=== PATIENT | male | born 1940 | race Caucasian/White ===

== ENCOUNTER 2017-01-01 10:59 | Inpatient (IN) | payer MEDICARE ==
[2017-01-01 11:38] LABS: #Eosinphils 0.1 thou/uL (0.0-0.7); #Lymphocytes 0.8 thou/uL (1.20-3.40); #Monocytes 0.5 thou/uL (0.11-0.59); #Neutrophils 4.9 thou/uL (1.40-6.50); %Basophils 0.4 % (0.0-1.0); %Eosinophils 2.3 % (0.0-10.0); %Lymphocytes 12.4 % (21.0-51.0); %Monocytes 7.4 % (0.0-10.0); Hematocrit 41.1 % (42.0-52.0); Mean Platelet Volume 6.9 fL (7.4-10.4); Red Blood Cell (RBC) Count 4.02 mill/uL (4.70-6.10); White Blood Cell (WBC) Count 6.3 thou/uL (4.8-10.8)
[2017-01-01 12:00] LABS: ALT (SGPT) 15 U/L (8-55); AST (SGOT) 19 U/L (5-34); Alkaline Phosphatase 57 U/L (40-150); Anion Gap 15 mmol/L (10-20); BUN (Urea Nitrogen) 19 mg/dL (8.4-25.7); Bilirubin, Total 0.7 mg/dL (0.2-1.2); Calc. Creatinine Clearance 0 mL/min (70-130); Calcium 9.5 mg/dL (7.8-10.44); Carbon Dioxide 22 mmol/L (23-31); Chloride 95 mmol/L (98-107); Estimated GFR-MDRD 86; Globulin 2.9 g/dL (2.4-3.5); Protein, Total 6.9 g/dL (5.8-8.1)
[2017-01-01 12:05] LABS: Troponin I Less than 0.010 ng/mL (< 0.028)
--- NOTE | 2017-01-01 12:35 | CT ---
CT BRAIN: Date: 01/01/17 PROVIDED CLINICAL HISTORY: Seizure. FINDINGS: Evaluation is limited by patient motion. There is no evidence for mass-producing intracranial hemorrhage. There is no shift of the midline str uctures. Basilar cisterns appear patent. The extracranial soft tissues and osseous structures demonst rate no significant abnormality. IMPRESSION: No evidence for intracranial hemorrhage or mass effect, with limitations due to patient motion. POS: JOIE
--- NOTE | 2017-01-01 12:37 | CT ---
CT CERVICAL SPINE: Date: 01/01/17 PROVIDED CLINICAL HISTORY: Fall status post seizure. FINDINGS: There is no evidence for fracture. There is advanced multilevel cervical degenerative change. There i s anterolisthesis of C4 on C5 by approximately 4.0 mm, which appears to be due to degenerative change s at this level. There is no prevertebral soft tissue swelling apparent. The visualized lung apices appear clear. Vascular calcifications are seen. IMPRESSION: No evidence for fracture or traumatic subluxation. Advanced cervical degenerative changes are seen. POS: JOIE
--- NOTE | 2017-01-01 12:39 | RAD ---
PORTABLE CHEST: Date: 01/01/17 PROVIDED CLINICAL HISTORY: Seizure. FINDINGS: No comparisons. Cardiac and mediastinal silhouette is within normal limits. No focal consolidation is evident. The vargas pine nature of this study limits evaluation for pleural fluid and pneumothorax. Vascular calcificatio ns are seen. IMPRESSION: No evidence for an acute cardiopulmonary process. POS: [facility]
[2017-01-01] MEDS ORDERED: Lidocaine 1% w/Epinephrine 1:200K 30 ML VIAL ONE (13:50)
[2017-01-01] MEDS ORDERED: Adacel (T-DAP) 0.5 ML VIAL ONE (14:35)
--- NOTE | 2017-01-01 14:48 | HP ---
PRIMARY CARE PHYSICIAN: Lynette Valdez M.D. REASON FOR ADMISSION: Acute encephalopathy, suspected seizure. HISTORY OF PRESENT ILLNESS: A 76-year-old male who has history of coronary artery disease, hypertens ion, dyslipidemia, and peripheral vascular disease who was brought to emergency room for suspected se izure and encephalopathy. The patient is completely altered, snoring in the emergency room and he is not able to provide any hi story, but patient's present at bedside in the emergency room, who provided most of the history. Today, patient woke up, at that time, he was feeling fine. Both and drank coffee and vargas bsequently patient went to kitchen and patient's noticed voice. At that time, she noticed that the patient was having seizure type of activity and patient was unresponsive and that is why she imme diately called paramedics and subsequently paramedics brought him to the emergency room. In the emergency room, patient had CT brain which did not show any acute process, but patient got inj ury to his head from falling, which had some bleeding. The patient had minor laceration on his scalp . CT cervical spine and chest x-ray was unremarkable. When I saw this patient, the patient was completely disoriented, snoring, though hemodynamically stab le in the emergency room. Today, patient was agitated and combative and before coming to the ER, patient was given Ativan by jorge freire. The patient's reports and gives history of episode which was exactly identical and similar that happened in 09/2016. At that time, patient was in [place], [place]. At that time, patient was in a restaurant and all of suddenly patient became altered and he was having tonic clonic activi ty of hands and he became unresponsive and paramedics were called and patient was taken to [facility]. Patient's reports that overnight patient stayed and patient had all kind of testing including CT, MRI, echo and playground monitor. Next day, patient left AMA. Cardiology recom mended cardiac catheterization, but it was not done. All neuro workup was negative. The patient sta yed in a hotel after leaving against medical advice and patient does not have any recall of 3 days si nce then, even after discharge from the hospital. At that time, patient was combative and has requir ed lot of doses of Ativan during that admission at [place], [place]. After returning to [place], they saw primary care physician as well as the neurologist, aurea Tidwell they looked at all records from [facility] and they could not find any etiology for that e vent. The patient was not kept on any seizure medication. Yesterday, patient had a of a close family member and patient was having difficulty putting t ie on his shirt that was pretty much unusual for him. The patient is pretty much unsteady as well an d he requires a walker, but he never had any fall or any head injury. He did not have any fever, chi lls, nausea, vomiting, constipation, diarrhea, melena, and hematochezia. He did not have any unusual medication or any recent travel. After yesterday's , patient was fatigued, but he was up to his baseline. The patient's and son denies any worsening dementia, but they are feeling that ba sed on their health, they are okay. He never had seizure before September and he did not have any seizure or any other altered mental status in between. REVIEW OF SYSTEMS: All review of systems tried to review with the patient, but unable to review at t his point because of encephalopathy. ALLERGIES: No known drug allergies. CURRENT HOME MEDICATIONS: Aspirin 81 mg daily, Toprol-XL 50 mg twice daily, lisinopril 10 mg twice d aily, hydrochlorothiazide 25 mg p.o. daily, Lipitor 80 mg p.o. at bedtime, Coenzyme Q10 100 mg p.o. d aily, nitroglycerin on p.r.n. basis, cilostazol 100 mg twice daily, omeprazole 20 mg daily, gabapenti n 200 mg twice daily, naproxen 500 mg twice daily, tramadol 50 mg as needed, multivitamin 1 tablet p. o. daily, vitamin D3 1 tablet p.o. daily, Biotin 1 tablet p.o. daily, omega-3 one tablet daily. PAST MEDICAL HISTORY: Coronary artery disease, history of prostate cancer, peripheral vascular disea se, hypertension, dyslipidemia, and history of umbilical hernia. PAST SURGICAL HISTORY: Cardiac catheterization x2, prostatectomy, umbilical hernia repair, right com mon femoral endarterectomy by Dr. Lee. PAST PSYCHIATRIC HISTORY: Reviewed and negative. SOCIAL HISTORY: Patient is . He lives at home with his in [facility]. He drinks a c ouple of beers on a daily basis. He is a former smoker. He quit smoking more than 10 years ago. He denies any other illicit drug abuse. FAMILY HISTORY: No strong family history of premature coronary artery disease, stroke or cancer. No family history of seizure disorder. EMERGENCY ROOM COURSE: Patient is given IV fluid. PHYSICAL EXAMINATION: VITAL SIGNS: Currently in the emergency room, blood pressure 117/75, pulse 93, respiratory rate 22, temperature 98.6, saturation 88% on room air, but 95% on 2-3 liters of nasal cannula oxygen, and weig ht 97.5 kilograms. GENERAL: Patient is currently encephalopathic. No obvious acute distress and hemodynamically stable . HEAD: Normocephalic. The patient does have minor laceration on the scalp on the posterior aspect. EYES: Pupils round and reactive to light. Extraocular muscle intact. No nystagmus. ENT: Oropharynx within normal limits. Moist mucous membranes. No oral lesions. No pharyngeal eryt cosme, no exudate. NECK: Supple. Range of motion is normal. No meningeal signs of irritation. LUNGS: Clear to auscultation without any rhonchi or rales. CARDIAC: S1 and S2 regular without any murmur. ABDOMEN: Obesity present. Bowel sounds present, nontender, nondistended. No organomegaly, no mass, no suprapubic tenderness. BACK: Examination unremarkable. No CVA tenderness. EXTREMITIES: Upper extremity passive movements of all joints are normal. Lower extremity; passive m ovement of all joints are normal. NEUROLOGIC: Detailed neurological examination is not possible, but looking at him, patient is moving all 4 limbs. Unable to find any focal deficits. SKIN: No skin rash. PSYCHIATRIC: Unable to assess at this point. IMAGING AND SIGNIFICANT LABORATORY DATA: 1. CT brain based on my review, no acute intracranial process. CT cervical spine showing degenerati ve spine changes, but no acute fracture or dislocation. Chest x-ray based on my review, no acute car diopulmonary process. 2. CBC: WBC 6.3, hemoglobin 14.5, platelets 169, and MCV 102. 3. BMP: Sodium 128, potassium 4.1, chloride 95, carbon dioxide 22, BUN 19, creatinine 0.87, glucose 117, calcium 9.5. 4. LFT: AST 19, ALT 15, alkaline phosphatase 57, albumin 4.0. CK 204, CK-MB 5.5, troponin I less t [place] 0.010. Prolactin 24.20. 5. EKG based on my review, sinus rhythm without any acute ischemic changes. ASSESSMENT AND PLAN/IMPRESSION: 1. Acute encephalopathy, etiology uncertain. The patient does have elevated prolactin and patient m ight have seizure activity, but this was as per explanation from patient's , patient had full wor kup done regarding this type of event and it was completely unremarkable. We will consult Neurology as well as we will admit him to stroke floor. We will do neuro check every 4 hourly. I will empiric ally start Keppra 1 gram IV twice daily considering this seizure activity. During this admission, we will obtain EEG, MRI brain, echocardiography, carotid ultrasound as a part of workup. We will also check B12 and folate level. We will also check urinalysis and urine drug screen. We will also check magnesium and TSH as a part of workup. 2. Seizure activity. Patient has second episode of similar type of episode. At this point, suspect ing seizure activity, but underlying arrhythmia cannot be entirely excluded. We are doing MRI, carot id ultrasound, echocardiography, EEG, consulting Neurology and starting anti-seizure medication. We will provide necessary to prepare fall, seizure precautions, aspiration precaution and we will keep h im n.p.o. given his encephalopathy at this point. If the patient's condition does not improve, then patient may benefit from a lumbar puncture. 3. Macrocytosis. We will give him multivitamin IV daily. We will check B12, folate level tomorrow, may be related with his alcohol use. 4. Hyponatremia likely related with use of hydrochlorothiazide and may be related with dehydration. Patient will be given IV fluid and we will check random cortisol, TSH, urine osmolarity, and serum o smolarity. 5. Hypertension. Currently, patient's blood pressure is normal, so we will hold all oral blood pres sure medication at this point. When patient is more stable and able to take p.o., then we will resum e patient's home medication after verification of dose. 6. Dyslipidemia. We will check lipid profile tomorrow and when patient is able to take p.o. intake then we will start Lipitor 80 mg p.o. at bedtime. 7. Peripheral vascular disease. Similarly, patient will resume cilostazol 100 mg twice daily upon v erification of dose as well as when patient able to take p.o. As patient is completely encephalopath ic and he is not safe to take any p.o. medication, that is why we will hold all oral medication. 8. Deep venous thrombosis prophylaxis, Lovenox 40 mg subcu daily. 9. Gastrointestinal prophylaxis, Pepcid 20 mg IV b.i.d. 10. Code status: The patient is FULL CODE. The patient's is surrogate decision maker. Disposition plan based on clinical course. We are expecting patient's stay in hospital more than 2 m idnights. Plan of care discussed with the patient, patient's son and other family member at bedside.
[2017-01-01 14:57] LABS: Troponin I 0.073 ng/mL (< 0.028)
[2017-01-01] MEDS ORDERED: Aspirin 300 MG Suppository ONE (16:41)
[2017-01-01] MEDS ORDERED: Ondansetron ODT 4 MG TAB PO PRN (18:15)
[2017-01-01] MEDS ORDERED: Milk Of Magnesia 30 ML UDCUP PO PRN (18:15)
[2017-01-01] MEDS ORDERED: Acetaminophen 325 MG TAB PO PRN (18:15)
[2017-01-01] MEDS ORDERED: Eucerin (Mineral Oil/Petrolatum,White) 30 gm Jar TOP PRN (18:15)
[2017-01-01] MEDS ORDERED: Bisacodyl 10 MG SUPP PR PRN (18:15)
[2017-01-01] MEDS ORDERED: Artificial Tears 18 DROP/0.9 ML EA EYE PRN (18:15)
[2017-01-01] MEDS ORDERED: hydrALAZINE 20 MG/ML VIAL SLOW IVP PRN (18:15)
[2017-01-01] MEDS ORDERED: Loratadine 10 MG TAB PO PRN (18:15)
[2017-01-01] MEDS ORDERED: Diabetic Tussin 200 MG/10 ML UDCUP PO PRN (18:15)
[2017-01-01] MEDS ORDERED: Sodium Chloride 0.65% Nasal 44 ML BOT EA NARE PRN (18:15)
[2017-01-01] MEDS ORDERED: Ondansetron HCl/PF 4 MG/2 ML Vial IVP PRN (18:15)
[2017-01-01] MEDS ORDERED: Mag-Al 1200 mg/1200 mg/30 ML UDCUP PO PRN (18:15)
[2017-01-01] MEDS ORDERED: Loperamide HCl 2 MG CAP PO PRN (18:15)
[2017-01-01] MEDS ORDERED: Lorazepam 2 MG/ML VIAL SLOW IVP PRN (18:15)
[2017-01-01] MEDS ORDERED: Chloraseptic Spray 180 ml Bottle PO PRN (18:15)
[2017-01-01 18:19] VITALS: BMI 24.0
[2017-01-01 18:46] LABS: Troponin I 0.125 ng/mL (< 0.028)
--- NOTE | 2017-01-01 19:54 | ULT ---
ULTRASOUND CAROTID DOPPLER: Date: 01/01/17 HISTORY: Syncope/seizure. COMPARISON: None. TECHNIQUE: Real-time Murphy scale, color Doppler, and spectral analysis of the extracranial carotid arteries and v ertebral arteries was performed with a linear transducer. FINDINGS: Extensive calcific plaque of the common carotid arteries and carotid bulbs. Antegrade flow to both ve rtebral arteries. No elevated peak systolic velocity to suggest hemodynamically significant stenosis. IMPRESSION: No hemodynamically significant stenosis. POS: JOIE
[2017-01-01] MEDS: levETIRAcetam In NaCl (Iso-Os) 1,000 MG in Premix Bag 1 BAG IVPB SCH ×2 (20:10)
[2017-01-01] MEDS: Dextrose 5 % And 0.9 % NaCl 1,000 ML IV SCH (20:10)
[2017-01-01] MEDS: Famotidine/PF 20 mg/2ml Vial SLOW IVP SCH (20:16)
[2017-01-01 22:52] LABS: Bilirubin Negative (Negative); Blood, Urine Negative (Negative); Glucose, Urine (Dipstick) Negative (Negative); Ketone, Urine Trace mg/dL (Negative); Nitrite Negative (Negative); Protein, Urine (Dipstick) Negative (Neg-Trace); Urobilinogen 0.2 mg/dL (0.2-1.0)
[2017-01-01 22:54] LABS: Bacteria/HPF None Seen HPF (None Seen); Hyaline Casts/LPF 0-3 HYALINE CAST LPF (0-3 Hyaline); RBC/HPF 0-3 HPF (0-3); Squamous Epithelial None Seen HPF (0-3); WBC/HPF None Seen HPF (0-3)
[2017-01-01 22:58] LABS: Osmolality, Urine 354 mOsm/kg (300-900)
[2017-01-01 23:03] LABS: Amphetamine Not Detected (NotDetected); Methadone Not Detected (NotDetected); Methamphetamine Not Detected (NotDetected)
[2017-01-01 23:25] LABS: Sodium, Urine 102 mmol/L (Not Available)
[2017-01-02 03:55] LABS: #Eosinphils 0.1 thou/uL (0.0-0.7); #Lymphocytes 0.8 thou/uL (1.20-3.40); #Monocytes 0.6 thou/uL (0.11-0.59); #Neutrophils 4.7 thou/uL (1.40-6.50); %Basophils 0.4 % (0.0-1.0); %Eosinophils 1.3 % (0.0-10.0); %Lymphocytes 12.7 % (21.0-51.0); Hematocrit 37.8 % (42.0-52.0); Mean Platelet Volume 6.8 fL (7.4-10.4); Red Blood Cell (RBC) Count 3.67 mill/uL (4.70-6.10); White Blood Cell (WBC) Count 6.1 thou/uL (4.8-10.8)
[2017-01-02 04:18] LABS: ALT (SGPT) 15 U/L (8-55); AST (SGOT) 22 U/L (5-34); Alkaline Phosphatase 53 U/L (40-150); Anion Gap 13 mmol/L (10-20); BUN (Urea Nitrogen) 16 mg/dL (8.4-25.7); Bilirubin, Total 1.1 mg/dL (0.2-1.2); Calc. Creatinine Clearance 117 mL/min (70-130); Calcium 8.9 mg/dL (7.8-10.44); Carbon Dioxide 23 mmol/L (23-31); Chloride 99 mmol/L (98-107); Estimated GFR-MDRD Greater than 90; Globulin 2.6 g/dL (2.4-3.5); Magnesium 1.5 mg/dL (1.6-2.6); Protein, Total 6.3 g/dL (5.8-8.1)
[2017-01-02] MEDS: Dextrose 5 % And 0.9 % NaCl 1,000 ML IV SCH (06:04)
[2017-01-02] MEDS: levETIRAcetam In NaCl (Iso-Os) 1,000 MG in Premix Bag 1 BAG IVPB SCH ×2 (08:57)
[2017-01-02] MEDS: Famotidine/PF 20 mg/2ml Vial SLOW IVP SCH (08:57)
[2017-01-02] MEDS: Enoxaparin Sodium 40 MG/0.4 ML SYRINGE SC SCH (08:57)
[2017-01-02] MEDS ORDERED: Multivit, Adult Inj 10 ML VIAL IV SCH (09:00)
[2017-01-02] MEDS ORDERED: Multivitamins, Adult 10 ML in Sodium Chloride 0.9% 500 ML IV SCH ×2 (09:00)
--- NOTE | 2017-01-02 09:49 | PDOC.PN ---
- Subjective Encounter Start Date: 01/02/17 Encounter Start Time: 07:15 -: old records requested/rev pt is confused this morning but improved from yesterday, alert and answers questions, no further seizure - Objective Resuscitation Status: Resuscitation Status FULL:Full Resuscitation MAR Reviewed: Yes Vital Signs & Weight: Vital Signs (12 hours) Temp Pulse Resp BP Pulse Ox 01/02/17 07:35 97.7 F 97 20 156/88 H 90 L 01/02/17 04:12 96.6 F L 76 16 130/70 92 L 01/02/17 00:33 97.9 F 81 18 117/52 L 93 L Weight Weight 220 lb 4.8 oz I&O: 01/01/17 01/02/17 01/03/17 06:59 06:59 06:59 Intake Total 1157 Output Total 700 Balance 457 Result Diagrams: 01/02/17 03:42 01/02/17 03:42 EKG Reviewed by me: Yes Phys Exam - Physical Examination Constitutional: NAD HEENT: PERRLA, moist MMs, sclera anicteric Neck: no JVD, supple Respiratory: no wheezing, no rales, no rhonchi Cardiovascular: RRR, no significant murmur, no rub Gastrointestinal: soft, non-tender, no distention, positive bowel sounds Musculoskeletal: no edema, pulses present Neurological: non-focal, moves all 4 limbs Lymphatic: no nodes Psychiatric: normal affect Deviation from normal: confused Skin: no rash, normal turgor Dx/Plan (1) Acute encephalopathy Code(s): G93.40 - ENCEPHALOPATHY, UNSPECIFIED Status: Acute (2) Elevated troponin Code(s): R74.8 - ABNORMAL LEVELS OF OTHER SERUM ENZYMES Status: Acute (3) Hyponatremia Code(s): E87.1 - HYPO-OSMOLALITY AND HYPONATREMIA Status: Acute (4) Seizure Code(s): R56.9 - UNSPECIFIED CONVULSIONS Status: Acute (5) Dyslipidemia Code(s): E78.5 - HYPERLIPIDEMIA, UNSPECIFIED Status: Chronic (6) GERD (gastroesophageal reflux disease) Code(s): K21.9 - GASTRO-ESOPHAGEAL REFLUX DISEASE WITHOUT ESOPHAGITIS Status: Chronic (7) Hypertension Code(s): I10 - ESSENTIAL (PRIMARY) HYPERTENSION Status: Chronic (8) Macrocytic anemia Code(s): D53.9 - NUTRITIONAL ANEMIA, UNSPECIFIED Status: Chronic (9) Obesity (BMI 30.0-34.9) Code(s): E66.9 - OBESITY, UNSPECIFIED Status: Chronic (10) Peripheral neuropathy Code(s): G62.9 - POLYNEUROPATHY, UNSPECIFIED Status: Chronic - Plan cont current plan of care, PT/OT * DC IVF today * start selected home medication * add folic acid and vitamin B12 * medication reviewed as below * symptomatic treatment. * MRI and EEG today * Neurology input pending * start PT today * will monitor * will continue gayathri Review of Systems - Review of Systems Other: not reliable today due to confusion - Medications/Allergies Allergies/Adverse Reactions: Allergies Allergy/AdvReac Type Severity Reaction Status Date / Time BUG SPRAY Allergy Mild Uncoded 01/01/17 22:16 Medications: Current Medications Acetaminophen (Tylenol) 650 mg PO Q4H PRN PRN Reason: Headache/Fever or Pain Al Hydroxide/Mg Hydroxide (Maalox) 30 ml PO Q6H PRN PRN Reason: Heartburn or Indigestion Artificial Tears (Tears Naturale) 0 drop EA EYE PRN PRN PRN Reason: Dry Eyes Aspirin (Aspirin Chewable) 81 mg PO DAILY [facility] Bisacodyl (Dulcolax) 10 mg ND Q24H PRN PRN Reason: Constipation Cilostazol (Pletal) 100 mg PO BID-AC [facility] Cyanocobalamin (Vitamin B-12) 1,000 mcg PO DAILY [facility] Enoxaparin Sodium (Lovenox) 40 mg SC 0900 [facility] Last Admin: 01/02/17 08:57 Dose: 40 mg Folic Acid (Folvite) 1 mg PO DAILY [facility] Gabapentin (Neurontin) 200 mg PO BID [facility] Guaifenesin (Robitussin Sf) 200 mg PO Q4H PRN PRN Reason: Cough Hydralazine HCl (Apresoline) 10 mg SLOW IVP Q4H PRN PRN Reason: Systolic BP > 180 Levetiracetam 1,000 mg/ Device 100 mls @ 200 mls/hr IVPB BID [facility] Last Admin: 01/02/17 08:57 Dose: 100 mls Lisinopril (Zestril) 10 mg PO BID [facility] Loperamide HCl (Imodium) 2 mg PO PRN PRN PRN Reason: Diarrhea/Loose Stools Loratadine (Claritin) 10 mg PO DAILYPRN PRN PRN Reason: Sinus Symptoms Lorazepam (Ativan) 1 mg SLOW IVP Q4H PRN PRN Reason: Anxiety/Agitation Magnesium Hydroxide (Milk Of Magnesium) 30 ml PO DAILYPRN PRN PRN Reason: Constipation Metoprolol Tartrate (Lopressor) 50 mg PO BID [facility] Mineral Oil/White Petrolatum (Eucerin Cream) 0 gm TOP BIDPRN PRN PRN Reason: Dry Skin Nitroglycerin (Nitrostat) 0.4 mg SL Q5MIN PRN PRN Reason: Chest Pain Non-Formulary Medication (Atorvastatin Calcium [Lipitor]) 80 mg PO HS [facility] Non-Formulary Medication (Biotin [Biotin]) 1,000 mcg PO QAM [facility] Non-Formulary Medication (Cholecalciferol (Vitamin D3) [Vitamin D3]) 2,000 unit PO QAM [facility] Non-Formulary Medication (Multivitamin With Minerals [Multiple Vitamin]) 1 tablet PO QAM [facility] Non-Formulary Medication (Ubidecarenone [Coq-10]) 100 mg PO DAILY [facility] Ondansetron HCl (Zofran Odt) 4 mg PO Q6H PRN PRN Reason: Nausea/Vomiting Ondansetron HCl (Zofran) 4 mg IVP Q6H PRN PRN Reason: Nausea/Vomiting Pantoprazole Sodium (Protonix) 40 mg PO DAILY [facility] Phenol (Chloraseptic [place] 180 Ml Bot) 0 ml PO PRN PRN PRN Reason: Sore Throat Sodium Chloride ([place] Nasal [place] 0.65%) 0 ml EA NARE QIDPRN PRN PRN Reason: Nasal Congestion Sodium Chloride (Flush - Normal Saline) 10 ml IVF Q12HR [facility] Last Admin: 01/02/17 08:57 Dose: 10 ml Sodium Chloride (Flush - Normal Saline) 10 ml IVF PRN PRN PRN Reason: Saline Flush Tramadol HCl (Ultram) 50 mg PO Q6H PRN PRN Reason: Mild Breakthrough Pain
[2017-01-02] MEDS ORDERED: traMADol HCl 50 MG TAB PO PRN (09:51)
[2017-01-02] MEDS ORDERED: Nitroglycerin 0.4 MG TAB (25 Tab Bottle) SL PRN (09:51)
--- NOTE | 2017-01-02 12:35 | MRI ---
MRI BRAIN WITH AND WITHOUT CONTRAST: HISTORY: Seizure disorder. COMPARISON: CT brain 01/01/2017. TECHNIQUE: Multiplanar, multisequence MRI performed prior to and after the intravenous administration of contras t. FINDINGS: There is a degree of limitation due to motion throughout all sequences. On the diffusion weighted im aging sequence, there are no abnormal areas of diffusion restriction to suggest infarction. This is confirmed on the ADC map. There is moderate atrophy. There is moderate small vessel white matter disease. No abnormal intraaxial or extraaxial enhancement. IMPRESSION: 1. Severely limited examination due to motion. No acute infarction. 2. Small focus of susceptibility along the right posterior parietal lobe cortex, incompletely evalua liliana due to extensive motion. This may represent a small hemorrhage. A repeat head CT is recommended . POS: JOIE
[2017-01-02] MEDS: Cilostazol 100 MG TAB PO SCH (16:28)
[2017-01-02] MEDS ORDERED: Atorvastatin Calcium 40 MG TAB PO SCH (21:00)
[2017-01-02] MEDS: Gabapentin 100 MG CAP PO SCH (21:09)
[2017-01-02] MEDS: levETIRAcetam 500 MG TAB PO SCH (21:10)
[2017-01-02] MEDS: Metoprolol Tartrate 50 MG TAB PO SCH (21:10)
[2017-01-02] MEDS: Lisinopril 10 MG TAB PO SCH (21:10)
--- NOTE | 2017-01-02 22:07 | CON ---
DATE OF CONSULTATION: 01/02/2017 REASON FOR CONSULTATION: Seizure. HISTORY OF PRESENT ILLNESS: Mr. Reed is a pleasant 76-year-old male who has been consulted for evaluation of seizure-type activity. History is obtained from the patient as well as patient's dictated H&P note. The patient reports that he was in his normal state of health on yesterday. He had gotten up and ate breakfast and drank his coffee. He had gone inside and suddenly passed out. His had witnessed the event, who had noted that she heard a loud noise coming from inside when she went over there she noted for him to be having generalized tonic-clonic convulsion. He was then drowsy and sleepy with postictal confusion. There was no tongue biting or loss of bladder control with this episode. He was brought to the [facility] for further evaluation. He reports that he had another episode of passing out in September of this year. At that time, he was visiting [place] and had passed out. He was taken to nearby hospital where he was evaluated by a neurologist and was not started on any antiepileptic medication as it was felt that this may have been cardiogenic. Since then he has seen statistician applied and had an extensive workup done including 3-week cardiac loop monitor being placed , which all have been normal. He currently denies any headache, chest pain, palpitation, nausea, vomiting, abdominal pain, numbness, tingling or weakness. PAST MEDICAL HISTORY: Significant for hypertension, dyslipidemia, peripheral vascular disease and coronary artery disease. PAST SURGICAL HISTORY: Significant for cardiac catheterization, prostatectomy, umbilical hernia repair, right common femoral endarterectomy. SOCIAL HISTORY: He is . He denies smoking or illicit drug use. He does drink alcohol 1-2 beers on a daily basis. CURRENT MEDICATIONS: Please review MAR. ALLERGIES: No known drug allergies. FAMILY HISTORY: Noncontributory. REVIEW OF SYSTEMS: As mentioned above in the HPI, otherwise negative. PHYSICAL EXAMINATION: VITAL SIGNS: Blood pressure of 153/85, pulse of 98, temperature of 98.5, respirations of 20, O2 sats of 92% on room air. GENERAL: Well-developed, well-nourished male, in no apparent distress. RESPIRATORY: Clear to auscultation bilaterally. CARDIOVASCULAR: Regular rate and rhythm. NEUROLOGIC: Mental status: The patient is awake, alert, oriented x3. Speech and language: Fluent speech. Cranial nerves: Pupils are 3 mm and reactive. Visual solis are intact. Extraocular muscles are intact. No nystagmus noted. Face is symmetric. Tongue and uvula are midline. Motor exam showed normal tone and bulk with a 5/5 strength in both upper and lower extremities. Babinski : Plantar responses flexion bilaterally. Coordination intact to finger-nose- finger and finger tapping bilaterally. LABORATORY DATA: Labs are reviewed, which included CBC, CMP, B12, folate, TSH, prolactin, ammonia level, CPK, CK-MB and troponin, urinalysis and urine drug screen, which is significant for hemoglobin 13.2, hematocrit of 37.8. Sodium 131. Troponin of 0.073, prolactin of 24.2, otherwise unremarkable. IMAGING STUDIES: MRI brain without contrast was reviewed, which showed no acute intracranial abnormality. There is a questionable susceptibility in the right posterior parietal region for which the radiologist has recommended to obtain a head CT. IMPRESSION: Generalized tonic-clonic seizure. ASSESSMENT AND PLAN: Mr. Reed is a pleasant 76-year-old male who presented with passing out spell followed by generalized tonic-clonic convulsions noted by . Given that this is his second episode of passing out with a seizure-like activity. I would recommend starting him on Keppra 500 mg b.i.d. I have reviewed his EEG, which showed mild slowing, but no epileptiform discharges or subtransients estimated. If he remains seizure free , he is okay to be discharged to home with outpatient followup in my clinic in 4 -6 weeks. Thank you for your consultation. KATERYNA
[2017-01-03] MEDS ORDERED: Ubidecarenone 50 MG CAP PO SCH (09:00)
[2017-01-03] MEDS ORDERED: Folic Acid 1 MG TAB PO SCH (09:00)
[2017-01-03] MEDS ORDERED: Multivitamin W/ Minerals 1 TAB PO SCH (09:00)
[2017-01-03] MEDS ORDERED: Cyanocobalamin (Vitamin B-12) 1,000 MCG TAB PO SCH (09:00)
[2017-01-03] MEDS ORDERED: BIOTIN 1000 MCG PO SCH (09:00)
[2017-01-03] MEDS: Gabapentin 100 MG CAP PO SCH (09:20)
[2017-01-03] MEDS: Lisinopril 10 MG TAB PO SCH (09:20)
[2017-01-03] MEDS: levETIRAcetam 500 MG TAB PO SCH (09:21)
[2017-01-03] MEDS: Metoprolol Tartrate 50 MG TAB PO SCH (09:21)
[2017-01-03] MEDS: Cilostazol 100 MG TAB PO SCH (09:21)
[2017-01-03] MEDS: Enoxaparin Sodium 40 MG/0.4 ML SYRINGE SC SCH (09:25)
[2017-01-03 11:45] VITALS: TEMP 97.8
[2017-01-03 13:46] VITALS: BP 140/71
--- NOTE | 2017-01-03 13:53 | PDOC.PN ---
- Subjective Encounter Start Date: 01/03/17 Encounter Start Time: 10:05 -: old records requested/rev Patient seen and examined. No new complaints. No overnight events - Objective Resuscitation Status: Resuscitation Status FULL:Full Resuscitation MAR Reviewed: Yes Vital Signs & Weight: Vital Signs (12 hours) Temp Pulse Pulse Pulse Resp BP BP 01/03/17 11:20 97.8 F 73 71 70 18 140/71 01/03/17 10:33 72 144/88 H 01/03/17 09:20 169/90 H 01/03/17 08:00 97.8 F 73 18 01/03/17 04:45 BP BP Pulse Ox Pulse Ox 01/03/17 11:20 128/78 128/78 95 95 01/03/17 10:33 01/03/17 09:20 01/03/17 08:00 169/90 H 93 L 01/03/17 04:45 95 Weight Weight 202 lb 8 oz I&O: 01/02/17 01/03/17 01/04/17 06:59 06:59 06:59 Intake Total 1157 1600 120 Output Total 700 200 Balance 457 1400 120 Result Diagrams: 01/02/17 03:42 01/02/17 03:42 Phys Exam - Physical Examination Constitutional: NAD HEENT: PERRLA, moist MMs, sclera anicteric Neck: no JVD, supple Respiratory: no wheezing, no rales, no rhonchi Cardiovascular: RRR, no significant murmur, no rub Gastrointestinal: soft, non-tender, no distention, positive bowel sounds Musculoskeletal: no edema, pulses present Neurological: non-focal, normal sensation Psychiatric: normal affect, A&O x 3 Skin: no rash, normal turgor Dx/Plan (1) Acute encephalopathy Code(s): G93.40 - ENCEPHALOPATHY, UNSPECIFIED Status: Acute (2) Elevated troponin Code(s): R74.8 - ABNORMAL LEVELS OF OTHER SERUM ENZYMES Status: Acute (3) Hyponatremia Code(s): E87.1 - HYPO-OSMOLALITY AND HYPONATREMIA Status: Acute (4) Seizure Code(s): R56.9 - UNSPECIFIED CONVULSIONS Status: Acute (5) Dyslipidemia Code(s): E78.5 - HYPERLIPIDEMIA, UNSPECIFIED Status: Chronic (6) GERD (gastroesophageal reflux disease) Code(s): K21.9 - GASTRO-ESOPHAGEAL REFLUX DISEASE WITHOUT ESOPHAGITIS Status: Chronic (7) Hypertension Code(s): I10 - ESSENTIAL (PRIMARY) HYPERTENSION Status: Chronic (8) Macrocytic anemia Code(s): D53.9 - NUTRITIONAL ANEMIA, UNSPECIFIED Status: Chronic (9) Obesity (BMI 30.0-34.9) Code(s): E66.9 - OBESITY, UNSPECIFIED Status: Chronic (10) Peripheral neuropathy Code(s): G62.9 - POLYNEUROPATHY, UNSPECIFIED Status: Chronic - Plan cont current plan of care, 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 * keppra po * follow up with neurology. Review of Systems - Review of Systems Constitutional: negative: Fever, Chills, Sweats, Weakness, Malaise, Other Eyes: negative: Pain, Vision Change, Conjunctivae Inflammation, Eyelid Inflammation, Redness, Other ENT: negative: Ear Pain, Ear Discharge, Nose Pain, Nose Discharge, Nose Congestion, Mouth Pain, Mouth Swelling, Throat Pain, Throat Swelling, Other Respiratory: negative: Cough, Dry, Shortness of Breath, Hemoptysis, SOB with Excertion, Pleuritic Pain, Sputum, Wheezing Cardiovascular: negative: Chest Pain, Palpitations, Orthopnea, Paroxysmal Noc. Dyspnea, Edema, Light Headedness, Other Gastrointestinal: negative: Nausea, Vomiting, Abdominal Pain, Diarrhea, Constipation, Melena, Hematochezia, Other Genitourinary: negative: Dysuria, Frequency, Incontinence, Hematuria, Retention , Other Musculoskeletal: negative: Neck Pain, Shoulder Pain, Arm Pain, Back Pain, Hand Pain, Leg Pain, Foot Pain, Other Skin: negative: Rash, Lesions, Aguilar, Bruising, Other - Medications/Allergies Allergies/Adverse Reactions: Allergies Allergy/AdvReac Type Severity Reaction Status Date / Time BUG SPRAY Allergy Mild Uncoded 01/01/17 22:16 Medications: Current Medications Acetaminophen (Tylenol) 650 mg PO Q4H PRN PRN Reason: Headache/Fever or Pain Al Hydroxide/Mg Hydroxide (Maalox) 30 ml PO Q6H PRN PRN Reason: Heartburn or Indigestion Artificial Tears (Tears Naturale) 0 drop EA EYE PRN PRN PRN Reason: Dry Eyes Aspirin (Aspirin Chewable) 81 mg PO DAILY CUONG Last Admin: 01/03/17 09:21 Dose: 81 mg Atorvastatin Calcium (Lipitor) 80 mg PO HS [facility] Last Admin: 01/02/17 21:09 Dose: 80 mg Bisacodyl (Dulcolax) 10 mg FL Q24H PRN PRN Reason: Constipation Cholecalciferol (Vitamin D3) 2,000 units PO DAILY [facility] Last Admin: 01/03/17 09:21 Dose: 2,000 units Cilostazol (Pletal) 100 mg PO BID-AC [facility] Last Admin: 01/03/17 09:21 Dose: 100 mg Coenzyme Q10 (Coenzyme Q10) 100 mg PO DAILY [facility] Last Admin: 01/03/17 09:20 Dose: 100 mg Cyanocobalamin (Vitamin B-12) 1,000 mcg PO DAILY [facility] Last Admin: 01/03/17 09:21 Dose: 1,000 mcg Enoxaparin Sodium (Lovenox) 40 mg SC 0900 [facility] Last Admin: 01/03/17 09:25 Dose: 40 mg Folic Acid (Folvite) 1 mg PO DAILY [facility] Last Admin: 01/03/17 09:21 Dose: 1 mg Gabapentin (Neurontin) 200 mg PO BID [facility] Last Admin: 01/03/17 09:20 Dose: 200 mg Guaifenesin (Robitussin Sf) 200 mg PO Q4H PRN PRN Reason: Cough Hydralazine HCl (Apresoline) 10 mg SLOW IVP Q4H PRN PRN Reason: Systolic BP > 180 Iron/Minerals/Multivitamins (Theragran M) 1 tab PO DAILY [facility] Last Admin: 01/03/17 09:21 Dose: 1 tab Levetiracetam (Keppra) 500 mg PO BID [facility] Last Admin: 01/03/17 09:21 Dose: 500 mg Lisinopril (Zestril) 10 mg PO BID [facility] Last Admin: 01/03/17 09:20 Dose: 10 mg Loperamide HCl (Imodium) 2 mg PO PRN PRN PRN Reason: Diarrhea/Loose Stools Loratadine (Claritin) 10 mg PO DAILYPRN PRN PRN Reason: Sinus Symptoms Lorazepam (Ativan) 1 mg SLOW IVP Q4H PRN PRN Reason: Anxiety/Agitation Last Admin: 01/03/17 00:26 Dose: 1 mg Magnesium Hydroxide (Milk Of Magnesium) 30 ml PO DAILYPRN PRN PRN Reason: Constipation Metoprolol Tartrate (Lopressor) 50 mg PO BID [facility] Last Admin: 01/03/17 09:21 Dose: 50 mg Mineral Oil/White Petrolatum (Eucerin Cream) 0 gm TOP BIDPRN PRN PRN Reason: Dry Skin Nitroglycerin (Nitrostat) 0.4 mg SL Q5MIN PRN PRN Reason: Chest Pain Ondansetron HCl (Zofran Odt) 4 mg PO Q6H PRN PRN Reason: Nausea/Vomiting Ondansetron HCl (Zofran) 4 mg IVP Q6H PRN PRN Reason: Nausea/Vomiting Pantoprazole Sodium (Protonix) 40 mg PO DAILY [facility] Last Admin: 01/03/17 09:21 Dose: 40 mg Phenol (Chloraseptic [place] 180 Ml Bot) 0 ml PO PRN PRN PRN Reason: Sore Throat Sodium Chloride ([place] Nasal [place] 0.65%) 0 ml EA NARE QIDPRN PRN PRN Reason: Nasal Congestion Sodium Chloride (Flush - Normal Saline) 10 ml IVF Q12HR [facility] Last Admin: 01/03/17 09:21 Dose: 10 ml Sodium Chloride (Flush - Normal Saline) 10 ml IVF PRN PRN PRN Reason: Saline Flush Tramadol HCl (Ultram) 50 mg PO Q6H PRN PRN Reason: Mild Breakthrough Pain
--- NOTE | 2017-01-03 15:27 | DIS ---
DATE OF ADMISSION: 01/01/2017 DATE OF DISCHARGE: 01/03/2017 PRIMARY CARE PHYSICIAN: Dr. Valdez. DISCHARGE DISPOSITION: Home with home health. PRIMARY DISCHARGE DIAGNOSES: 1. Acute encephalopathy. 2. Demand ischemia. 3. Hyponatremia, suspected seizure. SECONDARY DISCHARGE DIAGNOSES: Peripheral neuropathy, obesity, macrocytic anemia, hypertension, jed roesophageal reflux disease and dyslipidemia. PRIMARY PROCEDURE/OPERATION: None. RADIOLOGICAL INVESTIGATION: EEG, which showed diffuse cerebral slow down without any epileptiform ac tivity. CT brain was negative for any acute intracranial process. CT cervical spine negative for an y fracture or dislocation. Chest x-ray was normal. MRI brain was negative for any acute intracrania l process. Carotid Doppler was negative for any stenosis. Echocardiography was unremarkable. DISCHARGE MEDICATIONS: Aspirin 81 mg p.o. daily, Lipitor 80 mg p.o. at bedtime, Biotin 1000 mcg p.o. daily, vitamin D3 2000 units p.o. daily, Pletal 100 mg twice daily, vitamin B12 1000 mcg p.o. daily, folic acid 1 mg p.o. daily, Neurontin 200 mg p.o. b.i.d., hydrochlorothiazide 25 mg p.o. daily, Kepp ra 500 mg p.o. b.i.d., lisinopril 10 mg p.o. b.i.d., metoprolol 50 mg p.o. b.i.d., multivitamin 1 tab let p.o. daily, nitroglycerin 0.4 mg sublingual p.r.n., omeprazole 20 mg p.o. daily, tramadol 50 mg q .6 hourly p.r.n. and Coenzyme Q10 100 mg p.o. daily. CONTRAINDICATIONS: None. CODE STATUS: FULL CODE. 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 Lashae Martines was consulted while in hospital. TEST RESULTS PENDING ON DISCHARGE: None. DISCHARGE PLAN: Post hospital, the patient will follow up with Neurology. HOSPITAL COURSE: A 76-year-old male who was brought to the emergency room for altered mental status. There was suspicion for seizure activity. The patient was admitted by me. Please see my progress note for further detail. We did a metabolic workup and only found with macrocytosis and that is why during this admission, we started folic acid and vitamin B12. We did MRI, which was essentially unre markable. Neurology saw this patient and they recommended to continue Keppra. The patient had initi al CT brain in the emergency room, which was negative. All workup at this time came back unremarkabl e. Now, patient's condition is improved to baseline. Patient's does not want to send him to any ki nd of placement. We arranged home health before discharge. Patient is seen and examined at bedside today. Please see my progress note from today for further details.
== END 2017-01-03 15:38 | disposition home health service (06) | DRG 100 ==
LOC: ERS 10:59 → 2SE 17:59
PROVIDERS: ADMIT Internal Medicine; ATTEND Internal Medicine
PROC: 0HQ0XZZ Repair Scalp Skin, External Approach (ICD-10-PCS; principal; 2017-01-01)
DX: G40.409 Other generalized epilepsy and epileptic syndromes, not intractable, without status epilepticus (principal); G93.40 Encephalopathy, unspecified; I24.8 Other forms of acute ischemic heart disease; G62.9 Polyneuropathy, unspecified; E87.1 Hypo-osmolality and hyponatremia; D53.9 Nutritional anemia, unspecified; I10 Essential (primary) hypertension; S01.01XA Laceration without foreign body of scalp, initial encounter; E78.5 Hyperlipidemia, unspecified; D75.89 Other specified diseases of blood and blood-forming organs; I25.10 Atherosclerotic heart disease of native coronary artery without angina pectoris; I73.9 Peripheral vascular disease, unspecified; W18.30XA Fall on same level, unspecified, initial encounter; Y92.010 Kitchen of single-family (private) house as the place of occurrence of the external cause; Z79.82 Long term (current) use of aspirin; Z85.46 Personal history of malignant neoplasm of prostate; Z90.79 Acquired absence of other genital organ(s); Z87.891 Personal history of nicotine dependence; E66.9 Obesity, unspecified; Z68.28 Body mass index [BMI] 28.0-28.9, adult; K21.9 Gastro-esophageal reflux disease without esophagitis; Z23 Encounter for immunization
CPT/HCPCS: 12001; 36415; 70450; 70553; 71010; 72125; 80053; 80306; 81001; 82140; 82550; 82553; 82570; 82607; 82746; 83605; 83735; 83930; 83935; 84146; 84300; 84443; 84484; 85025; 87086; 90471; 90715; 93005; 93306; 93880; 94760; 95816; 95819; 96360; 96361; A4216; G8978-GP-CL; G8979-GP-CI; G8987-GO-CJ; G8988-GO-CI; J1650; J1953; J2060; J7050; S0028

== ENCOUNTER 2018-06-20 20:36 | Inpatient (IN) | payer MEDICARE ==
[2018-06-20] MEDS ORDERED: Acetaminophen 650 MG Suppository PR PRN (22:32)
[2018-06-20] MEDS ORDERED: Ondansetron PF 4 MG/2 ML Vial IVP PRN (22:32)
[2018-06-20] MEDS ORDERED: Ondansetron ODT 4 MG TAB PO PRN (22:32)
[2018-06-20] MEDS ORDERED: Acetaminophen 325 MG TAB PO PRN (22:32)
[2018-06-20] MEDS ORDERED: Bisacodyl 5 MG TAB PO PRN (22:32)
[2018-06-20] MEDS ORDERED: Senokot S 8.6-50 MG TAB PO PRN (22:32)
[2018-06-20 23:24] VITALS: BMI 28.2
--- NOTE | 2018-06-21 00:05 | HP ---
CODE STATUS: Full. Code status discussed with the patient and his at length. PRIMARY CARE PHYSICIAN: Harsh Valdez MD RESIDENT: Louie Puri MD ATTENDING: Fabio Khan MD CONSULTATIONS: None. CHIEF COMPLAINT: Fatigue. HISTORY OF PRESENT ILLNESS: Mr. Reed is a pleasant 78-year-old male with a past medical history of peripheral vascular disease, seizure disorder, hypertension, hyperlipidemia, and prostate cancer status post radical prostatectomy presents with a 2-day history of generalized weakness, fatigue, malaise, urinary incontinence, and fever up to 103 Fahrenheit. States he had one episode of incontinence yesterday. The patient's spouse stated that they began to check his blood pressure last night and noted that it was trending down from his baseline of 110s to 120s systolic over 60s to 70s diastolic. They contacted the patient's primary care physician who recommended that he go to the ER for evaluation. The patient lives in [place] and was initially seen in the [place] [facility]. [facility] ER COURSE: The patient was seen and evaluated by Dr. Geovani John. Routine labs were drawn including blood and urine cultures. EKG was obtained. Chest x- ray was performed. His lowest blood pressure at [place] was 97/56. He received a fluid bolus of normal saline at 30 mL/kg and then was started on IV normal saline 200 an hour. He received cefepime 2 g IV, Tylenol, and ibuprofen. He was then transferred to the [place] ER for further evaluation. [facility] COURSE: The patient was seen and evaluated by Dr. Catie Sunshine. He received his nightly dose of Dilantin 400 mg and continued to have his normal saline infusion run. PAST MEDICAL HISTORY: 1. Adult onset seizures. 2. Prostate cancer. 3. Hypertension. 4. Hyperlipidemia. 5. Peripheral vascular disease. PAST SURGICAL HISTORY: 1. Tonsillectomy. 2. Right femoral endarterectomy. 3. Radical prostatectomy. ALLERGIES: MALTHION. MEDICATIONS: 1. PreserVision eyedrops two drops two times daily. 2. CoQ10 30 mg daily. 3. Biotin 500 mcg daily. 4. Probiotic 10 billion cell daily. 5. Dilantin extended release 400 mg at bedtime. 6. Naprosyn 500 mg b.i.d. 7. Hydrochlorothiazide 25 mg daily. 8. Lisinopril 10 mg twice daily. 9. Metoprolol tartrate 50 mg twice daily. 10. Lipitor 80 mg at bedtime. 11. Pletal 100 mg twice daily. SOCIAL HISTORY: The patient reports drinking several glasses of scotch every day. States his last drink was yesterday evening. He is a former smoker and smoked for over 30 years, but quit back in 1998. Denies illicit drug use. Currently lives at home with his . 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 FAMILY HISTORY: Unremarkable. REVIEW OF SYSTEMS: A 12-point review of systems was performed and was negative except for the pertinent positives or negatives listed in history of present illness. PHYSICAL EXAMINATION: VITAL SIGNS: At this time, blood pressure 109/63, pulse 87, respiratory rate 20 , temperature 98.8, pulse ox 97% on room air. Current weight 90.72 kg. GENERAL: No acute distress. Alert and oriented x4. Well developed, well nourished, appropriately interactive. HEENT: Normocephalic, atraumatic. External ocular movements intact. No scleral icterus or conjunctivitis noted. External ears and nose are grossly normal. Mouth reveals normal dentition, mildly dry, tacky mucous membranes. NECK: Supple without lymphadenopathy or thyromegaly. CARDIOVASCULAR: Normal rate, regular rhythm. Pulses full and equal bilaterally. PULMONARY: Lungs are clear to auscultation bilaterally. Normal effort. No signs of respiratory distress. ABDOMEN: Soft, mildly distended, nontender to palpation. No guarding, rebound , or rigidity noted. No suprapubic pain noted. EXTREMITIES: No cyanosis or edema noted. NEUROLOGIC: No focal deficits. Moves all four limbs equally. MUSCULOSKELETAL: No gross abnormalities or defects. SKIN: Warm, dry, and intact without lesions. PSYCHIATRIC: Mood and affect are appropriate. The patient appears decisional. LABORATORY FINDINGS: CBC; white blood cell count 12.1, hemoglobin 13, hematocrit 37.3, MCV 99, platelets of 145, neutrophils 85%. CMP; sodium 130, potassium 4.0, chloride 92, bicarb 24, BUN 27, creatinine 1.02, EGFR 71, glucose 107, calcium 9.7, total bilirubin 0.4, AST 46, ALT 24, alkaline phosphatase 98. Serum protein 7.1, albumin 3.1, globulin 3.2. Other laboratory data; phenytoin level 11.1, lactic acid 2.5. Urinalysis, color yellow, clarity clear, pH 6.0, specific gravity 1.015, protein 100, glucose negative, ketones negative, blood moderate, nitrite negative, bilirubin negative, urobilinogen 1.0, leukocyte esterase moderate, rbc's 4-6 per high- power field, white blood cells 21 to 50 per high-power field, squamous epithelial 0 to 3 per high-power field, bacteria +1. IMAGING DATA: Reviewed by me. Chest x-ray, one view, shows no acute processes. Report read as cardiomegaly with no acute abnormalities. EKG reviewed by me shows sinus tachycardia with a rate of 120, OR interval 188, QTc interval 412. No obvious ST depressions or elevations. ASSESSMENT AND PLAN: Mr. Reed is a 78-year-old male with a past history of a radical prostatectomy following prostate cancer. He presents with a 2-day history of fever, chills, urinary symptoms. He was found to initially be tachycardic and hypotensive in the ER, which has responded to fluid resuscitation. He is being admitted for treatment of the following conditions. 1. Sepsis secondary to urinary tract infection. Urine culture and blood cultures are pending at this time. We will continue cefepime and add vancomycin given the severity of his sepsis and his history of surgery. Continue IV lactated Ringer at 125 mL an hour. We will adjust fluid rates pending vitals. He is currently hemodynamically stable. 2. Seizure disorder. Continue home Dilantin. Dilantin level at [place] [facility] was within normal limits. 3. Peripheral vascular disease. Continue Pletal. 4. Hypertension. Hold antihypertensives during the acute phase of his illness. We will order a transthoracic echocardiogram as the patient said he was scheduled to have this performed this week in the outpatient setting. There is a need to assess his cardiac function during his acute illness. No acute signs of heart failure at this time. 5. Hyperlipidemia. Continue Lipitor. 6. Peripheral vascular disease, stable. 7. Alcohol use disorder. AMBROSE protocol ordered, monitor. 8. History of tobacco abuse, he is currently not smoking. 9. Acute kidney injury likely secondary to his underlying sepsis. We will continue IV fluid resuscitation and repeat basic metabolic panel in the morning. 10. Elevated lactate, likely due to sepsis trend. Continue fluid resuscitation. 11. Diet, heart healthy. 12. Prophylaxis, fall, SCDs. 13. Code status. Full code. History and physical examination and management of this patient were discussed with Dr. Khan who was in agreement unless otherwise stated in his attestation. Job ID: [id number] MTDD
[2018-06-21] MEDS: Lactated Ringer's 1,000 ML IV SCH ×2 (01:10→07:57)
[2018-06-21] MEDS: Vancomycin HCl 1 GM in Premix Bag 1 BAG IVPB SCH ×2 (01:13→12:32)
[2018-06-21] MEDS: Cefepime 1 GM in Sodium Chloride 0.9% 100 ML IVPB SCH ×2 (05:08→19:02)
[2018-06-21 05:56] LABS: #Lymphocytes 0.5 thou/uL (1.20-3.40); #Monocytes 0.9 thou/uL (0.11-0.59); #Neutrophils 7.9 thou/uL (1.40-6.50); %Eosinophils 0.2 % (0.0-10.0); %Lymphocytes 4.9 % (21.0-51.0); %Monocytes 9.6 % (0.0-10.0); %Neutrophils 85.3 % (42.0-75.0); Hemoglobin 11.3 g/dL (14.0-18.0); Mean Corpuscular HGB CONC 34.9 g/dL (32.0-36.0); Mean Corpuscular Hemoglobin 36.4 pg (27.0-31.0); Mean Platelet Volume 7.9 fL (7.4-10.4); Platelet Count 136 thou/uL (130-400); RBC Distribution Width 12.2 % (11.5-14.5); Red Blood Cell (RBC) Count 3.12 mill/uL (4.70-6.10); White Blood Cell (WBC) Count 9.2 thou/uL (4.8-10.8)
[2018-06-21] MEDS ORDERED: Vancomycin HCl 1.25 GM in Sodium Chloride 0.9% 250 ML 300 ML IVPB SCH (06:00)
[2018-06-21 06:24] LABS: Anion Gap 12 mmol/L (10-20); BUN (Urea Nitrogen) 22 mg/dL (8.4-25.7); Calc. Creatinine Clearance 107 mL/min (70-130); Calcium 8.5 mg/dL (7.8-10.44); Carbon Dioxide 21 mmol/L (23-31); Chloride 99 mmol/L (98-107); Estimated GFR-MDRD Greater than 90; Glucose 119 mg/dL (83-110); Potassium 3.4 mmol/L (3.5-5.1); Sodium 129 mmol/L (136-145)
[2018-06-21] MEDS: Aspirin Chewable 81 MG TAB PO SCH (07:58)
[2018-06-21] MEDS: Cilostazol 100 MG TAB PO SCH ×2 (07:58→16:47)
[2018-06-21] MEDS: Ubidecarenone 50 MG CAP PO SCH (07:58)
[2018-06-21] MEDS ORDERED: Potassium Chloride 20 MEQ TAB PO SCH (08:30)
[2018-06-21] MEDS ORDERED: Non-Formulary Item 1 EACH (Biotin [Biotin] 1,000 MCG) PO SCH (09:00)
[2018-06-21] MEDS: Sodium Chloride 0.9% 1,000 ML IV SCH ×2 (09:08→17:00)
--- NOTE | 2018-06-21 10:37 | PDOC.FM ---
- Subjective Subjective: VANESSA overnight. Pt reports he is feeling better since admission. Otherwise, no complaints. - Objective MAR Reviewed: Yes Vital Signs & Weight: Vital Signs (12 hours) Temp Pulse Resp BP BP Pulse Ox 06/21/18 07:43 98.6 F 105 H 18 126/73 93 L 06/21/18 05:30 99.7 F H 06/21/18 04:00 100.9 F H 111 H 22 H 153/87 H 153/87 H 94 L 06/20/18 23:30 121/73 95 06/20/18 23:00 97.6 F 97 121/73 95 Weight Weight 91.767 kg I&O: 06/20/18 06/21/18 06/22/18 06:59 06:59 06:59 Intake Total 800 Output Total 300 Balance 500 Result Diagrams: 06/21/18 05:08 06/21/18 05:08 Phys Exam - Physical Examination Constitutional: NAD HEENT: PERRLA, sclera anicteric Neck: no nodes, no JVD Respiratory: no wheezing, no rales, no rhonchi, clear to auscultation bilateral Cardiovascular: RRR, no significant murmur, no rub Gastrointestinal: soft, non-tender, no distention, positive bowel sounds Musculoskeletal: no edema, pulses present Neurological: non-focal, moves all 4 limbs Skin: no rash, cap refill <2 seconds Dx/Plan (1) Sepsis Code(s): A41.9 - SEPSIS, UNSPECIFIED ORGANISM Status: Acute (2) Urinary tract infection Status: Acute (3) Hyponatremia Code(s): E87.1 - HYPO-OSMOLALITY AND HYPONATREMIA Status: Acute (4) Seizure disorder Code(s): G40.909 - EPILEPSY, UNSP, NOT INTRACTABLE, WITHOUT STATUS EPILEPTICUS Status: Acute (5) Dyslipidemia Code(s): E78.5 - HYPERLIPIDEMIA, UNSPECIFIED Status: Chronic (6) GERD (gastroesophageal reflux disease) Code(s): K21.9 - GASTRO-ESOPHAGEAL REFLUX DISEASE WITHOUT ESOPHAGITIS Status: Chronic (7) Hypertension Code(s): I10 - ESSENTIAL (PRIMARY) HYPERTENSION Status: Chronic - Plan Plan: 1) Sepsis - cont broad spectrum abx and await cultures - check urine gram stain, consider DC vanc if gram neg only - 2/2 UTI 2) UTI: see 1 3) Seizure disorder: - cont home meds 4) Hyponatremia: - pt on thiazide diuretic - will check urine and serum osmoles as well as urine Na - stable and asymptomatic 5)HTN: hold home meds as pt was hypotensive 6) HLD: home meds Dispo: stable. Cont abx and workup hypoNa. Addendum - Attending - Attending Attestation Date/Time: 06/21/18 2307 I personally evaluated the patient and discussed the management with Dr. Lee. I agree with the History, Examination, Assessment and Plan documented above with any addition or exceptions noted below.
[2018-06-21] MEDS ORDERED: Magnesium 2 GM/50 ML 2 GM in Premix Bag 1 BAG IVPB SCH (16:30)
[2018-06-21] MEDS ORDERED: Atorvastatin Calcium 40 MG TAB PO SCH (21:00)
[2018-06-22] MEDS: Sodium Chloride 0.9% 1,000 ML IV SCH ×2 (00:09→09:28)
[2018-06-22] MEDS: Vancomycin HCl 1 GM in Premix Bag 1 BAG IVPB SCH (00:09)
[2018-06-22] MEDS: Cefepime 1 GM in Sodium Chloride 0.9% 100 ML IVPB SCH (05:40)
[2018-06-22 07:23] LABS: Hemoglobin 10.6 g/dL (14.0-18.0); Mean Corpuscular HGB CONC 35.2 g/dL (32.0-36.0); Mean Corpuscular Hemoglobin 36.4 pg (27.0-31.0); Mean Platelet Volume 7.4 fL (7.4-10.4); Platelet Count 129 thou/uL (130-400); RBC Distribution Width 12.3 % (11.5-14.5); Red Blood Cell (RBC) Count 2.92 mill/uL (4.70-6.10); White Blood Cell (WBC) Count 4.6 thou/uL (4.8-10.8)
[2018-06-22 07:25] LABS: Anion Gap 11 mmol/L (10-20); BUN (Urea Nitrogen) 13 mg/dL (8.4-25.7); Calc. Creatinine Clearance 136 mL/min (70-130); Calcium 8.4 mg/dL (7.8-10.44); Carbon Dioxide 20 mmol/L (23-31); Chloride 102 mmol/L (98-107); Estimated GFR-MDRD Greater than 90; Glucose 110 mg/dL (83-110); Potassium 3.6 mmol/L (3.5-5.1); Sodium 129 mmol/L (136-145)
[2018-06-22] MEDS ORDERED: Lisinopril 10 MG TAB PO SCH (09:00)
[2018-06-22] MEDS ORDERED: Hydrochlorothiazide 25 MG TAB PO SCH (09:00)
[2018-06-22] MEDS ORDERED: Metoprolol Tartrate 50 MG TAB PO SCH (09:00)
[2018-06-22] MEDS: Cilostazol 100 MG TAB PO SCH (09:28)
[2018-06-22] MEDS: Aspirin Chewable 81 MG TAB PO SCH (09:28)
[2018-06-22] MEDS: Ubidecarenone 50 MG CAP PO SCH (09:28)
[2018-06-22 10:01] LABS: Band 11 % (5-11); Eosinophils 2 % (0-10); Lymphocytes 11 % (21-51); MDiff Complete? YES; Macrocytosis SLIGHT = 6-15 cells (100X) (0-5/hpf); Monocytes 17 % (0-10); Neutrophil 58 % (42-75); Platelet Morphology Comment Appears Adequate; Polychromasia SLIGHT = 2-3 cells (100X) (0-2/hpf); Reactive Lymphocytes 1 % (0-10)
--- NOTE | 2018-06-22 11:07 | PDOC.FM ---
- Subjective Subjective: VANESSA overnight. Pt reports he feels better. No NVDC. No dysuria. No CVA tenderness. No fever. - Objective Vital Signs & Weight: Vital Signs (12 hours) Temp Pulse Resp BP BP BP Pulse Ox 06/22/18 09:35 163/75 H 06/22/18 07:44 98.4 F 90 18 163/75 H 94 L 06/22/18 03:59 135/74 06/22/18 00:14 99.3 F 106 H 18 135/74 93 L Weight Weight 91.767 kg I&O: 06/21/18 06/22/18 06/23/18 06:59 06:59 06:59 Intake Total 4570 Output Total 1050 Balance 3520 Result Diagrams: 06/22/18 06:30 06/22/18 06:30 Phys Exam - Physical Examination Constitutional: NAD HEENT: PERRLA, sclera anicteric Neck: no nodes, no JVD Respiratory: no wheezing, no rales, no rhonchi, clear to auscultation bilateral Cardiovascular: RRR, no significant murmur, no rub Gastrointestinal: soft, non-tender, no distention, positive bowel sounds Musculoskeletal: no edema, pulses present Neurological: non-focal, moves all 4 limbs Skin: no rash, cap refill <2 seconds Dx/Plan (1) Sepsis Code(s): A41.9 - SEPSIS, UNSPECIFIED ORGANISM Status: Acute (2) Urinary tract infection Status: Acute (3) Hyponatremia Code(s): E87.1 - HYPO-OSMOLALITY AND HYPONATREMIA Status: Acute (4) Seizure disorder Code(s): G40.909 - EPILEPSY, UNSP, NOT INTRACTABLE, WITHOUT STATUS EPILEPTICUS Status: Acute (5) Dyslipidemia Code(s): E78.5 - HYPERLIPIDEMIA, UNSPECIFIED Status: Chronic (6) GERD (gastroesophageal reflux disease) Code(s): K21.9 - GASTRO-ESOPHAGEAL REFLUX DISEASE WITHOUT ESOPHAGITIS Status: Chronic (7) Hypertension Code(s): I10 - ESSENTIAL (PRIMARY) HYPERTENSION Status: Chronic - Plan Plan: 1) Sepsis - resolved 2) UTI: E coli preliminary >100k - rx oral omnicef and stable for DC to home 3) Seizure disorder: - cont home meds 4) Hyponatremia: - pt on thiazide diuretic - DC thiazide and instructed to f/u with PCP provider 5)HTN: resume home meds DC to home 6) HLD: home meds Dispo: stable. Switch to oral ABX and DC to home.
[2018-06-22 16:13] VITALS: BP 146/83; TEMP 98.1
[2018-06-22] MEDS ORDERED: Cefdinir 300 MG CAP PO SCH (21:00)
== END 2018-06-22 15:44 | disposition home or self-care (01) | DRG 872 ==
LOC: ERS 20:36 → T4-A 20:53
PROVIDERS: ADMIT Emergency Medicine; ATTEND Emergency Medicine
DX: A41.9 Sepsis, unspecified organism (principal); N39.0 Urinary tract infection, site not specified; N17.9 Acute kidney failure, unspecified; E87.1 Hypo-osmolality and hyponatremia; K21.9 Gastro-esophageal reflux disease without esophagitis; I73.9 Peripheral vascular disease, unspecified; G40.909 Epilepsy, unspecified, not intractable, without status epilepticus; I10 Essential (primary) hypertension; E78.5 Hyperlipidemia, unspecified; Z85.46 Personal history of malignant neoplasm of prostate; Z90.79 Acquired absence of other genital organ(s); Z90.89 Acquired absence of other organs; Z88.8 Allergy status to other drugs, medicaments and biological substances; Z87.891 Personal history of nicotine dependence
CPT/HCPCS: 36415; 80048; 80053; 82248; 82378; 83605; 83615; 83735; 83930; 83935; 84100; 84300; 84550; 85025; 93306; 96360; 96366; 96375; 96413; 96415; 96417; J0640; J0692; J1100; J2405; J3370; J3475; J3490; J7050; J7070; J9035; J9263

== ENCOUNTER 2018-07-25 11:57 | Outpatient (CLI) | payer MEDICARE ==
[~2018-07-25 11:57] MED LIST: Gadobenate Dimeglumine 529 MG/1 ML (20ML VIAL) ONE
[2018-07-25 12:35] LABS: Estimated GFR-MDRD - POC Greater than 90
--- NOTE | 2018-07-25 13:18 | MRI ---
Brain MRI with and without contrast: 07/25/2018 COMPARISON: 01/02/2017 HISTORY: 2 seizures over the past year, other generalized epilepsy TECHNIQUE: Multiplanar multisequence MR imaging of the brain is obtained with and without contrast us ing seizure protocol. FINDINGS: The diffusion weighted imaging demonstrates no evidence for acute infarction. The gradient echo imaging demonstrates no evidence for intracranial hemorrhage. There is periventricular T2 and FLAIR hyperintensity, evidence of mild small vessel disease. There is moderate cerebral volume loss with associated prominence of the CSF containing spaces. per the seizure protocol, coronal gradient echo and T1 weighted imaging obtained through the temporal lobes. The hippocampi appear symmetric in size, structure, and signal intensity. Arterial flow voids at the axial level of the skull base appear grossly unremarkable on the T2-weight ed imaging. The postcontrast imaging demonstrates no abnormal enhancement within the brain parenchyma. IMPRESSION: Chronic findings as detailed above. No acute findings are seen.
== END 2018-07-25 11:58 | disposition home or self-care (01) ==
LOC: SCSMRI 11:57
PROVIDERS: ATTEND Psychiatry & Neurology Neurology
DX: G40.409 Other generalized epilepsy and epileptic syndromes, not intractable, without status epilepticus (principal); G45.9 Transient cerebral ischemic attack, unspecified
CPT/HCPCS: 70553; 82565; A9577

== ENCOUNTER 2018-09-16 07:56 | Inpatient (IN) | payer MEDICARE ==
[2018-09-16 08:22] LABS: #Monocytes 0.7 thou/uL (0.11-0.59); #Neutrophils 7.5 thou/uL (1.40-6.50); %Basophils 0.5 % (0.0-1.0); %Eosinophils 0.4 % (0.0-10.0); %Lymphocytes 10.7 % (21.0-51.0); %Monocytes 7.9 % (0.0-10.0); %Neutrophils 80.6 % (42.0-75.0); Hemoglobin 13.9 g/dL (14.0-18.0); Mean Corpuscular HGB CONC 34.8 g/dL (32.0-36.0); Mean Corpuscular Hemoglobin 35.3 pg (27.0-31.0); Mean Platelet Volume 7.4 fL (7.4-10.4); Platelet Count 158 thou/uL (130-400); RBC Distribution Width 12.3 % (11.5-14.5); Red Blood Cell (RBC) Count 3.93 mill/uL (4.70-6.10); White Blood Cell (WBC) Count 9.3 thou/uL (4.8-10.8)
--- NOTE | 2018-09-16 09:57 | RAD ---
Exam: Chest one view HISTORY:Chest one view Comparison: 06/20/2018 FINDINGS: Cardiac silhouette:Normal heart size. Atherosclerosis of the aorta. Pulmonary vessels: Normal Costophrenic angles: Clear LUNGS: Right basilar opacities which may represent atelectasis or posttraumatic change. Small left-si ded pneumothorax. Left rib fractures are difficult to appreciate. Extensive subcutaneous emphysema in the left chest wall. No significant cardiomediastinal shift. Pneumothorax: None Osseous abnormalities: Known left rib fractures are difficult to appreciate. IMPRESSION: Small left apical pneumothorax. Posttraumatic change left ribs are difficult to appreciat e radiographically. There is subcutaneous emphysema in the left chest wall.
[2018-09-16] MEDS ORDERED: Dextrose 50% Abboject 50 ML SYRINGE SLOW IVP PRN (10:44)
[2018-09-16] MEDS ORDERED: Ondansetron PF 4 MG/2 ML Vial IVP PRN (10:44)
[2018-09-16] MEDS ORDERED: Ondansetron ODT 4 MG TAB PO PRN (10:44)
[2018-09-16] MEDS ORDERED: Dextrose 5% in Water 1,000 ML IV PRN (10:44)
[2018-09-16] MEDS ORDERED: hydrALAZINE 20 MG/ML VIAL SLOW IVP PRN (10:44)
[2018-09-16] MEDS ORDERED: Cyclobenzaprine 10 MG TAB PO PRN (11:30)
[2018-09-16] MEDS: traMADol HCl 50 MG TAB PO SCH ×2 (12:09→17:43)
[2018-09-16] MEDS: Acetaminophen 650 MG Suppository PR SCH ×2 (12:09→17:43)
[2018-09-16] MEDS: Rib Fracture Protocol PO SCH (12:13)
[2018-09-16] MEDS: Acetaminophen 500 MG TAB PO SCH ×2 (12:14→17:41)
[2018-09-16] MEDS: Ketorolac Tromethamine 30 MG/ML VIAL IVP SCH ×2 (12:15→17:37)
[2018-09-16 12:56] VITALS: BMI 27.8
[2018-09-16 13:24] LABS: Bacteria/HPF 3+ HPF (None Seen); Bilirubin Negative (Negative); Blood, Urine Trace (Negative); Clarity Turbid (Clear); Glucose, Urine (Dipstick) Normal (Negative); Leukocyte 500 Leu/uL (Negative); Nitrite Negative (Negative); Protein, Urine (Dipstick) 10 mg/dL (Neg-Trace); Squamous Epithelial 0-3 HPF (0-3); Urobilinogen Normal mg/dL (Less than 2); WBC/HPF Greater than 50 HPF (0-3)
[2018-09-16 13:26] LABS: Urine Culture Reflex Yes Yes
--- NOTE | 2018-09-16 13:52 | HP ---
CHIEF COMPLAINT: Fall. HISTORY: A 78-year-old male, who has becoming more and more unsteady on his feet, and evidently last night, he got up and he fell into a pocket door, lacerated his scalp, hit his chest. At first, he was not really complaining of anything, but then later in the evening, he started complaining of progressive rib pain and so his brought him to the hospital. PAST MEDICAL HISTORY: Significant for peripheral vascular disease, seizure disorder, coronary artery disease, prostate hypertrophy, daily alcohol, recent urinary tract infection, hypertension, and hyperlipidemia. PAST SURGICAL HISTORY: He has had hernia repairs. He has also had tonsilloadenoidectomy. MEDICATIONS: Include; 1. Aspirin. 2. Plavix. 3. Metoprolol. 4. Lisinopril. 5. Atorvastatin. 6. CoQ10. 7. Dilantin. 8. Omeprazole. 9. Vitamin D. 10. Nitroglycerin. 11. Folic acid. 12. B12. ALLERGIES: HE HAS NO KNOWN DRUG ALLERGIES. FAMILY HISTORY: Family history of heart disease. 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 No tobacco. Heavy alcohol. PHYSICAL EXAMINATION: VITAL SIGNS: Blood pressure 135/69, pulse 89, temperature 97.2, respirations 16. GENERAL: Elderly male, a little bit confused. HEENT: He has a dry scab on the top of his scalp, not actively bleeding. His pupils are equal, round, and reactive to light at 3 mm. NECK: Nontender. Trachea, midline. LUNGS: Clear. He is tender on the left chest wall. ABDOMEN: Obese, soft, nontender. BACK: Nontender. EXTREMITIES: He has poor pulses in his groins and lower extremities. LABORATORY DATA: White count 9.3, hemoglobin and hematocrit are 13 and 39, platelet count 158. His troponin was 0.02. Chest x-ray shows a small left apical pneumo with several rib fractures. CT scan of the chest showed 3rd rib fracture, small left pneumo. CT scan of the cervical spine, no fracture, just some degenerative disease. Brain CT, no intracranial abnormality. ASSESSMENT: Multiple rib fractures, fall, with small pneumo. PLAN: Serial chest x-rays and exams, oxygen. Job ID: [id number]
[2018-09-16] MEDS: Gabapentin 100 MG CAP PO SCH ×2 (14:34→21:59)
[2018-09-16] MEDS: Ibuprofen 600 MG TAB PO SCH ×2 (14:34→21:59)
[2018-09-16] MEDS ORDERED: Sodium Chloride 0.9% 500 ML IV SCH (18:00)
[2018-09-16] MEDS ORDERED: Nitroglycerin 0.4 MG TAB (25 Tab Bottle) SL PRN (19:01)
--- NOTE | 2018-09-16 19:58 | HP ---
TRAUMA ACTIVATION: Level 2. TRAUMA SURGEON: Dr. Grace. HISTORY OF PRESENT ILLNESS: This is a 78-year-old male, who presented to [facility] as a transfer from [facility] status post fall. Per the patient and family at bedside, the patient fell approximately 7 p.m. in the evening prior. This morning, the patient was having left-sided chest pain associated with shortness of breath and requested that his take him to the emergency room. He was seen and evaluated by the ER in [place] and was found to have multiple left-sided rib fractures, left ribs 3 through 7; a small left pneumothorax, approximately 15%; and a left pulmonary contusion. He was transferred to [facility] for further evaluation and care. Upon my evaluation, the patient states that his pain has been relatively well controlled. His saturations were within normal limits on room air. He reports that he fell after he was attempting to ambulate from the kitchen to the bathroom when he became lightheaded and dizzy. He denies chest pain or shortness of breath. He denies loss of consciousness. The patient does have a seizure history. However, he and both deny seizure-like activity. He did strike the top of his head when he fell. He is on dual anti-platelet therapy. CT head was negative. ALLERGIES: NONE. HOME MEDICATIONS: Include; 1. Aspirin 81 mg daily. 2. Cilostazol 100 mg b.i.d. 3. Metoprolol 50 mg b.i.d. 4. Lisinopril 10 mg b.i.d. 5. Atorvastatin 80 mg. 6. Dilantin 400 mg at bedtime. 7. Omeprazole 20 mg. 8. Nitro 0.4 mg sublingual p.r.n. 9. Folic acid. 10. Vitamin B12. 11. Multivitamin. 12. Biotin. 13. CoQ10. 14. Vitamin D3 supplements. 15. Naproxen 500 mg p.r.n. MEDICAL HISTORY: Significant for seizures, coronary artery disease, hypertension, prostate cancer, history of umbilical hernia, hyperlipidemia, peripheral vascular disease. SURGICAL HISTORY: Tonsillectomy, PTCA, prostatectomy, umbilical hernia repair, right iliofemoral bypass, possible axillofemoral bypass planned with Cardiovascular Surgery. 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 He is a current daily drinker, 2 to 3 scotch drinks daily. Remote history of smoking. REVIEW OF SYSTEMS: A 10-point review of systems is performed and negative except as indicated in the HPI. PHYSICAL EXAMINATION: VITAL SIGNS: Blood pressure 148/83, pulse 86, respirations 18, O2 saturation 96% on room air, and temperature 98.8. GENERAL: Elderly appearing male, in no acute distress, sitting in bed. HEAD: There is a 2.5 cm scalp abrasion and skin tear on the top of his scalp. EYES: Pupils are PERRL. Extraocular movements are intact. NECK: Supple. Trachea is midline. There is no midline tenderness to palpation. CHEST: Normal work of breathing, symmetric rise. Appears atraumatic. There is crepitus and tenderness to palpation of the left chest. Lungs are clear to auscultation bilaterally. CARDIOVASCULAR: Regular rate and rhythm. No obvious murmurs, rubs, or gallops. No lower extremity edema. ABDOMEN: Rotund, soft, nontender, nondistended. Bowel sounds are positive. Appears atraumatic. MUSCULOSKELETAL: Back exam within normal limits. Pelvis is stable. Moves all extremities x4 and range of motion within normal limits for the patient. NEUROLOGIC: GCS is 15, although he does have trouble with word finding. No focal deficit is noted. LABORATORY FINDINGS: WBC 9.3, hemoglobin 13.9, hematocrit 39.8, platelet count 158. Sodium 133, potassium 4.2, chloride 97, carbon dioxide 24, BUN 18, creatinine 0.80, glucose 112. LFTs within normal limits. RADIOGRAPHIC FINDINGS: CT brain with no evidence of acute intracranial abnormality. CT of the C-spine was negative for acute bony fracture or dislocation, but did show some degenerative disk disease. CT of the chest read as pneumothorax less than 15%, multiple left-sided rib fractures, and subcutaneous emphysema as well as pulmonary contusion. Chest x-ray with small apical pneumothorax, otherwise, no acute cardiopulmonary process. ASSESSMENT: 1. Status post ground level fall. 2. Acute traumatic pain. 3. Left rib fractures 3 through 7. 4. Pulmonary contusion. 5. Small left pneumothorax, less than 15%. 6. Current daily drinker. 7. History of seizure disorder. 8. Hyponatremia, likely secondary to potomania. 9. Chronic weakness and debility, worsening. 10. History of peripheral vascular disease, on dual anti-platelet therapy. 11. History of hypertension. PLAN: Admit to Trauma Services for observation, pain control. PT, OT, incentive spirometry, and pulmonary toileting. Pain control with rib fracture protocol via p.o. pathway. The patient has been having steady decline in strength and mobility, this is the 2nd fall that he sustained this month. I have recommended inpatient rehab screen as Cardiovascular Surgery has recommended further surgery for his lower extremity claudication and weakness. However, they also recommended that he undergo intensive physical therapy prior to surgery. A.m. chest x-ray and labs. states that she is unsure how much Dilantin the patient took yesterday. We will check Dilantin level. He also has had a recent hospitalization for urinary tract infection and reports that he has demonstrated increased confusion. We will check UA. Given the patient's reported presyncopal symptoms, we will also check orthostatic vital signs. Plan for admission was discussed with the patient and family at bedside and all questions were answered prior to this dictation. Trauma attending has been notified of admission. Job ID: [id number]
[2018-09-16] MEDS ORDERED: Lisinopril 10 MG TAB PO SCH (21:00)
[2018-09-16] MEDS: Oxazepam 10 MG CAP PO SCH (21:51)
[2018-09-16] MEDS: Senokot S 8.6-50 MG TAB PO SCH (21:58)
[2018-09-16] MEDS: Lisinopril 10 MG TAB PO SCH (22:00)
[2018-09-16] MEDS: Atorvastatin Calcium 40 MG TAB PO SCH (22:01)
[2018-09-16] MEDS: Famotidine 20 MG TAB PO SCH (22:01)
[2018-09-16] MEDS: Nitrofurantoin Monohyd/M-Cryst 100 MG CAP PO SCH (22:01)
[2018-09-16] MEDS: Ketotifen Fumarate 0.025% Ophth Soln 5 ml Bottle EA EYE SCH (22:01)
[2018-09-17] MEDS: Ketorolac Tromethamine 30 MG/ML VIAL IVP SCH ×2 (00:58→05:44)
[2018-09-17] MEDS: Acetaminophen 500 MG TAB PO SCH ×4 (01:02→17:40)
[2018-09-17] MEDS: traMADol HCl 50 MG TAB PO SCH ×2 (01:15→05:44)
[2018-09-17] MEDS: Acetaminophen 650 MG Suppository PR SCH ×2 (01:15→05:43)
--- NOTE | 2018-09-17 01:19 | PRG ---
DATE OF SERVICE: 09/16/2018 SUBJECTIVE: This is a 78-year-old gentleman, status post ground level fall, who sustained multiple left rib fractures and a small left pneumothorax. It was informed by the patient's nurse that the patient was becoming increasingly agitated and anxious. The patient was also attempting to get out of bed. On exam, the patient is awake, alert, oriented to person only. The patient's is at bedside and states that she has never seen him this way and the language he is using was very surprising to her. The patient follows all commands at this time. The patient reoriented to place and time. The patient denies any pain. The patient is able to use his incentive spirometer, but gets frustrated easily. The patient mentions that we must be playing a joke on him. Again, the patient reoriented to why he is in the hospital. OBJECTIVE: VITAL SIGNS: 98% on 2 L nasal cannula, temperature 98.4, pulse 90, blood pressure 138/82, and respirations 16. GENERAL: The patient is awake, alert, oriented to person only. The patient follows all simple commands. GCS is 14. HEENT: Pupils are equal bilateral. Mucous membranes are moist. Extraocular movements intact. Trachea is midline. CHEST: Normal work of breathing, chest rise is symmetrical. Bilateral breath sounds clear with no wheezing, rales, or rhonchi. Breathing is regular and nonlabored. CARDIOVASCULAR: Regular rate and rhythm, no obvious murmurs. ABDOMEN: Round, soft, nontender, mildly distended. Bowel sounds positive, the patient is passing gas. MUSCULOSKELETAL: The patient moves all extremities x4. Strength is 5/5 and equal in all extremities. 2+ distal pulses in all extremities. NEUROLOGIC: GCS is 14, cranial nerves intact, no focal deficits. ASSESSMENT: 1. Status post ground level fall. 2. Acute traumatic pain. 3. Left rib fractures, 3 through 7. 4. Pulmonary contusion. 5. Small left pneumothorax, less than 15%. 6. Current daily drinker. 7. History of seizure disorder. 8. History of hypertension. 9. Hospital delirium. PLAN: Continue supportive care. We will add Serax scheduled as the patient is a daily drinker. Continue pain control. We will encourage ambulation and physical and occupational therapy. Job ID: [id number]
[2018-09-17] MEDS: Ibuprofen 600 MG TAB PO SCH ×3 (05:30→22:14)
[2018-09-17] MEDS: Oxazepam 10 MG CAP PO SCH (05:30)
[2018-09-17 06:10] LABS: #Eosinphils 0.1 thou/uL (0.0-0.7); #Lymphocytes 1.1 thou/uL (1.20-3.40); #Monocytes 0.7 thou/uL (0.11-0.59); #Neutrophils 5.5 thou/uL (1.40-6.50); %Basophils 0.3 % (0.0-1.0); %Eosinophils 1.9 % (0.0-10.0); %Lymphocytes 14.4 % (21.0-51.0); %Monocytes 9.1 % (0.0-10.0); %Neutrophils 74.2 % (42.0-75.0); Mean Corpuscular HGB CONC 34.8 g/dL (32.0-36.0); Mean Corpuscular Hemoglobin 35.5 pg (27.0-31.0); Mean Platelet Volume 7.7 fL (7.4-10.4); Platelet Count 147 thou/uL (130-400); RBC Distribution Width 12.3 % (11.5-14.5); Red Blood Cell (RBC) Count 3.67 mill/uL (4.70-6.10); White Blood Cell (WBC) Count 7.4 thou/uL (4.8-10.8)
[2018-09-17 06:32] LABS: Anion Gap 12 mmol/L (10-20); BUN (Urea Nitrogen) 16 mg/dL (8.4-25.7); Calc. Creatinine Clearance 110 mL/min (70-130); Calcium 9.1 mg/dL (7.8-10.44); Carbon Dioxide 23 mmol/L (23-31); Chloride 101 mmol/L (98-107); Estimated GFR-MDRD Greater than 90; Glucose 105 mg/dL (83-110); Magnesium 1.7 mg/dL (1.6-2.6); Phosphorus 3.7 mg/dL (2.3-4.7); Potassium 3.8 mmol/L (3.5-5.1); Sodium 132 mmol/L (136-145)
[2018-09-17] MEDS ORDERED: Potassium Chloride 40 MEQ in Premix Bag 1 BAG IVPB SCH (08:00)
[2018-09-17] MEDS ORDERED: Magnesium Sulfate 2 GM in Sodium Chloride 0.9% 100 ML IVPB SCH (08:00)
[2018-09-17] MEDS ORDERED: Magnesium 2 GM/50 ML 2 GM in Premix Bag 1 BAG IVPB SCH (08:15)
[2018-09-17] MEDS ORDERED: Enoxaparin Sodium 40 MG/0.4 ML SYRINGE SC SCH (09:00)
[2018-09-17] MEDS ORDERED: Enoxaparin Sodium 30 MG/0.3 ML SYRINGE SC SCH (09:00)
[2018-09-17] MEDS ORDERED: Polyethylene Glycol 3350 17 GM Packet PO SCH (09:00)
[2018-09-17] MEDS ORDERED: traMADol HCl 50 MG TAB PO PRN (09:48)
--- NOTE | 2018-09-17 10:02 | RAD ---
SINGLE VIEW CHEST: Date: 09/17/18 COMPARISON: 09/16/18. HISTORY: Rib fractures with pneumothorax. FINDINGS: Single view of the chest shows normal sized cardiomediastinal silhouette. Air is seen along the left chest wall. There are left-sided rib fractures. No obvious pneumothorax is seen on this examination. No pleural effusion is seen. IMPRESSION: Left rib fractures without visualization of the previously seen pneumothorax. POS: [facility]
[2018-09-17] MEDS: Potassium Chloride 20 MEQ in Premix Bag 1 BAG IVPB SCH ×2 (10:17→17:32)
[2018-09-17] MEDS: Ubidecarenone 50 MG CAP PO SCH (10:18)
[2018-09-17] MEDS: Multivit, Therapeutic 1 TAB PO SCH (10:18)
[2018-09-17] MEDS: Cyanocobalamin (Vitamin B-12) 1,000 MCG TAB PO SCH (10:18)
[2018-09-17] MEDS: Famotidine 20 MG TAB PO SCH ×2 (10:19→22:15)
[2018-09-17] MEDS: Nitrofurantoin Monohyd/M-Cryst 100 MG CAP PO SCH ×2 (10:19→22:14)
[2018-09-17] MEDS: Folic Acid 1 MG TAB PO SCH (10:19)
[2018-09-17] MEDS: Lisinopril 10 MG TAB PO SCH ×2 (10:19→22:14)
[2018-09-17] MEDS: Gabapentin 100 MG CAP PO SCH ×3 (10:19→22:15)
[2018-09-17] MEDS: Senokot S 8.6-50 MG TAB PO SCH ×2 (10:19→22:19)
[2018-09-17] MEDS: Ketotifen Fumarate 0.025% Ophth Soln 5 ml Bottle EA EYE SCH ×2 (10:21→22:12)
[2018-09-17] MEDS: Rib Fracture Protocol PO SCH (11:30)
--- NOTE | 2018-09-17 11:32 | PRG ---
DATE OF SERVICE: 09/17/2018 SUBJECTIVE: This is a 78-year-old male, hospital day 2, status post ground level fall resulting in multiple rib fractures, left pneumothorax and scalp abrasion/skin tear. Overnight, the patient became extremely combative and agitated. The patient has a known history of daily alcohol use, therefore, Serax was initiated. Upon evaluation this morning, the patient is resting in bed, sleeping. He is rather drowsy. at bedside is very concerned about decline in the patient's mental status. She reports that the last time his behavior was similar to this, he had seizures. There has been no seizure activity witnessed by hospital staff or spouse at this time. OBJECTIVE: VITAL SIGNS: Temperature 97.7, pulse 71, respirations 20, O2 saturation 92% on room air, blood pressure 169/82. GENERAL: Elderly appearing male, in no acute distress, resting in bed. Eyes closed. PULMONARY: Normal work of breathing. Symmetric rise. CARDIOVASCULAR: Regular rate and rhythm. GI: Abdomen is soft, nontender, nondistended. MUSCULOSKELETAL: Moves all extremities x4. NEURO: There is no focal deficit noted. The patient is oriented to self and time, somewhat oriented to situation and place. LABORATORY FINDINGS: WBC 7.4, hemoglobin 13.0, hematocrit 37.5, platelet count 147. Sodium 132, potassium 3.8, chloride 101, carbon dioxide 23, BUN 16, creatinine 0.69, glucose 105, phosphorus 3.7, magnesium 1.7. Urinalysis performed yesterday was significant for 500 leukocyte esterase, rbc's 4 to 6, and wbc greater than 50, 3+ bacteria. Preliminary urine culture is presumptive E. coli. No sensitivities available. Chest x-ray this morning demonstrated left-sided rib fractures without evidence of residual pneumothorax, subcutaneous emphysema. Dilantin less than 20. ASSESSMENT: 1. Status post ground level fall. 2. Acute traumatic pain. 3. Left rib fractures 3 through 7. 4. Pulmonary contusion. 5. Small left pneumothorax, improving. 6. Daily alcohol use. 7. History of seizure disorder on Dilantin. 8. Hyponatremia, chronic and at baseline. 9. Escherichia coli urinary tract infection, present on admission. 10. Chronic weakness and debility, worsening. 11. Agitation and delirium. 12. History of peripheral vascular disease on dual anti-platelet therapy. 13. History of hypertension. PLAN: A.m. chest x-ray. PT and OT evaluation. Inpatient rehab has been consulted given the patient's current difficulties with mobility and deconditioning. Speech Therapy evaluation for cognition. Check prolactin level. Resume Dilantin now that his levels have fallen below 20. Empiric antibiotics for UTI, follow culture data. Dual anti-platelet therapy to be continued, no Lovenox per discussion with Dr. Aguirre. Reconcile home medications. Decrease Serax to b.i.d. given somnolence. Hold narcotic pain medication and Flexeril. Continue NSAIDs and Tylenol. Plan of care was discussed with the patient and at bedside. All questions were answered prior to this dictation. The patient was seen and evaluated Dr. Aguirre. Job ID: [id number]
[2018-09-17] MEDS ORDERED: Potassium Chloride 20 MEQ TAB PO SCH (16:45)
[2018-09-17] MEDS: Cilostazol 100 MG TAB PO SCH (17:40)
[2018-09-17] MEDS ORDERED: Oxazepam 10 MG CAP PO SCH (21:00)
[2018-09-17] MEDS: Atorvastatin Calcium 40 MG TAB PO SCH (22:13)
[2018-09-18] MEDS ORDERED: Polyethylene Glycol 3350 17 GM Packet PO PRN (00:25)
[2018-09-18] MEDS ORDERED: Senokot S 8.6-50 MG TAB PO PRN (00:25)
--- NOTE | 2018-09-18 03:25 | PRG ---
DATE OF SERVICE: 09/17/2018 SUBJECTIVE: The patient remains on the surgical floor, status post ground level fall, resulting in multiple rib fractures and left pneumothorax. The patient also sustained a scalp abrasion and skin tear. The patient has had several episodes of diarrhea today. The patient is currently resting comfortably. OBJECTIVE: VITAL SIGNS: Stable. The patient remains afebrile. GENERAL: Elderly male, resting comfortably in bed, no acute distress. PULMONARY: Normal work of breathing, symmetric rise. IMPRESSION: 1. Status post ground level fall. 2. Acute traumatic pain. 3. Left rib fractures, 3 through 7. 4. Pulmonary contusion. 5. Small left pneumothorax, improving. 6. Daily alcohol use. 7. History of seizure disorder, on Dilantin. 8. Urinary tract infection present on admission. 9. Agitation and delirium. 10. History of hypertension. 11. History of peripheral vascular disease, on dual anti-platelet therapy. PLAN: Continue PT/OT. Continue pulmonary toilet and encourage use of incentive spirometer. Continue supportive care. The patient is pending rehab screen. Job ID: [id number]
[2018-09-18] MEDS: Acetaminophen 500 MG TAB PO SCH ×4 (03:27→18:58)
[2018-09-18 04:42] LABS: #Eosinphils 0.2 thou/uL (0.0-0.7); #Lymphocytes 0.9 thou/uL (1.20-3.40); #Monocytes 0.6 thou/uL (0.11-0.59); #Neutrophils 8.7 thou/uL (1.40-6.50); %Basophils 0.4 % (0.0-1.0); %Eosinophils 1.9 % (0.0-10.0); %Lymphocytes 8.5 % (21.0-51.0); %Monocytes 5.9 % (0.0-10.0); %Neutrophils 83.4 % (42.0-75.0); Hemoglobin 13.6 g/dL (14.0-18.0); Mean Corpuscular HGB CONC 33.2 g/dL (32.0-36.0); Mean Corpuscular Hemoglobin 34.6 pg (27.0-31.0); Mean Platelet Volume 7.6 fL (7.4-10.4); Platelet Count 156 thou/uL (130-400); RBC Distribution Width 12.4 % (11.5-14.5); Red Blood Cell (RBC) Count 3.92 mill/uL (4.70-6.10); White Blood Cell (WBC) Count 10.4 thou/uL (4.8-10.8)
[2018-09-18 04:59] LABS: Anion Gap 11 mmol/L (10-20); BUN (Urea Nitrogen) 18 mg/dL (8.4-25.7); Calc. Creatinine Clearance 94 mL/min (70-130); Calcium 9.3 mg/dL (7.8-10.44); Carbon Dioxide 23 mmol/L (23-31); Chloride 103 mmol/L (98-107); Estimated GFR-MDRD Greater than 90; Glucose 127 mg/dL (83-110); Phosphorus 3.5 mg/dL (2.3-4.7); Potassium 3.9 mmol/L (3.5-5.1); Sodium 133 mmol/L (136-145)
[2018-09-18] MEDS: Ibuprofen 600 MG TAB PO SCH ×4 (05:45→22:50)
[2018-09-18] MEDS: Famotidine 20 MG TAB PO SCH ×2 (10:10→20:53)
[2018-09-18] MEDS: Oxazepam 10 MG CAP PO SCH ×3 (10:10→20:54)
[2018-09-18] MEDS: Gabapentin 100 MG CAP PO SCH ×3 (10:10→20:53)
[2018-09-18] MEDS: Nitrofurantoin Monohyd/M-Cryst 100 MG CAP PO SCH ×2 (10:11→20:54)
[2018-09-18] MEDS: Multivit, Therapeutic 1 TAB PO SCH (10:11)
[2018-09-18] MEDS: Ubidecarenone 50 MG CAP PO SCH (10:12)
[2018-09-18] MEDS: Cilostazol 100 MG TAB PO SCH ×2 (10:12→15:46)
[2018-09-18] MEDS: Folic Acid 1 MG TAB PO SCH (10:12)
[2018-09-18] MEDS: Lisinopril 10 MG TAB PO SCH ×2 (10:13→23:13)
[2018-09-18] MEDS: Cyanocobalamin (Vitamin B-12) 1,000 MCG TAB PO SCH (10:13)
[2018-09-18] MEDS: Ketotifen Fumarate 0.025% Ophth Soln 5 ml Bottle EA EYE SCH ×2 (10:13→20:53)
[2018-09-18] MEDS: Aspirin Chewable 81 MG TAB PO SCH (10:13)
[2018-09-18] MEDS: Rib Fracture Protocol PO SCH (10:14)
--- NOTE | 2018-09-18 11:33 | RAD ---
XR Chest 1 View Portable HISTORY: Rib fractures, pneumothorax COMPARISON: Previous day FINDINGS: The heart size stable. Subcutaneous emphysema in the left lateral chest wall is again seen. Left-sided rib fractures are redemonstrated. No definite pneumothorax is seen.
[2018-09-18] MEDS: Atorvastatin Calcium 40 MG TAB PO SCH (20:54)
[2018-09-18] MEDS ORDERED: Cyclobenzaprine 10 MG TAB PO PRN (23:37)
[2018-09-19] MEDS: Acetaminophen 500 MG TAB PO SCH ×4 (00:20→12:55)
[2018-09-19] MEDS: Ibuprofen 600 MG TAB PO SCH ×3 (00:31→12:58)
[2018-09-19] MEDS ORDERED: Melatonin 3 MG TAB PO PRN (01:57)
--- NOTE | 2018-09-19 02:41 | PRG ---
DATE OF SERVICE: 09/19/2018 SUBJECTIVE: The patient is currently on surgical floor. He is hospital day 3 status post ground level fall, which he sustained fractures to his left ribs numbers 3 through 7 and had a small pneumothorax. The patient has not required a chest tube. His chest x-ray by report continues to improve. Pain control has improved with adjustment of pain medication. He is tolerating a diet. He has been working with Physical and Occupational Therapy and he is currently awaiting placement decision. OBJECTIVE: VITAL SIGNS: Stable. The patient is afebrile. GENERAL: He is resting comfortably, seated in a chair beside his bed. He is awake, conversant, responsive, and appropriate. He is able to get to 1000 on his incentive spirometry. LUNGS: Clear to auscultation with moderate to good inspiratory and expiratory effort. HEART: Regular rate and rhythm. ABDOMEN: Soft, slightly distended with normal bowel sounds. The patient does have bowel function reported. ASSESSMENT AND PLAN: 1. Status post ground level fall. 2. Fractures of left ribs 3 through 7. 3. Pulmonary contusion. 4. Small left pneumothorax, resolved. Plan will be to continue supportive care. Encourage physical and occupational therapy and await placement decision. Job ID: [id number]
[2018-09-19] MEDS: Ketotifen Fumarate 0.025% Ophth Soln 5 ml Bottle EA EYE SCH (08:47)
[2018-09-19] MEDS: Nitrofurantoin Monohyd/M-Cryst 100 MG CAP PO SCH (08:48)
[2018-09-19] MEDS: Cilostazol 100 MG TAB PO SCH ×2 (08:48→15:41)
[2018-09-19] MEDS: Ubidecarenone 50 MG CAP PO SCH (08:48)
[2018-09-19] MEDS: Famotidine 20 MG TAB PO SCH (08:49)
[2018-09-19] MEDS: Folic Acid 1 MG TAB PO SCH (08:49)
[2018-09-19] MEDS: Cyanocobalamin (Vitamin B-12) 1,000 MCG TAB PO SCH (08:49)
[2018-09-19] MEDS: Multivit, Therapeutic 1 TAB PO SCH (08:49)
[2018-09-19] MEDS: Gabapentin 100 MG CAP PO SCH ×2 (08:49→15:41)
[2018-09-19] MEDS: Aspirin Chewable 81 MG TAB PO SCH (08:49)
--- NOTE | 2018-09-19 08:49 | RAD ---
Exam: Chest one view HISTORY:Pneumothorax. Rib fracture. Comparison: 09/18/2018 FINDINGS: Cardiac silhouette: Normal Aorta: Unremarkable Pulmonary vessels: Normal Costophrenic angles: Minimal blunting of the left costophrenic angle LUNGS: Left lower lobe opacity obscuring the lateral hemidiaphragm Pneumothorax: None Soft tissues: Stable left neck and chest subcutaneous emphysema Osseous abnormalities: No left rib fractures are difficult to demonstrate radiograph. IMPRESSION: 1. Stable subcutaneous emphysema. 2. No obvious pneumothorax. 3. Pleural and parenchymal changes in the left lung base
[2018-09-19] MEDS: Oxazepam 10 MG CAP PO SCH ×2 (08:50→15:41)
[2018-09-19] MEDS: Lisinopril 10 MG TAB PO SCH (08:50)
[2018-09-19] MEDS: Rib Fracture Protocol PO SCH (08:51)
[2018-09-19 11:43] VITALS: BP 110/68; TEMP 98
--- NOTE | 2018-09-19 21:07 | DIS ---
DATE OF ADMISSION: 09/16/2018 DATE OF DISCHARGE: 09/19/2018 ADMISSION DIAGNOSES: 1. Status post ground level fall. 2. Left rib fracture, 3 through 7. 3. Pulmonary contusion. 4. Small left pneumothorax. 5. Daily alcohol use. 6. History of seizure disorder, on Dilantin. 7. Urinary tract infection. 8. History of peripheral vascular disease, on dual antiplatelet therapy. 9. History of hypertension. DISCHARGE DIAGNOSES: 1. Status post ground level fall. 2. Left rib fracture, 3 through 7. 3. Pulmonary contusion, stable. 4. Small left pneumothorax, improving. 5. Daily alcohol use. 6. History of seizure disorder, on Dilantin. 7. History of peripheral vascular disease, on dual antiplatelet therapy. 8. History of hypertension. 9. Urinary tract infection. 10. Chronic weakness and debility, stable. PROCEDURES: None. HOSPITAL COURSE: The patient is a 78-year-old male, who comes in after a ground level fall, resulting multiple rib fractures, left pneumothorax, scalp abrasion with a history of vascular disease and hypertension. The patient was found out to have UTI upon arrival. UTI resolved. Blood sugar controlled. The patient is able to tolerate regular diet. Normal regimen of urination and bowel movement. The patient is able to walk with physical therapy and occupational therapy. PHYSICAL EXAMINATION: GENERAL: Elderly appearing male, in no distress, resting in bed. VITAL SIGNS: Temperature 98, pulse 93, respiratory rate 20, O2 saturation 98 on nasal cannula 3 L, blood pressure 110/68. LUNGS: Clear bilaterally. HEART: Regular rate and rhythm. ABDOMEN: Soft and nondistended. Normal bowel sounds. EXTREMITIES: Neurovascularly intact. Range of motion on the patient's baseline. NEUROLOGIC: No focal neurologic deficits. DISCHARGE DISPOSITION: Acute rehab facility. DISCHARGE STATUS: Satisfactory. DISCHARGE INSTRUCTIONS: The patient is to take medication as directed. The patient is to participate with physical therapy and occupational therapy. The patient is to use spirometry for pulmonary toilet. The patient is to follow up with Dr. Aguirre at the rehab facility. Job ID: [id number]
== END 2018-09-19 16:55 | DRG 200 ==
LOC: ERS 07:56 → SURG B 10:00
PROVIDERS: ADMIT Surgery; ATTEND Surgery
DX: S27.0XXA Traumatic pneumothorax, initial encounter (principal); S22.42XA Multiple fractures of ribs, left side, initial encounter for closed fracture; E87.1 Hypo-osmolality and hyponatremia; N39.0 Urinary tract infection, site not specified; S27.321A Contusion of lung, unilateral, initial encounter; I25.10 Atherosclerotic heart disease of native coronary artery without angina pectoris; E78.5 Hyperlipidemia, unspecified; I10 Essential (primary) hypertension; W18.30XA Fall on same level, unspecified, initial encounter; S01.01XA Laceration without foreign body of scalp, initial encounter; G40.909 Epilepsy, unspecified, not intractable, without status epilepticus; I73.9 Peripheral vascular disease, unspecified; N40.0 Benign prostatic hyperplasia without lower urinary tract symptoms; B96.20 Unspecified Escherichia coli [E. coli] as the cause of diseases classified elsewhere; R41.0 Disorientation, unspecified; R45.1 Restlessness and agitation; Z85.46 Personal history of malignant neoplasm of prostate; Z79.899 Other long term (current) drug therapy; Z79.01 Long term (current) use of anticoagulants; Z79.82 Long term (current) use of aspirin
CPT/HCPCS: 36415; 71045; 80048; 80185; 81001; 83735; 84100; 84146; 84484; 85025; 87077; 87086; 87186; 94640; G0390; J1650; J1885; J3475; J3480; J7620

== ENCOUNTER 2018-10-04 15:56 | Inpatient (IN) | payer MEDICARE ==
[2018-10-04 16:57] LABS: #Eosinphils 0.2 thou/uL (0.0-0.7); #Lymphocytes 0.9 thou/uL (1.20-3.40); #Monocytes 0.7 thou/uL (0.11-0.59); #Neutrophils 9.5 thou/uL (1.40-6.50); %Basophils 0.1 % (0.0-1.0); %Eosinophils 1.6 % (0.0-10.0); %Lymphocytes 7.6 % (21.0-51.0); %Monocytes 6.4 % (0.0-10.0); %Neutrophils 84.3 % (42.0-75.0); Hemoglobin 12.8 g/dL (14.0-18.0); Mean Corpuscular HGB CONC 35.3 g/dL (32.0-36.0); Mean Corpuscular Hemoglobin 34.8 pg (27.0-31.0); Mean Corpuscular Volume 98.6 fL (78.0-98.0); Mean Platelet Volume 7.3 fL (7.4-10.4); Platelet Count 192 thou/uL (130-400); RBC Distribution Width 12.2 % (11.5-14.5); Red Blood Cell (RBC) Count 3.67 mill/uL (4.70-6.10); White Blood Cell (WBC) Count 11.3 thou/uL (4.8-10.8)
[2018-10-04 17:23] LABS: ALT (SGPT) 12 U/L (8-55); AST (SGOT) 17 U/L (5-34); Albumin 3.6 g/dL (3.4-4.8); Alkaline Phosphatase 140 U/L (40-150); Anion Gap 13 mmol/L (10-20); BUN (Urea Nitrogen) 14 mg/dL (8.4-25.7); Bilirubin, Total 0.2 mg/dL (0.2-1.2); Calc. Creatinine Clearance 0 mL/min (70-130); Carbon Dioxide 21 mmol/L (23-31); Chloride 106 mmol/L (98-107); Estimated GFR-MDRD 88; Globulin 2.5 g/dL (2.4-3.5); Glucose 125 mg/dL (83-110); Potassium 3.7 mmol/L (3.5-5.1); Protein, Total 6.1 g/dL (5.8-8.1); Sodium 136 mmol/L (136-145)
--- NOTE | 2018-10-04 17:25 | CT ---
HEAD CT WITHOUT IV CONTRAST: Date: 10/04/18 HISTORY: Altered mental status, seizure. COMPARISON: 09/16/18. FINDINGS: Stable bilateral atrophy and chronic white matter ischemic change. No focal mass or midline shift. No intra or extra-axial hemorrhage. Sinuses and mastoids are clear of acute process. IMPRESSION: Stable findings. No mass or bleed. POS: [facility]
[2018-10-04 17:58] LABS: Bacteria/HPF 4+ HPF (None Seen); Bilirubin Negative (Negative); Blood, Urine Negative (Negative); Clarity Turbid (Clear); Glucose, Urine (Dipstick) Normal (Negative); Leukocyte 500 Leu/uL (Negative); Nitrite Negative (Negative); Protein, Urine (Dipstick) 50 mg/dL (Neg-Trace); RBC/HPF 0-3 HPF (0-3); Squamous Epithelial 0-3 HPF (0-3); WBC/HPF Greater than 50 HPF (0-3)
[2018-10-04] MEDS ORDERED: Fosphenytoin Sodium 1,500 MG in Sodium Chloride 0.9% 50 ML IVPB SCH (18:00)
[2018-10-04] MEDS ORDERED: cefTRIAXone\\ROCEPHIN 2 GM VIAL ONE (19:27)
--- NOTE | 2018-10-04 21:14 | PDOC.FPRHP ---
- History of Present Illness Chief Complaint: Seizure History of Present Illness: History obtained from and 2 sons at bedside, due to AMS of pt. Pt is a 78 yo M with history of seizures x2 in 2017, CAD, HTN, HLD, and PVD who presents for a seizure. The patient had a fall on 09/16, due to instability. He fell and hit his head. He was admitted and found to have 5 cracked ribs and a punctured lung. While he was here, he was also treated for a UTI. He was discharged on 09/19 to [facility] and was there till 10/01. He was discharged with home health speech and physical therapy. The states the pt has been altered since he came home from rehab. Today, he was working with the physical therapist around 2 pm. He went to use the bathroom and while he was going to sit down had a grand mal seizure. The home health physical therapist was able to lower him on to the toilet. He did not bit his tongue or urinate himself, but he did have a bowel movement. His family called EMS and he was transported to the ER. ED Course: On the way to the hospital, he received 4 mg of Ativan. He had 3 IVs placed, because he pulled out two of them. In the ER, He was found to have a Dilantin level of 6.5 (Normal: 10-20). He was given 1500 mg of Dilantin (17:45 10/04). CT Brain was negative. His WBC was 11.3. He had a UA with turbit urine that was found to have 500 leukocytes, >50 WBC, 4+ kathrine. He was given 2 g of Rocephin (18:33 10/04). CPK was 84, Prolactin was 33.44. - Allergies/Adverse Reactions Allergies Allergy/AdvReac Type Severity Reaction Status Date / Time malathion Allergy Severe Verified 10/04/18 23:57 - Home Medications Medication Instructions Recorded Confirmed Type Atorvastatin Calcium [Lipitor] 80 mg PO HS 06/20/16 10/04/18 History Omeprazole 20 mg PO DAILY 06/20/16 10/04/18 History Ubidecarenone [CoQ-10] 100 mg PO DAILY 06/20/16 10/04/18 History Biotin 500 mg PO DAILY 09/16/18 10/04/18 History Metoprolol Succinate [Toprol XL] 50 mg PO BID 09/16/18 10/04/18 History Phenytoin Sodium Extended 400 mg PO HS 09/16/18 10/04/18 History Cilostazol [Pletal] 100 mg PO BID-AC tab 09/19/18 10/04/18 Rx Hydrochlorothiazide 25 mg PO DAILY 10/04/18 10/04/18 History - History PMHx: Seizure x2 (09/29 & 12/31), CAD, Hx of Prostate Cancer, Hx of Umbilical Hernia, HTN, HLD, PVD PSHx: Prostatectomy, Umbilical Hernia Repair, Tonsillectomy, Heart Cath x2 FHx: Non-contributory Social: He drinks 2-3 glasses of scotch daily, but he has not had any since his hospital admission on 09/16. He used to smoke, but quit in 1998. Previous to that he had a 20 year history of 1PPD. He does not use any recreational drugs. - Review of Systems ROS unobtainable: due to mental status - Vital signs BP: 143/77 HR: 84 RR: 21 Tmax: 97.5 Pox: 100% on 2L Wt: 72.6 kg - Physical Exam Constitutional: other (AMS, pt would not awaken to sternal rub.) HEENT: normocephalic and atraumatic, MMM, oropharynx clear Neck: supple, no LAD Chest: no-tender to palpation Heart: no murmurs/rubs/gallops -Heart: Irregular rhythm, regular rate. Lungs: CTAB Abdomen: soft, non-tender, bowel sounds present -Abdomen: Abdomen is distended Musculoskeletal: normal structure, normal tone -Neurological: Unable to assess. Pt would not follow commands. Skin: no rash/lesions, no jaundice Heme/Lymphatic: no unusual bruising or bleeding, no purpura, no petechia, no LAD FMR H&P: Results - Labs Result Diagrams: 10/05/18 05:02 10/05/18 05:02 Lab results: WBC 11.3 thou/uL (4.8-10.8) H 10/04/18 16:48 Hgb 12.8 g/dL (14.0-18.0) L 10/04/18 16:48 Hct 36.2 % (42.0-52.0) L 10/04/18 16:48 MCV 98.6 fL (78.0-98.0) H 10/04/18 16:48 Plt Count 192 thou/uL (130-400) 10/04/18 16:48 Neutrophils % 84.3 % (42.0-75.0) H 10/04/18 16:48 Sodium 136 mmol/L (136-145) 10/04/18 16:48 Potassium 3.7 mmol/L (3.5-5.1) 10/04/18 16:48 Chloride 106 mmol/L (98-107) 10/04/18 16:48 Carbon Dioxide 21 mmol/L (23-31) L 10/04/18 16:48 BUN 14 mg/dL (8.4-25.7) 10/04/18 16:48 Creatinine 0.85 mg/dL (0.7-1.3) 10/04/18 16:48 Glucose 125 mg/dL (83-110) H 10/04/18 16:48 Calcium 9.0 mg/dL (7.8-10.44) 10/04/18 16:48 Total Bilirubin 0.2 mg/dL (0.2-1.2) 10/04/18 16:48 AST 17 U/L (5-34) 10/04/18 16:48 ALT 12 U/L (8-55) 10/04/18 16:48 Alkaline Phosphatase 140 U/L (40-150) 10/04/18 16:48 Creatine Kinase 84 U/L (30-200) 10/04/18 18:35 Serum Total Protein 6.1 g/dL (5.8-8.1) 10/04/18 16:48 Albumin 3.6 g/dL (3.4-4.8) 10/04/18 16:48 Urine Ketones Negative mg/dL (Negative) 10/04/18 17:25 Urine Blood Negative (Negative) 10/04/18 17:25 Urine Nitrite Negative (Negative) 10/04/18 17:25 Ur Leukocyte Esterase 500 Dennis/uL (Negative) A 10/04/18 17:25 Urine RBC 0-3 HPF (0-3) 10/04/18 17:25 Urine WBC Greater than 50 HPF (0-3) A 10/04/18 17:25 Ur Squamous Epith Cells 0-3 HPF (0-3) 10/04/18 17:25 Urine Bacteria 4+ HPF (None Seen) A 10/04/18 17:25 FMR H&P: A/P - Problem List (1) Acute encephalopathy Current Visit: No Status: Acute Code(s): G93.40 - ENCEPHALOPATHY, UNSPECIFIED (2) Seizure disorder Current Visit: No Status: Acute Code(s): G40.909 - EPILEPSY, UNSP, NOT INTRACTABLE, WITHOUT STATUS EPILEPTICUS (3) Urinary tract infection Current Visit: No Status: Acute Qualifiers: Urinary tract infection type: acute cystitis Hematuria presence: without hematuria Qualified Code(s): N30.00 - Acute cystitis without hematuria (4) Dyslipidemia Current Visit: No Status: Chronic Code(s): E78.5 - HYPERLIPIDEMIA, UNSPECIFIED (5) Hypertension Current Visit: No Status: Chronic Code(s): I10 - ESSENTIAL (PRIMARY) HYPERTENSION Qualifiers: Hypertension type: unspecified Qualified Code(s): I10 - Essential (primary ) hypertension - Plan Pt is a 78 yo M with history of seizures x2 in 2017, CAD, HTN, HLD, and PVD who presents for a seizure. 1. Acute Encephalopathy 2/2 Seizure Dilantin Level: 6 (10-20), Given 1500 mg Dilantin in the ER (17:45 10/04) * Seizure precautions * Bedside swallow eval * Q4H neuro checks * Dilantin level in am * Consulted Dr. Matt, appreciate recs. Will increase home dilantin by 100 mg and make sure pt f/u with him. 2. UTI UA: Turbid, 500 leukocytes, >50 WBC, 4+ Kathrine * Given 2 g of Rocephin in ER (18:33 10/04) * UCx pending * Last UTI was E coli pansensitive * Continue on Rocephin for now 3. HTN BP: 143/77 * Continue home meds: Metoprolol, HCTZ * Will monitor 4. HLD * Continue home med: Lipitor 80 mg 5. PVD * Continue home med: Cilostazol Condition: Stable Diet: NPO till swallow eval DVT Prophylaxis: Lovenox GI Prophylaxis: Continue home Prilosec Precautions: Seizure Code Status: Full Dispo: Obs, we need to titrate home Dilantin and treat UTI. FMR H&P: Upper Level - Pertinent history 78 yo M w/ PMH of seizure disorder presents for seizue that occurred this afternoon prior to admission. Pt was working with hh nurse when he became confused and began convulsing per . Additionally, pts reports he has been increasingly confused over the last 4 days, which she believes is possiby due to a UTI because he has acted similarly in the past. denies trauma, focal wekaness, slurred speech prior to event. In ED pt was given 4 ativan and had a 1500mg dilantin loading dose. CT brain showed NAD. - Pertinent findings ROS: Provided by , pt unable to provide ROS 2/2 ams. PE: Gen: Pt lying in bed with sonorous breath sounds, sporadic/spastic movements of all extremities HEENT: PERRL, MMM, NCAT, no evidence of trauma CV: RRR NO MRG Resp: CTAbl no wrr Abd: Protuberant, soft NTND Neuro: Pt sonorous and appears post ictal. He will occasionally follow commands ; however appears confused. No intelligible speech. He is moving all extremities and has no focal deficit. - Plan Date/Time: 10/04/182111 I, Michael Lee DO, have evaluated this patient and agree with findings/ plan as outlined by software engineer intern resident. Pertinent changes/additions are listed here. 1) Seizure: admit stroke obs - pt given loading dose of dilatin in ed, will recheck dilantin level in am and make sure it is not toxic - spoke with pts neurologist who recommends increase dilantin dose by 100mg ( total 150mg/daily) 2) UTI: - pt had pos UA findings and confusion over last 4 days - given 2g rocephin in ED, will cont rocephin has had only reyes sensitive bacteria in past - await culture 3) HTN: Cont home medications 4) HLD: - cont home medications 5) GERD: - cont home medications 6) Claudication - cont home medications Dispo: stable, admit to stroke obs and recheck am dilantin level. If pt remains post ictal in am consider further imaging. PPX: Lovenox Code status: Full PCP: Courtney Addendum - Attending - Attending Attestation Date/Time: 10/05/18 0806 I personally evaluated the patient and discussed the management with Dr. Ohara and Rosa. I agree with the History, Examination, Assessment and Plan documented above with any addition or exceptions noted below. Still postictal during my eval on 10/04. Continue neuro checks. Low suspicion for meningitis and CT reviewed.
[2018-10-04] MEDS ORDERED: Ondansetron PF 4 MG/2 ML Vial IVP PRN (22:10)
[2018-10-04 23:09] VITALS: BMI 29.0
[2018-10-05 05:29] LABS: #Eosinphils 0.2 thou/uL (0.0-0.7); #Lymphocytes 1.3 thou/uL (1.20-3.40); #Monocytes 0.9 thou/uL (0.11-0.59); #Neutrophils 6.4 thou/uL (1.40-6.50); %Basophils 0.3 % (0.0-1.0); %Lymphocytes 14.9 % (21.0-51.0); %Monocytes 9.6 % (0.0-10.0); %Neutrophils 73.3 % (42.0-75.0); Hemoglobin 12.9 g/dL (14.0-18.0); Mean Corpuscular Hemoglobin 33.9 pg (27.0-31.0); Mean Corpuscular Volume 99.5 fL (78.0-98.0); Mean Platelet Volume 7.4 fL (7.4-10.4); Platelet Count 206 thou/uL (130-400); RBC Distribution Width 12.3 % (11.5-14.5); Red Blood Cell (RBC) Count 3.82 mill/uL (4.70-6.10); White Blood Cell (WBC) Count 8.8 thou/uL (4.8-10.8)
[2018-10-05 05:50] LABS: ALT (SGPT) 13 U/L (8-55); AST (SGOT) 20 U/L (5-34); Albumin 3.7 g/dL (3.4-4.8); Alkaline Phosphatase 145 U/L (40-150); Anion Gap 9 mmol/L (10-20); BUN (Urea Nitrogen) 8 mg/dL (8.4-25.7); Bilirubin, Total 0.3 mg/dL (0.2-1.2); Calc. Creatinine Clearance 117 mL/min (70-130); Calcium 9.2 mg/dL (7.8-10.44); Carbon Dioxide 27 mmol/L (23-31); Chloride 105 mmol/L (98-107); Estimated GFR-MDRD Greater than 90; Globulin 2.6 g/dL (2.4-3.5); Glucose 96 mg/dL (83-110); Potassium 3.1 mmol/L (3.5-5.1); Protein, Total 6.3 g/dL (5.8-8.1); Sodium 138 mmol/L (136-145)
--- NOTE | 2018-10-05 06:09 | PDOC.FM ---
- Subjective Subjective: Patient is seen lying in bed with no clothing on this morning, diaper is displaced. He becomes alert upon stimulation of rubbing arm. He remains alert but oriented to person only. He denies any complaints and continues to ask where Pippa (his ?) is. Telemetry overnight showed sinus rhythm in the 90s. - Objective Vital Signs & Weight: Vital Signs (12 hours) Temp Pulse Resp BP Pulse Ox 10/05/18 04:00 98.1 F 84 20 165/87 H 95 10/05/18 00:00 97.7 F 89 20 96 10/04/18 21:34 97.5 F L 73 20 174/89 H 97 Weight Weight 91.762 kg Result Diagrams: 10/06/18 05:13 10/06/18 05:13 Phys Exam - Physical Examination Constitutional: NAD Alert upon stimulation, oriented to person only. Difficult exam secondary to patient's altered mental state HEENT: moist MMs, sclera anicteric Neck: no JVD, supple, full ROM Respiratory: no wheezing, no rhonchi, clear to auscultation bilateral Cardiovascular: RRR, no significant murmur Gastrointestinal: soft, non-tender, positive bowel sounds Musculoskeletal: no edema, pulses present Neurological: moves all 4 limbs Deviation from normal: AMS Skin: no rash, normal turgor Dx/Plan (1) Acute encephalopathy Code(s): G93.40 - ENCEPHALOPATHY, UNSPECIFIED Status: Acute (2) Seizure Code(s): R56.9 - UNSPECIFIED CONVULSIONS Status: Acute (3) Urinary tract infection Status: Acute Qualifiers: Urinary tract infection type: acute cystitis Hematuria presence: without hematuria Qualified Code(s): N30.00 - Acute cystitis without hematuria (4) Dyslipidemia Code(s): E78.5 - HYPERLIPIDEMIA, UNSPECIFIED Status: Chronic (5) Hypertension Code(s): I10 - ESSENTIAL (PRIMARY) HYPERTENSION Status: Chronic Qualifiers: Hypertension type: unspecified Qualified Code(s): I10 - Essential (primary ) hypertension (6) Peripheral neuropathy Code(s): G62.9 - POLYNEUROPATHY, UNSPECIFIED Status: Chronic Qualifiers: Peripheral neuropathy type: polyneuropathy, unspecified Qualified Code(s): G62.9 - Polyneuropathy, unspecified - Plan Plan: Pt is a 78 yo M with history of seizures x2 in 2017, CAD, HTN, HLD, and PVD who presents for a seizure. 1. Acute Encephalopathy 2/2 Seizure -admission Dilantin Level: 6 (10-20), Given 1500 mg Dilantin in the ER (17:45 ) -home Dilantin currently being held until Dilantin level returns this AM -place on Seizure precautions -Bedside swallow eval -Q4H neuro checks -Consulted Dr. Matt, appreciate recs. Will increase home dilantin by 100 mg when restarted (up to 500mg daily) and make sure f/u outpatient with him. 2. UTI -UA: Turbid, 500 leukocytes, >50 WBC, 4+ Kathrine -Given 2 g of Rocephin in ER (18:33 10/04), will continue Rocephin -UCx pending -Last UTI was E coli pansensitive 3. HTN -BP: 143/77 -Continue home meds: Metoprolol, HCTZ -Will monitor vitals 4. HLD -Continue home med: Lipitor 80 mg 5. PVD -Continue home med: Cilostazol Diet: NPO till swallow eval DVT Prophylaxis: Lovenox GI Prophylaxis: Continue home Prilosec Precautions: Seizure Code Status: FULL Dispo: Stable, admitted to Obs, need to titrate home Dilantin today and treat UTI. Addendum - Attending - Attending Attestation Date/Time: 10/06/18 9494 I personally evaluated the patient and discussed the management with Dr. Rivera. I agree with the History, Examination, Assessment and Plan documented above with any addition or exceptions noted below.
[2018-10-05] MEDS: Hydrochlorothiazide 25 MG TAB PO SCH (08:55)
[2018-10-05] MEDS: Enoxaparin Sodium 40 MG/0.4 ML SYRINGE SC SCH (08:55)
[2018-10-05] MEDS: Cilostazol 100 MG TAB PO SCH ×2 (08:55→15:48)
[2018-10-05] MEDS: Ubidecarenone 50 MG CAP PO SCH (08:56)
[2018-10-05] MEDS ORDERED: Non-Formulary Item 1 EACH (Omeprazole [Omeprazole] 20 MG) PO SCH (09:00)
[2018-10-05] MEDS ORDERED: Prevnar 13-Val Conj/PF 0.5 ML SYRINGE IM ONE (09:00)
[2018-10-05] MEDS ORDERED: BIOTIN 500 MG PO SCH (09:00)
[2018-10-05] MEDS: Potassium Chloride 10 MEQ in Premix Bag 1 BAG IVPB SCH ×3 (11:07→15:49)
[2018-10-05] MEDS ORDERED: Lorazepam 2 MG/ML VIAL SLOW IVP SCH (12:00)
--- NOTE | 2018-10-05 13:00 | CON ---
DATE OF CONSULTATION: 10/05/2018 CONSULT PHYSICIAN: [facility]. IMPRESSION: Recurrent seizure with subtherapeutic Dilantin level of 6.4. PLAN: 1. Continue Dilantin 500 mg per day. 2. The patient can be discharged home today when he is back to his baseline. HISTORY OF PRESENT ILLNESS: Mr. Reed is a 78-year-old male with a history of seizures, coronary artery disease, hypertension, hyperlipidemia, and peripheral vascular disease, who presented yesterday with a recurrent seizure. He apparently fell and hit his head. He was found to have 3 broken ribs and a punctured lung. He was recently treated for urinary tract infection and discharged on the 7th of this month. He has not quite been back to his baseline since his injury. He apparently went to the bathroom prior to admission and had a generalized tonic-clonic seizure. This was witnessed by the therapist. He bit his tongue and urinated on himself. He was transferred back to the hospital for evaluation. His Dilantin level was 6.5. He was given 1500 mg of Dilantin last night. CT scan of the brain was unremarkable. His lab work showed a white blood cell count of 11.3. His urine was suggestive of a urinary tract infection. He was given 2 g of Rocephin last night. Prolactin level was 33.4. He reports this morning that he feels reasonably well. He does not really recall the events that occurred yesterday. He has not had any further seizure activity. PAST MEDICAL HISTORY: As listed above. PAST SURGICAL HISTORY: Tonsillectomy, cardiac catheterization, and prostatectomy. FAMILY HISTORY: Unremarkable. SOCIAL HISTORY: He has 2 to 3 alcoholic beverages per day. He previously smoked, but he does not do so anymore. No illicit drug use. REVIEW OF SYSTEMS: Ten-system review of systems is otherwise unremarkable at this point. PHYSICAL EXAMINATION: GENERAL: He is a well-nourished elderly gentleman, sitting up in bed in an [place] style posture. VITAL SIGNS: Blood pressure 143/77, pulse 84, respirations 20, temperature 97.5. HEENT: Pupils are equal and reactive. Conjunctivae are clear. Oropharynx is clear. NECK: Supple. No lymphadenopathy noted. EXTREMITIES: No cyanosis, clubbing, or edema. NEUROLOGIC: He is awake and cooperative. He appeared a bit lethargic, but answered questions appropriately. He was generally shaky if he sat upright. There was no dysarthria present. Cranial nerves were intact. Motor exam showed equal strength. Sensation was intact to touch. He was a bit tremulous, but otherwise, no abnormal movements were seen. Gait was not tested. SUMMARY: This is a gentleman with a history of seizures, had a breakthrough seizure with a subtherapeutic Dilantin level, still a bit shaky and postictal on appearance. His Dilantin level is 20.5 today. I will continue the Dilantin at 500 mg per day. Job ID: [id number]
[2018-10-05] MEDS ORDERED: hydrOXYzine 25 MG/ML VIAL IM SCH (15:56)
[2018-10-05 17:21] LABS: Anion Gap 15 mmol/L (10-20); BUN (Urea Nitrogen) 8 mg/dL (8.4-25.7); Calc. Creatinine Clearance 115 mL/min (70-130); Calcium 9.8 mg/dL (7.8-10.44); Carbon Dioxide 22 mmol/L (23-31); Chloride 103 mmol/L (98-107); Estimated GFR-MDRD Greater than 90; Glucose 97 mg/dL (83-110); Magnesium 1.6 mg/dL (1.6-2.6); Potassium 3.8 mmol/L (3.5-5.1); Sodium 136 mmol/L (136-145)
[2018-10-05] MEDS ORDERED: cefTRIAXone\\ROCEPHIN 1 GM in Sodium Chloride 0.9% 100 ML IVPB SCH (18:00)
[2018-10-05] MEDS: Atorvastatin Calcium 40 MG TAB PO SCH (21:11)
[2018-10-05] MEDS: Metoprolol Tartrate 50 MG TAB PO SCH (21:11)
[2018-10-06] MEDS ORDERED: hydrOXYzine 25 MG/ML VIAL IM SCH ×2 (01:30→19:15)
[2018-10-06 05:26] LABS: #Eosinphils 0.4 thou/uL (0.0-0.7); #Lymphocytes 1.7 thou/uL (1.20-3.40); #Monocytes 0.8 thou/uL (0.11-0.59); #Neutrophils 3.6 thou/uL (1.40-6.50); %Basophils 0.3 % (0.0-1.0); %Eosinophils 6.1 % (0.0-10.0); %Lymphocytes 26.4 % (21.0-51.0); %Monocytes 12.2 % (0.0-10.0); Hemoglobin 14.8 g/dL (14.0-18.0); Mean Corpuscular HGB CONC 34.7 g/dL (32.0-36.0); Mean Platelet Volume 7.6 fL (7.4-10.4); Platelet Count 205 thou/uL (130-400); RBC Distribution Width 12.4 % (11.5-14.5); Red Blood Cell (RBC) Count 4.36 mill/uL (4.70-6.10); White Blood Cell (WBC) Count 6.6 thou/uL (4.8-10.8)
--- NOTE | 2018-10-06 05:39 | PDOC.FM ---
- Subjective Subjective: Patient is more alert this morning, still oriented to person only. Patient's sitter says that the patient was agitated earlier on in the night, was trying to pull his clothes off and trying to get out of bed. Patient was very physical and trying to resist suggestion to remain in bed. After being given Hydroxyzine the patient seemed to calm down somewhat, still trying to get out of bed but could be easily redirected. Patient slept well for a period of a few hours. Patient denies any complaints this morning. Telemetry overnight showed sinus rhythm in the 70s. - Objective Vital Signs & Weight: Vital Signs (12 hours) Temp Pulse Resp BP Pulse Ox 10/06/18 04:51 93 168/81 H 10/06/18 04:00 97.7 F 75 20 182/96 H 96 10/06/18 00:00 97.9 F 68 18 154/82 H 96 10/05/18 20:00 98.1 F 72 152/91 H 94 L Weight Weight 91.762 kg I&O: 10/04/18 10/05/18 10/06/18 06:59 06:59 06:59 Intake Total 820 Balance 820 Result Diagrams: 10/06/18 05:13 10/06/18 05:13 Phys Exam - Physical Examination Constitutional: NAD HEENT: moist MMs, sclera anicteric Neck: no JVD, supple Respiratory: no wheezing, no rhonchi, clear to auscultation bilateral Cardiovascular: RRR, no significant murmur Gastrointestinal: soft, non-tender, positive bowel sounds Musculoskeletal: no edema, pulses present Neurological: normal sensation, moves all 4 limbs Prefers decorticate posture with both elbows flexed, legs extended Psychiatric: normal affect Deviation from normal: Alert, oriented to person only. Can respond to questions but requires frequent redirection Skin: no rash, normal turgor Dx/Plan (1) Acute encephalopathy Code(s): G93.40 - ENCEPHALOPATHY, UNSPECIFIED Status: Acute (2) Seizure Code(s): R56.9 - UNSPECIFIED CONVULSIONS Status: Acute (3) Urinary tract infection Status: Acute Qualifiers: Urinary tract infection type: acute cystitis Hematuria presence: without hematuria Qualified Code(s): N30.00 - Acute cystitis without hematuria (4) Dyslipidemia Code(s): E78.5 - HYPERLIPIDEMIA, UNSPECIFIED Status: Chronic (5) Hypertension Code(s): I10 - ESSENTIAL (PRIMARY) HYPERTENSION Status: Chronic Qualifiers: Hypertension type: unspecified Qualified Code(s): I10 - Essential (primary ) hypertension (6) Peripheral neuropathy Code(s): G62.9 - POLYNEUROPATHY, UNSPECIFIED Status: Chronic Qualifiers: Peripheral neuropathy type: polyneuropathy, unspecified Qualified Code(s): G62.9 - Polyneuropathy, unspecified - Plan Plan: Pt is a 78 yo M with history of seizures x2 in 2017, CAD, HTN, HLD, and PVD who presents for a seizure. 1. Acute Encephalopathy 2/2 Seizure -admission Dilantin Level: 6 (10-20), Given 1500 mg Dilantin in the ER (17:45 ) -Dilantin 500mg daily restarted @2100 on 10/05 -Dilantin level 10/06: 16.8 (therapeutic) -place on Seizure precautions -Bedside swallow eval -Q4H neuro checks -Consulted Dr. Matt, appreciate recs. Will increase home dilantin by 100 mg when restarted (up to 500mg daily) and make sure f/u outpatient with him. -Patient continues to have periods of severe agitation: Ativan 1 mg and Hydroxyzine 25 mg are prn options, with patient's preferring Hydroxyzine use; will start scheduled Hydroxyzine 50mg BID on 10/06, will plan to talk with patient's this morning about considering starting the patient on Seroquel 2. UTI -UA: Turbid, 500 leukocytes, >50 WBC, 4+ Kathrine -Given 2 g of Rocephin in ER (18:33 10/04), Rocephin total x 2 doses and discontinued on 10/06 with transition to PO Ciprofloxacin 500 mg x 6 days -UCx positive for E. Coli, pansensitive -Last UTI in June 2018 was E coli pansensitive 3. HTN -BP: 143/77 -Continue home meds: Metoprolol, HCTZ -Will monitor vitals 4. HLD -Continue home med: Lipitor 80 mg 5. PVD -Continue home med: Cilostazol Diet: Heart Healthy DVT Prophylaxis: Lovenox GI Prophylaxis: Continue home Prilosec Precautions: Seizure Code Status: FULL Dispo: Stable, admitted to Obs, home Dilantin increased to 500mg on 10/05 and continue to treat UTI with transition to PO Cipro today. Will consult Case Management today for discharge planning to rehab vs swingbed facility. Anticipated LOS <48hrs. Addendum - Attending - Attending Attestation Date/Time: 10/06/18 6046 I personally evaluated the patient and discussed the management with Dr. Rivera. I agree with the History, Examination, Assessment and Plan documented above with any addition or exceptions noted below.
[2018-10-06 05:47] LABS: ALT (SGPT) 16 U/L (8-55); AST (SGOT) 25 U/L (5-34); Alkaline Phosphatase 170 U/L (40-150); Anion Gap 16 mmol/L (10-20); BUN (Urea Nitrogen) 9 mg/dL (8.4-25.7); Bilirubin, Total 0.5 mg/dL (0.2-1.2); Calc. Creatinine Clearance 117 mL/min (70-130); Calcium 9.8 mg/dL (7.8-10.44); Carbon Dioxide 21 mmol/L (23-31); Chloride 100 mmol/L (98-107); Estimated GFR-MDRD Greater than 90; Globulin 2.9 g/dL (2.4-3.5); Glucose 81 mg/dL (83-110); Potassium 3.5 mmol/L (3.5-5.1); Protein, Total 6.9 g/dL (5.8-8.1); Sodium 133 mmol/L (136-145)
[2018-10-06] MEDS: Cilostazol 100 MG TAB PO SCH ×2 (08:47→16:15)
[2018-10-06] MEDS: Hydrochlorothiazide 25 MG TAB PO SCH (08:48)
[2018-10-06] MEDS: Metoprolol Tartrate 50 MG TAB PO SCH ×2 (08:49→20:32)
[2018-10-06] MEDS: Ubidecarenone 50 MG CAP PO SCH (08:50)
[2018-10-06] MEDS: Enoxaparin Sodium 40 MG/0.4 ML SYRINGE SC SCH (08:53)
[2018-10-06] MEDS ORDERED: hydrOXYzine 10 MG/5 ML UDCUP PO SCH (09:00)
[2018-10-06] MEDS: Ciprofloxacin 500 MG TAB PO SCH (10:15)
--- NOTE | 2018-10-06 12:07 | EKG ---
Test Reason : Blood Pressure : / mmHG Vent. Rate : 096 BPM Atrial Rate : 096 BPM P-R Int : 210 ms QRS Dur : 096 ms QT Int : 368 ms P-R-T Axes : 026 010 116 degrees QTc Int : 464 ms Sinus rhythm with 1st degree A-V block with Fusion complexes Nonspecific ST and T wave abnormality Prolonged QT Abnormal ECG Confirmed by BRIE DEXTER MD ([id number]), digital editor PEDRO NIELSEN ([id number]) on 10/06/2018 12:06:56 PM Referred By: Confirmed By:BRIE DEXTER MD
[2018-10-06] MEDS: Atorvastatin Calcium 40 MG TAB PO SCH (20:32)
[2018-10-07] MEDS: hydrOXYzine 25 MG TAB PO PRN ×2 (02:42→19:59)
--- NOTE | 2018-10-07 05:18 | PDOC.FM ---
- Subjective Subjective: Patient has no complaints this mornings. He is easily stimulated to awaken but does not remain alert for very long. Still cannot answer where he is at. He also has difficulty remembering his sons' names this morning but can remember with some prompting. Telemetry showed sinus in 70s-90s overnight. Night sitter states that patient had restless sleep on/off with fidgeting during the night. She says he attempted to get out of bed 2-3 times but was easily redirected to return to sleep. He required 1 dose IM Hydroxyzine for agitation overnight by the night team. - Objective Vital Signs & Weight: Vital Signs (12 hours) Temp Pulse Resp BP Pulse Ox 10/07/18 04:00 98.4 F 68 20 137/85 98 10/07/18 03:45 96 10/07/18 00:00 98.7 F 74 16 121/71 96 10/06/18 20:00 98.5 F 86 18 163/90 H 94 L Weight Weight 91.762 kg I&O: 10/05/18 10/06/18 10/07/18 06:59 06:59 06:59 Intake Total 1180 Balance 1180 Result Diagrams: 10/07/18 05:55 10/07/18 05:55 Phys Exam - Physical Examination Constitutional: NAD HEENT: moist MMs, sclera anicteric Neck: no JVD, supple, full ROM Respiratory: no wheezing, no rales, no rhonchi, clear to auscultation bilateral Cardiovascular: RRR, no significant murmur Gastrointestinal: soft, non-tender, positive bowel sounds Musculoskeletal: no edema, pulses present Neurological: normal sensation, moves all 4 limbs decorticate posture not observed this morning, arms & legs extended Psychiatric: normal affect Deviation from normal: alert with stimulation, oriented to person only Skin: no rash, normal turgor Dx/Plan (1) Acute encephalopathy Code(s): G93.40 - ENCEPHALOPATHY, UNSPECIFIED Status: Acute (2) Seizure Code(s): R56.9 - UNSPECIFIED CONVULSIONS Status: Acute (3) Urinary tract infection Status: Acute Qualifiers: Urinary tract infection type: acute cystitis Hematuria presence: without hematuria Qualified Code(s): N30.00 - Acute cystitis without hematuria (4) Dyslipidemia Code(s): E78.5 - HYPERLIPIDEMIA, UNSPECIFIED Status: Chronic (5) Hypertension Code(s): I10 - ESSENTIAL (PRIMARY) HYPERTENSION Status: Chronic Qualifiers: Hypertension type: unspecified Qualified Code(s): I10 - Essential (primary ) hypertension (6) Peripheral neuropathy Code(s): G62.9 - POLYNEUROPATHY, UNSPECIFIED Status: Chronic Qualifiers: Peripheral neuropathy type: polyneuropathy, unspecified Qualified Code(s): G62.9 - Polyneuropathy, unspecified - Plan Plan: Pt is a 78 yo M with history of seizures x2 in 2017, CAD, HTN, HLD, and PVD who presents for a seizure. 1. Acute Encephalopathy 2/2 Seizure -admission Dilantin Level: 6 (10-20), Given 1500 mg Dilantin in the ER (17:45 ) -Dilantin 500mg daily restarted @2100 on 10/05 -Dilantin level 10/06: 16.8 (therapeutic) -place on Seizure precautions -Bedside swallow eval -Q4H neuro checks -Consulted Dr. Matt, appreciate recs. Will increase home dilantin by 100 mg when restarted (up to 500mg daily) and make sure f/u outpatient with him. -Patient continues to have periods of severe agitation: Ativan 1 mg and Hydroxyzine 25 mg are prn options, with patient's preferring Hydroxyzine use; will start scheduled Hydroxyzine 50mg BID on 10/06 in AM -started Seroquel 50 mg last night -PT/OT consult -Case Management consult 2. UTI -UA: Turbid, 500 leukocytes, >50 WBC, 4+ Kathrine -Given 2 g of Rocephin in ER (18:33 10/04), Rocephin total x 2 doses and discontinued on 10/06 with transition to PO Ciprofloxacin 500 mg x 6 days -UCx positive for E. Coli, pansensitive -Last UTI in June 2018 was E coli pansensitive 3. HTN -BP: 143/77 -Continue home meds: Metoprolol, HCTZ -Will monitor vitals 4. HLD -Continue home med: Lipitor 80 mg 5. PVD -Continue home med: Cilostazol Diet: Heart Healthy DVT Prophylaxis: Lovenox GI Prophylaxis: Continue home Prilosec Precautions: Seizure Code Status: FULL Dispo: Stable, admitted to Obs, home Dilantin increased to 500mg on 10/05 and continue to treat UTI with transition to PO Cipro on 10/06. Case Management consulted for discharge planning to rehab vs swingbed facility. Awaiting PT/OT recs and rehab screen. Anticipated LOS <48hrs. Addendum - Attending - Attending Attestation Date/Time: 10/07/18 1006 I personally evaluated the patient and discussed the management with Dr. Rivera. I agree with the History, Examination, Assessment and Plan documented above with any addition or exceptions noted below.
[2018-10-07 06:11] LABS: #Eosinphils 0.4 thou/uL (0.0-0.7); #Lymphocytes 1.9 thou/uL (1.20-3.40); #Monocytes 0.9 thou/uL (0.11-0.59); #Neutrophils 4.3 thou/uL (1.40-6.50); %Basophils 0.4 % (0.0-1.0); %Eosinophils 5.1 % (0.0-10.0); %Lymphocytes 25.5 % (21.0-51.0); Hemoglobin 14.3 g/dL (14.0-18.0); Mean Corpuscular HGB CONC 34.7 g/dL (32.0-36.0); Mean Corpuscular Hemoglobin 33.9 pg (27.0-31.0); Mean Corpuscular Volume 97.7 fL (78.0-98.0); Mean Platelet Volume 7.3 fL (7.4-10.4); Platelet Count 209 thou/uL (130-400); RBC Distribution Width 12.3 % (11.5-14.5); Red Blood Cell (RBC) Count 4.23 mill/uL (4.70-6.10); White Blood Cell (WBC) Count 7.6 thou/uL (4.8-10.8)
[2018-10-07 06:36] LABS: ALT (SGPT) 14 U/L (8-55); AST (SGOT) 24 U/L (5-34); Albumin 3.8 g/dL (3.4-4.8); Alkaline Phosphatase 158 U/L (40-150); Anion Gap 14 mmol/L (10-20); BUN (Urea Nitrogen) 17 mg/dL (8.4-25.7); Bilirubin, Total 0.4 mg/dL (0.2-1.2); Calc. Creatinine Clearance 106 mL/min (70-130); Calcium 9.5 mg/dL (7.8-10.44); Carbon Dioxide 22 mmol/L (23-31); Chloride 98 mmol/L (98-107); Estimated GFR-MDRD Greater than 90; Globulin 2.8 g/dL (2.4-3.5); Glucose 88 mg/dL (83-110); Potassium 3.7 mmol/L (3.5-5.1); Protein, Total 6.6 g/dL (5.8-8.1); Sodium 130 mmol/L (136-145)
[2018-10-07] MEDS: Ubidecarenone 50 MG CAP PO SCH (08:37)
[2018-10-07] MEDS: hydrOXYzine 25 MG TAB PO SCH (08:38)
[2018-10-07] MEDS: Hydrochlorothiazide 25 MG TAB PO SCH (08:38)
[2018-10-07] MEDS: Ciprofloxacin 500 MG TAB PO SCH (08:38)
[2018-10-07] MEDS: Metoprolol Tartrate 50 MG TAB PO SCH ×2 (08:38→19:59)
[2018-10-07] MEDS: Enoxaparin Sodium 40 MG/0.4 ML SYRINGE SC SCH (08:39)
[2018-10-07] MEDS: Cilostazol 100 MG TAB PO SCH ×2 (08:39→14:56)
[2018-10-07] MEDS: Atorvastatin Calcium 40 MG TAB PO SCH (19:58)
[2018-10-08 04:52] LABS: #Eosinphils 0.3 thou/uL (0.0-0.7); #Lymphocytes 1.7 thou/uL (1.20-3.40); #Neutrophils 6.7 thou/uL (1.40-6.50); %Basophils 0.1 % (0.0-1.0); %Eosinophils 3.1 % (0.0-10.0); %Lymphocytes 17.6 % (21.0-51.0); %Monocytes 10.5 % (0.0-10.0); %Neutrophils 68.6 % (42.0-75.0); Hemoglobin 14.5 g/dL (14.0-18.0); Mean Corpuscular HGB CONC 35.5 g/dL (32.0-36.0); Mean Corpuscular Hemoglobin 34.8 pg (27.0-31.0); Mean Corpuscular Volume 98.1 fL (78.0-98.0); Mean Platelet Volume 7.9 fL (7.4-10.4); Platelet Count 209 thou/uL (130-400); RBC Distribution Width 12.2 % (11.5-14.5); Red Blood Cell (RBC) Count 4.16 mill/uL (4.70-6.10); White Blood Cell (WBC) Count 9.7 thou/uL (4.8-10.8)
[2018-10-08 05:16] LABS: ALT (SGPT) 13 U/L (8-55); AST (SGOT) 21 U/L (5-34); Albumin 3.9 g/dL (3.4-4.8); Alkaline Phosphatase 158 U/L (40-150); Anion Gap 14 mmol/L (10-20); BUN (Urea Nitrogen) 22 mg/dL (8.4-25.7); Bilirubin, Total 0.5 mg/dL (0.2-1.2); Calc. Creatinine Clearance 82 mL/min (70-130); Calcium 9.5 mg/dL (7.8-10.44); Carbon Dioxide 24 mmol/L (23-31); Chloride 96 mmol/L (98-107); Estimated GFR-MDRD 73; Globulin 2.8 g/dL (2.4-3.5); Glucose 94 mg/dL (83-110); Potassium 3.5 mmol/L (3.5-5.1); Protein, Total 6.7 g/dL (5.8-8.1); Sodium 130 mmol/L (136-145)
--- NOTE | 2018-10-08 05:20 | PDOC.FM ---
- Subjective Subjective: Patient altered this morning, A&O x 0 but could answer questions. not in the room this morning, sitter states that the report she got was that he was very agitated overnight. Patient denied any cp, sob, dysuria, abdominal pain. - Objective Vital Signs & Weight: Vital Signs (12 hours) Temp Pulse Resp BP Pulse Ox 10/08/18 04:00 98.4 F 88 20 121/86 95 10/08/18 00:00 98.4 F 88 18 142/90 H 94 L 10/07/18 19:51 98.4 F 100 16 131/71 96 Weight Weight 91.762 kg I&O: 10/06/18 10/07/18 10/08/18 06:59 06:59 06:59 Intake Total 9908 463 1402 Output Total 450 600 Balance 1180 -40 820 Result Diagrams: 10/08/18 04:27 10/08/18 04:27 EKG Reviewed by me: Yes (Normal sinus, 80s-100s) Phys Exam - Physical Examination Constitutional: NAD HEENT: moist MMs, sclera anicteric Neck: supple, full ROM Respiratory: clear to auscultation bilateral Cardiovascular: RRR, no significant murmur Gastrointestinal: soft, non-tender some distention Musculoskeletal: no edema, pulses present Neurological: moves all 4 limbs Deviation from normal: A&Ox 0 Skin: no rash, normal turgor Dx/Plan (1) HLD (hyperlipidemia) Code(s): E78.5 - HYPERLIPIDEMIA, UNSPECIFIED Status: Acute (2) PVD (peripheral vascular disease) Code(s): I73.9 - PERIPHERAL VASCULAR DISEASE, UNSPECIFIED Status: Acute (3) Acute encephalopathy Code(s): G93.40 - ENCEPHALOPATHY, UNSPECIFIED Status: Acute (4) Urinary tract infection Status: Acute Qualifiers: Urinary tract infection type: acute cystitis Hematuria presence: without hematuria Qualified Code(s): N30.00 - Acute cystitis without hematuria (5) Hypertension Code(s): I10 - ESSENTIAL (PRIMARY) HYPERTENSION Status: Chronic Qualifiers: Hypertension type: unspecified Qualified Code(s): I10 - Essential (primary ) hypertension - Plan Plan: Pt is a 78 yo M with PMHX of seizures x2 in 2017, CAD, HTN, HLD, and PVD with recent admission 09/16 for fall, rib fx, and UTI who presents for a seizure. #Acute Encephalopathy 2/2 Seizure -admission Dilantin Level: 6 (10-20), Given 1500 mg Dilantin in the ER (17:45 ) -home Dilantin dose was 400mg QD -Dilantin 500mg daily restarted @2100 on 10/05, per recs from Dr. Matt; fill need to f/u outpatient -Dilantin level 10/06: 16.8 (therapeutic) -Seizure precautions -Bedside swallow eval pending -Q4H neuro checks -Patient continues to have periods of severe agitation: scheduled Hydroxyzine 50mg PO QD started on 10/06 in AM, with 25mg Hydroxyzine Q6H PRN -started Seroquel 50 mg QHS 10/06, will continue outpatient -PT/OT consult on board, difficult assessments so far 2/2 patient agitation -original assessment, PT rec rehab vs [facility] -Case Management consult # UTI -UA: Turbid, 500 leukocytes, >50 WBC, 4+ Kathrine -Given 2 g of Rocephin in ER (18:33 10/04), Rocephin total x 2 doses and discontinued on 10/06 with transition to PO Ciprofloxacin 500 mg x 6 days -UCx positive for E. Coli, pansensitive -Last UTI in June 2018 was E coli pansensitive -continue Cipro 500mg PO for 6 day course, today is day 3 # HTN -BP: 121/86 -Continue home meds: Metoprolol, HCTZ -Will monitor vitals # HLD -Continue home med: Lipitor 80 mg # PVD -Continue home med: Cilostazol Diet: Heart Healthy DVT Prophylaxis: Lovenox GI Prophylaxis: Continue home Prilosec Precautions: Seizure Code Status: FULL Dispo: Tele obs, on 500mg Dilantin for seizure prevention and PO Cipro for UTI. Case Management consulted for discharge planning to rehab vs swingbed facility. Awaiting PT/OT recs and rehab screen.
[2018-10-08] MEDS ORDERED: hydrOXYzine 25 MG/ML VIAL IM PRN (09:04)
[2018-10-08] MEDS: Cilostazol 100 MG TAB PO SCH ×2 (09:56→15:56)
[2018-10-08] MEDS: Metoprolol Tartrate 50 MG TAB PO SCH ×2 (09:56→20:33)
[2018-10-08] MEDS: Hydrochlorothiazide 25 MG TAB PO SCH (09:56)
[2018-10-08] MEDS: Enoxaparin Sodium 40 MG/0.4 ML SYRINGE SC SCH (09:56)
[2018-10-08] MEDS: Ciprofloxacin 500 MG TAB PO SCH (09:56)
[2018-10-08] MEDS: Ubidecarenone 50 MG CAP PO SCH (09:56)
[2018-10-08] MEDS: hydrOXYzine 25 MG TAB PO SCH (10:01)
--- NOTE | 2018-10-08 11:53 | PRG ---
DATE OF SERVICE: 10/08/2018 Mr. Reed is a pleasant 78-year-old man, who was admitted four days ago with seizure. Prior to that, he had been in rehab following a fall, where he had some rib fractures. He has been very altered and somewhat agitated during his hospital stay. Head CT did not show any evidence of stroke. I am concerned that he likely has delirium from his hospital and rehab stays. I would recommend we stop the Seroquel and hydroxyzine and put him on a low dose of Haldol as well as keeping him reoriented to time, date, person, etc. We need to keep the television on and window shades open and having family members present will be very helpful as well. We will do some further studies to further rule out organic disease, but I feel this is likely delirium secondary to his hospital stays and multiple changes of locations. Job ID: [id number]
[2018-10-08 12:46] LABS: Syphilis Antibody Nonreactive (Nonreactive); Syphilis Antibody Index 0.09 S/CO (<1.00 Non-Reactive)
[2018-10-08 12:47] LABS: HIV (1/2) Antibody/Antigen Non-Reactive (NonReactive); HIV 1/2 INDEX 0.09 S/CO (<1.00); Hep C IgG Ab Non-Reactive (NonReactive); Thyroid Stimulating Hormone 1.4889 uIU/mL (0.35-4.94)
[2018-10-08 12:59] LABS: Folate (Folic Acid) 11.9 ng/mL (7.0-31.4)
--- NOTE | 2018-10-08 18:14 | PRG ---
DATE OF SERVICE: 10/08/2018 Mr. Reed reportedly has had some waxing and waning degrees of confusion. His reports he was talking reasonably lucid this morning. This afternoon, he is much more confused and unable to answer questions in an appropriate fashion. He seems to look around after being asked a question as if he is going to discover the answer somewhere else. He was reasonably cooperative. There was no dysarthria present. No seizure activity has been witnessed. His vital signs have been stable and he has been afebrile. His reports he does not sleep very soundly through the night. He had to be given some sedation due to agitation. I would suggest, we continue the Haldol at night to try to facilitate a normal sleep pattern. Get an EEG done tomorrow to see if there is any evidence of subclinical seizure activity. Continue his Dilantin at the current dose. Job ID: [id number]
[2018-10-08] MEDS: Atorvastatin Calcium 40 MG TAB PO SCH (20:33)
[2018-10-09] MEDS: Haloperidol Lactate 5 MG/ML VIAL IM PRN (03:06)
--- NOTE | 2018-10-09 05:53 | PDOC.FM ---
- Subjective Subjective: Patient sleeping during evaluation. Per nursing was awakened last night for night medication administration and was somewhat cognizant, knowing who he was and that he saw his earlier that day. Did not know his location. He reportedly slept soundly for a good portion of the night until 1am when he started to become aggitated, grabbing at his lines and trying to get out of bed. Nursing gave him one dose of haldol and he had been sleeping soundly since then. Dr. Matt saw patient yesterday and is agreeable to current dilantin dose and using haldol for sedation. Plans for EEG today. Case management saw patient and yesterday and put in a referral for [facility]. - Objective Vital Signs & Weight: Vital Signs (12 hours) Temp Pulse Resp BP BP Pulse Ox 10/09/18 04:00 98.9 F 74 20 135/70 95 10/08/18 23:02 97.7 F 76 20 130/80 95 10/08/18 20:00 98.2 F 86 20 151/94 H 95 Weight Weight 91.762 kg I&O: 10/07/18 10/08/18 10/09/18 06:59 06:59 06:59 Intake Total 410 1420 1140 Output Total 450 600 Balance -40 820 1140 Result Diagrams: 10/08/18 04:27 10/08/18 04:27 Phys Exam - Physical Examination Constitutional: NAD HEENT: moist MMs Neck: supple, full ROM Respiratory: no wheezing, clear to auscultation bilateral Cardiovascular: RRR, no significant murmur Gastrointestinal: soft, positive bowel sounds Musculoskeletal: no edema, pulses present Neurological: moves all 4 limbs Deviation from normal: patient sleeping during evaluation, reported aggitation overnight Skin: no rash, normal turgor Dx/Plan (1) HLD (hyperlipidemia) Code(s): E78.5 - HYPERLIPIDEMIA, UNSPECIFIED Status: Acute (2) PVD (peripheral vascular disease) Code(s): I73.9 - PERIPHERAL VASCULAR DISEASE, UNSPECIFIED Status: Acute (3) Acute encephalopathy Code(s): G93.40 - ENCEPHALOPATHY, UNSPECIFIED Status: Acute (4) Urinary tract infection Status: Acute Qualifiers: Urinary tract infection type: acute cystitis Hematuria presence: without hematuria Qualified Code(s): N30.00 - Acute cystitis without hematuria (5) Hypertension Code(s): I10 - ESSENTIAL (PRIMARY) HYPERTENSION Status: Chronic Qualifiers: Hypertension type: unspecified Qualified Code(s): I10 - Essential (primary ) hypertension - Plan Plan: Pt is a 78 yo M with PMHX of seizures x2 in 2017, CAD, HTN, HLD, and PVD with recent admission 09/16 for fall, rib fx, and UTI who presents for acute encephalopathy and seizure. #Acute Encephalopathy 2/2 Seizure -admission Dilantin Level: 6 (10-20), Given 1500 mg Dilantin in the ER (17:45 ) -home Dilantin dose was 400mg QD -Dilantin 500mg daily restarted @2100 on 10/05, per recs from Dr. Matt; will need to f/u outpatient -10/08 Dr. Matt recs: continue haldol at night for agitation, continue dilantin at current dosage, EEG today -Dilantin level 10/06: 16.8 (therapeutic) -Seizure precautions -Bedside swallow eval: mechanical soft, no bread, extra sauce/gravy -Q4H neuro checks -Patient continues to have periods of severe agitation: was on scheduled Hydroxyzine 50mg PO QD started on 10/06 in AM, with 25mg Hydroxyzine Q6H PRN and Seroquel 50 mg QHS 10/06, discontinued 10/08 and switched to haldol -PT/OT consult on board, difficult assessments so far 2/2 patient agitation -original assessment, PT rec rehab vs [facility] -Case Management consult, [facility] yesterday 10/08 # UTI-treated -UA: Turbid, 500 leukocytes, >50 WBC, 4+ Kathrine -Given 2 g of Rocephin in ER (18:33 10/04), Rocephin total x 2 doses and discontinued on 10/06 with transition to PO Ciprofloxacin 500 mg -UCx positive for E. Coli, pansensitive -Last UTI in June 2018 was E coli pansensitive -Had 4 total days of abx, cipro discontinued 10/08 to try to decrease medications to assist with delirium # HTN -BP: 130s-150s/80s-90s -Continue home meds: Metoprolol, HCTZ -Will monitor vitals # HLD -Continue home med: Lipitor 80 mg # PVD -Continue home med: Cilostazol Diet: Heart Healthy DVT Prophylaxis: Lovenox GI Prophylaxis: Continue home Prilosec Precautions: Seizure Code Status: FULL Dispo: Tele obs, on 500mg Dilantin for seizure prevention and haldol for agitation. EEG today. Case Management consulted for discharge planning to rehab vs swingbed facility.
[2018-10-09] MEDS: Ubidecarenone 50 MG CAP PO SCH (08:40)
[2018-10-09] MEDS: Hydrochlorothiazide 25 MG TAB PO SCH (08:40)
[2018-10-09] MEDS: Metoprolol Tartrate 50 MG TAB PO SCH ×2 (08:41→20:39)
[2018-10-09] MEDS: Cilostazol 100 MG TAB PO SCH ×2 (08:41→16:12)
[2018-10-09] MEDS: Enoxaparin Sodium 40 MG/0.4 ML SYRINGE SC SCH (08:43)
--- NOTE | 2018-10-09 11:58 | PRG ---
DATE OF SERVICE: 10/09/2018 Mr. Reed is sitting quietly in bed and is not agitated. We had a long discussion with his about his condition, which seems to be improving. It is evident that his confusional state preexisted before his fall. However, once he fell and sustained injuries and went into rehab, he became much more confused. Likely, this is waxing and waning delirium. However, since he does have a seizure disorder, there remains the possibility that seizures could be playing a role in this as well. Dr. Matt has seen the patient and has ordered another EEG to see if any activity is demonstrated. In the event, clinically, he is improving and the Haldol seems to control his agitated state without overly sedating him. Job ID: [id number]
--- NOTE | 2018-10-09 13:56 | EEG ---
Referring Physician: Danyelle MONZON EEG # [id number] TEST TYPE: ROUTINE PORTABLE INPATIENT REPORT: AN EEG USING THE INTERNATIONAL TEN-TWENTY SYSTEM OF ELECTRODE PLACEMENT WAS PERFORMED. The best waking background is a 8 hertz alpha frequency. This is poorly maintained and theta frequencies are the dominant background. Muscle and movement artifact were present during this study. No epileptiform features were present. Photic stimulation was unremarkable. IMPRESSION: THIS IS AN ABNORMAL STUDY FOR THE FINDINGS OF DIFFUSE SLOWING CONSISTENT WITH A DIFFUSE ENCEPHALOPATHIC PROCESS. NO EPILEPTIFORM ACTIVITY WAS WITNESSED. Tree Scout: [email or web address] Web Developer: [email or web address] AVENDAÑO
[2018-10-09] MEDS: Atorvastatin Calcium 40 MG TAB PO SCH (20:39)
[2018-10-10] MEDS: Haloperidol Lactate 5 MG/ML VIAL IM PRN (02:28)
--- NOTE | 2018-10-10 05:11 | PDOC.FM ---
- Subjective Subjective: PT saw patient yesterday and stated that patient has good rehab potential, with daily PT recommended. EEG yesterday showed diffuse slowing c/w diffuse encephalopathic process, no epileptiform activity was witnessed. Sitter reports that overnight patient was agitated and restless, with minimal sleeping. He received 1 dose of haldol early this morning and he reportedly continued to be agitated. - Objective Vital Signs & Weight: Vital Signs (12 hours) Temp Pulse Resp BP Pulse Ox 10/10/18 04:00 98 F 80 20 123/82 95 10/10/18 00:00 98.3 F 89 20 133/78 92 L 10/09/18 20:00 98.8 F 82 20 136/87 95 Weight Weight 91.762 kg I&O: 10/08/18 10/09/18 10/10/18 06:59 06:59 06:59 Intake Total 1420 1140 960 Output Total 600 Balance 820 1140 960 Result Diagrams: 10/08/18 04:27 10/08/18 04:27 EKG Reviewed by me: Yes (Sinus 70s-80s) Radiology: EEG: diffuse slowing, no epileptiform activity noticed Phys Exam - Physical Examination Restless, exam difficult 2/2 patient agitation HEENT: moist MMs, sclera anicteric Neck: supple, full ROM Respiratory: clear to auscultation bilateral Cardiovascular: RRR Musculoskeletal: pulses present Neurological: moves all 4 limbs not oriented, agitated Skin: normal turgor, cap refill <2 seconds Dx/Plan (1) HLD (hyperlipidemia) Code(s): E78.5 - HYPERLIPIDEMIA, UNSPECIFIED Status: Acute (2) PVD (peripheral vascular disease) Code(s): I73.9 - PERIPHERAL VASCULAR DISEASE, UNSPECIFIED Status: Acute (3) Acute encephalopathy Code(s): G93.40 - ENCEPHALOPATHY, UNSPECIFIED Status: Acute (4) Urinary tract infection Status: Acute Qualifiers: Urinary tract infection type: acute cystitis Hematuria presence: without hematuria Qualified Code(s): N30.00 - Acute cystitis without hematuria (5) Hypertension Code(s): I10 - ESSENTIAL (PRIMARY) HYPERTENSION Status: Chronic Qualifiers: Hypertension type: unspecified Qualified Code(s): I10 - Essential (primary ) hypertension (6) Delirium Code(s): R41.0 - DISORIENTATION, UNSPECIFIED Status: Acute - Plan Plan: Pt is a 78 yo M with PMHX of seizures x2 in 2017, CAD, HTN, HLD, and PVD with recent admission 09/16 for fall, rib fx, and UTI who presents for acute encephalopathy and seizure. #Acute Encephalopathy/Delirium 2/2 Seizure -admission Dilantin Level: 6 (10-20), Given 1500 mg Dilantin in the ER (17:45 ) -home Dilantin dose was 400mg QD -Dilantin 500mg daily restarted @2100 on 10/05, per recs from Dr. Matt; will need to f/u outpatient -10/08 Dr. Matt recs: continue haldol at night for agitation, continue dilantin at current dosage, EEG 10/09 -EEG: diffuse slowing c/w diffuse encephalopathic process, no epileptiform activity was witnessed, appreciate recs -Dilantin level 10/06: 16.8 (therapeutic) -Seizure precautions -Bedside swallow eval: mechanical soft, no bread, extra sauce/gravy -Q4H neuro checks -Patient continues to have periods of severe agitation: was on scheduled Hydroxyzine 50mg PO QD started on 10/06 in AM, with 25mg Hydroxyzine Q6H PRN and Seroquel 50 mg QHS 10/06, discontinued 10/08 and switched to haldol -consider increasing haldol if needed for agitation -PT/OT consult on board, difficult assessments so far 2/2 patient agitation -original assessment, PT rec rehab vs [facility] -Case Management consult, [facility] to [facility] yesterday 10/08 -PT saw patient yesterday, noted that he has good rehab potential, would require daily PT # UTI-treated -UA: Turbid, 500 leukocytes, >50 WBC, 4+ Kathrine -Given 2 g of Rocephin in ER (18:33 10/04), Rocephin total x 2 doses and discontinued on 10/06 with transition to PO Ciprofloxacin 500 mg -UCx positive for E. Coli, pansensitive -Last UTI in June 2018 was E coli pansensitive -Had 4 total days of abx, cipro discontinued 10/08 to try to decrease medications to assist with delirium # HTN -BP: 120s-130s/70s-80s -Continue home meds: Metoprolol, HCTZ -Will monitor vitals # HLD -Continue home med: Lipitor 80 mg # PVD -Continue home med: Cilostazol Diet: Heart Healthy DVT Prophylaxis: Lovenox GI Prophylaxis: Continue home Prilosec Precautions: Seizure Code Status: FULL Dispo: Tele obs, on 500mg Dilantin for seizure prevention and haldol for agitation. Neuro recs. Case Management consulted for discharge planning to rehab vs swingbed facility.
[2018-10-10] MEDS: Enoxaparin Sodium 40 MG/0.4 ML SYRINGE SC SCH (08:43)
[2018-10-10] MEDS: Ubidecarenone 50 MG CAP PO SCH (08:43)
[2018-10-10] MEDS: Metoprolol Tartrate 50 MG TAB PO SCH ×2 (08:43→20:31)
[2018-10-10] MEDS: Cilostazol 100 MG TAB PO SCH ×2 (08:43→16:25)
[2018-10-10] MEDS: Hydrochlorothiazide 25 MG TAB PO SCH (08:43)
[2018-10-10] MEDS ORDERED: Haloperidol Lactate 5 MG/ML VIAL IM PRN (08:52)
--- NOTE | 2018-10-10 11:53 | PRG ---
DATE OF SERVICE: 10/10/2018 Mr. Reed is sitting quietly in bed, in no distress. He did have a "bad night," in that he became again confused and agitated. He has had rather a large workup and I believe he likely has an underlying dementia causing exacerbated by delirium secondary to his multiple environmental changes over the last several weeks. I think it is best to again continually reorient him and use Haldol judiciously to control his agitation. Clinically, there have been no subjective changes in the last several days. Job ID: [id number]
--- NOTE | 2018-10-10 12:42 | PQF ---
YONATAN OJEDA JR, NIKKI, MD *r [id number] CLINICAL DOCUMENTATION IMPROVEMENT CLARIFICATION FORM: ICD-10 Updated PLEASE DO AN ADDENDUM TO THE PROGRESS NOTE WITH ANY DOCUMENTATION UPDATES OR ADDITIONS AND CARRY THROUGH TO DC SUMMARY. THANK YOU. DATE: 10/10/2018 ATTN:DR. Shamika OLSEN Please exercise your independent, professional judgment in responding to the clarification form. Clinical indicators are provided on the bottom of this form for your review. Please check appropriate box(s): [x] Hyponatremia stable, not worrisome at this time. Rec added sodium in current note [ ] Hyponatremia due to SIADH (Syndrome of Inappropriate Secretion of Antidiuretic Hormone) [ ] Other diagnosis [ ] Unable to determine In addition, please specify: Present on Admission (POA): [ ] Yes [x] No [ ] Unable to determine CLINICAL INDICATORS - SIGNS / SYMPTOMS / LABS 10/06 SODIUM 133 10/07 SODIUM 130 10/08 SODIUM 130 RISK: DX UTI, SEIZURE , ACUTE ENCEPHALOPATHY ( H & P/ SANDERS) 10/04 TREATMENTS: SERIAL BASEMET LABS (10/06-10/08) THANK YOU! CHRISTOFER (This form is maintained as a part of the permanent medical record) 2014 [employer] All Rights Reserved [email or web address] [phone] MTDD
--- NOTE | 2018-10-10 13:02 | PQF ---
YONATAN OJEDA JR, NIKKI, MD *r [id number] [facility] – [id number] CLINICAL DOCUMENTATION IMPROVEMENT CLARIFICATION FORM: ICD-10 Updated PLEASE DO AN ADDENDUM TO THE PROGRESS NOTE WITH ANY DOCUMENTATION UPDATES OR ADDITIONS AND CARRY THROUGH TO DC SUMMARY. THANK YOU. DATE: 10/10/18 ATTN:DR. Josué OLSEN Please exercise your independent, professional judgment in responding to the clarification form. Clinical indicators are provided on the bottom of this form for your review. Please check appropriate box(s): Acute Encephalopathy: Etiology: [ ] Hypertensive [ ] Metabolic [ ] Toxic [ ] Hepatic with Coma [ ] Hepatic w/o Coma [ ] Hypoxic [ ] Septic [ ] Drug induced: [ ] Unspecified [ ] in the setting of underlying dementia [ ] Other (please specify) [x] Transient Alteration of Awareness [x] Other diagnosis _seizure-induced [ ] Unable to determine In addition, please specify: Present on Admission (POA): [x] Yes [ ] No [ ] Unable to determine For continuity of documentation, please document condition throughout progress notes and discharge summary. Thank You. CLINICAL INDICATORS - SIGNS / SYMPTOMS / LABS 10/04 H & P ( TOMMY) A/P : 1) ACUTE ENCEPHALOPATHY 2/2 SEIZURE 10/05-10/07 PN (DUSTIN) A/P: 1) ACUTE ENCEPHALOPATHY 2/2 SEIZURE 10/08 -10/09 PN (RAÚL) PATIENT ALTERED THIS MORNING, A&O X 0. A/P: 3) ACUTE ENCEPHALOPATHY 10/10 PN (RAÚL) SITTER REPORTS THAT OVERNIGHT PT WAS AGITATED AND RESTLESS, WITH MINIMAL SLEEPING. HE RECEIVED 1 DOSE OF HALDOL EARLY THIS MORNING AND HE REPORTEDLY CONTINUED TO BE AGITATED. A/P: 3) ACUTE ENCEPHALOPATHY RISK: ADVANCED AGE (75) (H&P/ SANDERS) 10/04 SEIZURE DISORDER, ALTERED MENTAL STATUS, UTI (H&P/ TOMMY) 10/04 TREATMENTS: NEUROLOGY CONSULT 10/05 NEURO CHECKS EVERY 4 HOURS (PN /DUSTIN) 10/05 THANK YOU! CHRISTOFER (This form is maintained as a part of the permanent medical record) 2014 [employer]. All Rights Reserved [email or web address] [phone] [facility]
[2018-10-10] MEDS: Atorvastatin Calcium 40 MG TAB PO SCH (20:31)
[2018-10-11] MEDS ORDERED: Haloperidol Lactate 5 MG/ML VIAL IM SCH (00:30)
[2018-10-11] MEDS ORDERED: Ziprasidone 20 MG VIAL IM PRN (01:32)
[2018-10-11] MEDS ORDERED: Sterile Water 10 ML VIAL FS PRN (01:34)
--- NOTE | 2018-10-11 05:12 | PDOC.FM ---
- Subjective Subjective: Patient became agitated overnight and began to remove his clothing. He was given 2 doses haldol and 1 dose geodon. He was sleeping soundly during evaluation this morning. Per reports he becomes more agitated at night with a waxing and waning process, consistent with sundowning/delirium. - Objective Vital Signs & Weight: Vital Signs (12 hours) Temp Pulse Resp BP Pulse Ox 10/11/18 00:00 97.8 F 76 16 106/72 93 L 10/10/18 20:00 99.4 F 90 20 153/83 H 95 Weight Weight 91.762 kg I&O: 10/09/18 10/10/18 10/11/18 06:59 06:59 06:59 Intake Total 1140 1450 720 Balance 1140 1450 720 Result Diagrams: 10/11/18 06:44 10/11/18 06:44 EKG Reviewed by me: Yes (Sinus 70s-80s, occasional PVCs) Phys Exam - Physical Examination Constitutional: NAD Neck: supple, full ROM Respiratory: no wheezing, clear to auscultation bilateral Cardiovascular: RRR, no significant murmur Gastrointestinal: soft, positive bowel sounds Musculoskeletal: no edema, pulses present Neurological: moves all 4 limbs Lymphatic: no nodes Deviation from normal: Sleeping during evaluation, but reportedly agitated overnight Skin: normal turgor, cap refill <2 seconds Dx/Plan (1) HLD (hyperlipidemia) Code(s): E78.5 - HYPERLIPIDEMIA, UNSPECIFIED Status: Acute (2) PVD (peripheral vascular disease) Code(s): I73.9 - PERIPHERAL VASCULAR DISEASE, UNSPECIFIED Status: Acute (3) Acute encephalopathy Code(s): G93.40 - ENCEPHALOPATHY, UNSPECIFIED Status: Acute (4) Urinary tract infection Status: Acute Qualifiers: Urinary tract infection type: acute cystitis Hematuria presence: without hematuria Qualified Code(s): N30.00 - Acute cystitis without hematuria (5) Hypertension Code(s): I10 - ESSENTIAL (PRIMARY) HYPERTENSION Status: Chronic Qualifiers: Hypertension type: unspecified Qualified Code(s): I10 - Essential (primary ) hypertension (6) Delirium Code(s): R41.0 - DISORIENTATION, UNSPECIFIED Status: Acute (7) Hyponatremia Code(s): E87.1 - HYPO-OSMOLALITY AND HYPONATREMIA Status: Acute - Plan Plan: Pt is a 78 yo M with PMHX of seizures x2 in 2017, CAD, HTN, HLD, and PVD with recent admission 09/16 for fall, rib fx, and UTI who presents for acute encephalopathy and seizure. #Acute Encephalopathy/Delirium 2/2 Seizure -admission Dilantin Level: 6 (10-20), Given 1500 mg Dilantin in the ER (17:45 ) -home Dilantin dose was 400mg QD -Dilantin 500mg daily restarted @2100 on 10/05, per recs from Dr. Matt; will need to f/u outpatient -10/08 Dr. Matt recs: continue haldol at night for agitation, continue dilantin at current dosage, EEG 10/09 -EEG: diffuse slowing c/w diffuse encephalopathic process, no epileptiform activity was witnessed, appreciate recs -Dilantin level 10/06: 16.8 (therapeutic) -Seizure precautions -Bedside swallow eval: mechanical soft, no bread, extra sauce/gravy -Q4H neuro checks -Patient continues to have periods of severe agitation: was on scheduled Hydroxyzine 50mg PO QD started on 10/06 in AM, with 25mg Hydroxyzine Q6H PRN and Seroquel 50 mg QHS 10/06, discontinued 10/08 and switched to haldol -haldol increased yesterday to 5mg if needed for agitation -required 2 doses last night; added 10mg geodon prn for agitation -PT/OT consult on board, difficult assessments so far 2/2 patient agitation -original assessment, PT rec rehab vs [facility] -Case Management consult, referral sent to [facility] 10/08 -PT noted that he has good rehab potential, would require daily PT -pending rehab placement # UTI-treated -UA: Turbid, 500 leukocytes, >50 WBC, 4+ Kathrine -Given 2 g of Rocephin in ER (18:33 10/04), Rocephin total x 2 doses and discontinued on 10/06 with transition to PO Ciprofloxacin 500 mg -UCx positive for E. Coli, pansensitive -Last UTI in June 2018 was E coli pansensitive -Had 4 total days of abx, cipro discontinued 10/08 to try to decrease medications to assist with delirium # HTN -BP: 100s-150s/70s-80s -Continue home meds: Metoprolol, HCTZ -Will monitor vitals # HLD -Continue home med: Lipitor 80 mg # PVD -Continue home med: Cilostazol #Hyponatremia -Sodium 131 today, encourage added salt on foods Diet: Heart Healthy DVT Prophylaxis: Lovenox GI Prophylaxis: Continue home Prilosec Precautions: Seizure Code Status: FULL Dispo: Tele obs, on 500mg Dilantin for seizure prevention and haldol for agitation. Neuro recs. Case Management consulted for discharge planning to rehab vs swingbed facility.
[2018-10-11 06:51] LABS: #Basophils 0.1 thou/uL (0.0-0.2); #Eosinphils 0.3 thou/uL (0.0-0.7); #Neutrophils 3.4 thou/uL (1.40-6.50); %Basophils 0.9 % (0.0-1.0); %Eosinophils 4.5 % (0.0-10.0); %Lymphocytes 29.9 % (21.0-51.0); %Monocytes 14.4 % (0.0-10.0); %Neutrophils 50.3 % (42.0-75.0); Hemoglobin 14.5 g/dL (14.0-18.0); Mean Corpuscular HGB CONC 35.4 g/dL (32.0-36.0); Mean Corpuscular Volume 95.9 fL (78.0-98.0); Mean Platelet Volume 7.6 fL (7.4-10.4); Platelet Count 210 thou/uL (130-400); RBC Distribution Width 11.9 % (11.5-14.5); Red Blood Cell (RBC) Count 4.28 mill/uL (4.70-6.10); White Blood Cell (WBC) Count 6.7 thou/uL (4.8-10.8)
[2018-10-11 07:30] LABS: ALT (SGPT) 16 U/L (8-55); AST (SGOT) 28 U/L (5-34); Albumin 4.1 g/dL (3.4-4.8); Alkaline Phosphatase 161 U/L (40-150); Anion Gap 13 mmol/L (10-20); BUN (Urea Nitrogen) 25 mg/dL (8.4-25.7); Bilirubin, Total 0.6 mg/dL (0.2-1.2); Calc. Creatinine Clearance 106 mL/min (70-130); Calcium 9.9 mg/dL (7.8-10.44); Carbon Dioxide 22 mmol/L (23-31); Chloride 99 mmol/L (98-107); Estimated GFR-MDRD Greater than 90; Glucose 87 mg/dL (83-110); Potassium 3.4 mmol/L (3.5-5.1); Protein, Total 7.1 g/dL (5.8-8.1); Sodium 131 mmol/L (136-145)
[2018-10-11] MEDS: Enoxaparin Sodium 40 MG/0.4 ML SYRINGE SC SCH (09:23)
[2018-10-11] MEDS: Hydrochlorothiazide 25 MG TAB PO SCH (09:23)
[2018-10-11] MEDS: Ubidecarenone 50 MG CAP PO SCH (09:23)
[2018-10-11] MEDS: Cilostazol 100 MG TAB PO SCH ×2 (09:23→16:25)
[2018-10-11] MEDS: Metoprolol Tartrate 50 MG TAB PO SCH (09:23)
--- NOTE | 2018-10-11 11:33 | PRG ---
DATE OF SERVICE: 10/11/2018 Mr. Reed is awake and alert this morning. He is confused, but otherwise cheerful. He is still having intermittent bouts of delirium, which I feel will continue for the rest of his life. We have added some Geodon for agitation as he had another episode last night. Job ID: [id number]
[2018-10-11 17:04] VITALS: BP 142/69; TEMP 98
--- NOTE | 2018-10-12 18:06 | DIS ---
DATE OF ADMISSION: 10/07/2018 DATE OF DISCHARGE: 10/11/2018 ADMITTING RESIDENT: Peter Ohara MD ADMITTING ATTENDING: Fabio Khan MD DISCHARGE RESIDENT: Magui Willett MD DISCHARGE ATTENDING: Mumtaz Carballo MD CONSULT: Neurology - Dr. Matt. PROCEDURES: EEG: Diffuse slowing consistent with a diffuse encephalopathic process. No epileptiform activity was witnessed. IMAGING STUDIES: Brain CT: Stable findings (bilateral atrophy and chronic white matter ischemic change), no mass or bleed. PRIMARY DIAGNOSES: Acute encephalopathy due to seizure, delirium with likely underlying dementia, urinary tract infection. SECONDARY DIAGNOSES: Hypertension, hyperlipidemia, peripheral vascular disease , and hyponatremia. DISCHARGE MEDICATIONS: 1. 80 mg atorvastatin p.o. at bedtime. 2. 1000 mcg biotin p.o. daily. 3. 100 mg cilostazol p.o. b.i.d. - a.c. 4. 25 mg hydrochlorothiazide p.o. daily. 5. 50 mg metoprolol succinate p.o. b.i.d. 6. 20 mg omeprazole p.o. daily. 7. 500 mg phenytoin p.o. at bedtime. 8. 100 mg CoQ10 p.o. daily. 9. 10 mg Geodon IM q.2 hours p.r.n. DISCONTINUED MEDICATIONS: 1. Haldol. 2. Ceftriaxone. 3. Ciprofloxacin. 4. Hydroxyzine. 5. Seroquel. HISTORY OF PRESENT ILLNESS AND HOSPITAL COURSE: The patient was previously admitted on September 16, 2018, and found to have 5 cracked ribs, punctured lung, and was treated for UTI. He was discharged on September 19 to [facility] and was there until 10/01/2018. He was discharged with home health, speech and physical therapy. According to the patient's , he has been altered since he came over to rehab. When he presented for his most recent admission, he had been working with the physical therapist, when he went to use the bathroom and while going to sit down , he had a grand mal seizure. The patient has a known history of seizures and was previously treated with 400 mg of Dilantin daily. In the ED, he was found to have a subtherapeutic Dilantin level of 6.5 (normal: 10 to 20) and a prolactin level of 33. He was also found to have a white blood cell count of 11.3 with the UA positive for white blood cells, bacteria, and leukocyte. He was started on Rocephin and admitted for acute encephalopathy due to a seizure and subsequent treatment for the UTI. He received 2 days of Rocephin and 3 days of Cipro in total for the UTI. Dr. Matt was consulted during his hospitalization and recommended increasing the Dilantin to 500 mg daily. He was also suspicious of many seizures and conducted an EEG, see above. Throughout the hospitalization, the patient appeared to have delirium with a waxing and waning presentation of awareness and agitation. He was started on a regimen of hydroxyzine and Seroquel, but he continued to have agitation on this. He was switched to p.r.n. Haldol, with later addition of p.r.n. Geodon in order to help reduce his agitation, which mainly occurred at night. He was found to have mild hyponatremia during his hospitalization that remained stable with sodium of 130 and was not treated at this time. During his stay, he was evaluated by Speech, PT, and OT. Speech recommended rehab versus swing bed, speech therapy advised. It was also recommended by OT and PT to have both at a rehab center versus swing bed. He was not accepted to a rehab facility, but was accepted to transfer to swing bed for further therapy. He will likely continue to have delirium until he can get to the location which is more familiar and constant. However, the rehab potential continued to be evaluated as "good" throughout repeat assessments during his hospitalization. DISPOSITION: Guarded, delirium with likely underlying dementia. DISCHARGE INSTRUCTIONS: 1. Location: [facility]. 2. Diet: Heart healthy. 3. Activity: As tolerated. 4. Followup: With PCP when discharged from [facility]. Job ID: [id number] [facility]
== END 2018-10-11 17:50 | DRG 101 ==
LOC: ERS 15:56 → 2SE 21:32 → OBSVTOIN 10-07 10:30
PROVIDERS: ADMIT Emergency Medicine; ATTEND Emergency Medicine
DX: G40.409 Other generalized epilepsy and epileptic syndromes, not intractable, without status epilepticus (principal); E87.1 Hypo-osmolality and hyponatremia; N30.00 Acute cystitis without hematuria; I25.10 Atherosclerotic heart disease of native coronary artery without angina pectoris; I10 Essential (primary) hypertension; E78.5 Hyperlipidemia, unspecified; I73.9 Peripheral vascular disease, unspecified; K21.9 Gastro-esophageal reflux disease without esophagitis; G62.9 Polyneuropathy, unspecified; B96.20 Unspecified Escherichia coli [E. coli] as the cause of diseases classified elsewhere; Z88.8 Allergy status to other drugs, medicaments and biological substances; Z90.89 Acquired absence of other organs; Z95.5 Presence of coronary angioplasty implant and graft; Z85.46 Personal history of malignant neoplasm of prostate; Z87.891 Personal history of nicotine dependence
CPT/HCPCS: 36415; 51701; 70450; 80053; 80185; 81003; 81015; 82306; 82550; 82607; 82746; 83735; 84146; 84443; 85025; 86780; 86803; 87040; 87077; 87086; 87186; 87389; 93005; 93010; 94760; 95816; 95819; 96365; 96368; J0696; J1630; J1650; J2060; J3410; J3480; J3486; J3490; Q2009

== ENCOUNTER 2020-07-24 21:09 | Inpatient (IN) | payer MEDICARE, OTHER ==
[2020-07-24] MEDS ORDERED: Acetaminophen 325 MG TAB PO PRN (23:24)
[2020-07-24 23:44] VITALS: BMI 30.2
[2020-07-24] MEDS ORDERED: Potassium Chloride 20 MEQ TAB PO SCH (23:45)
[2020-07-25] MEDS ORDERED: Lactated Ringer's 1,000 ML IV SCH (00:45)
[2020-07-25] MEDS ORDERED: Melatonin 3 MG TAB PO PRN (01:04)
[2020-07-25] MEDS: Cilostazol 100 MG TAB PO SCH ×2 (06:32→18:07)
[2020-07-25 06:49] LABS: #Lymphocytes 0.7 thou/uL (1.20-3.40); #Monocytes 0.8 thou/uL (0.11-0.59); #Neutrophils 7.7 thou/uL (1.40-6.50); %Basophils 0.2 % (0.0-1.0); %Eosinophils 0.3 % (0.0-10.0); %Lymphocytes 7.4 % (21.0-51.0); %Neutrophils 83.1 % (42.0-75.0); Hemoglobin 14.2 g/dL (14.0-18.0); Mean Corpuscular HGB CONC 34.1 g/dL (32.0-36.0); Mean Corpuscular Hemoglobin 34.5 pg (27.0-31.0); Mean Platelet Volume 8.7 fL (7.4-10.4); Platelet Count 135 thou/uL (130-400); RBC Distribution Width 12.6 % (11.5-14.5); Red Blood Cell (RBC) Count 4.11 mill/uL (4.70-6.10); White Blood Cell (WBC) Count 9.3 thou/uL (4.8-10.8)
[2020-07-25 06:57] LABS: Anion Gap 16 mmol/L (10-20); BUN (Urea Nitrogen) 11 mg/dL (8.4-25.7); Calc. Creatinine Clearance 98 mL/min (70-130); Calcium 8.2 mg/dL (7.8-10.44); Carbon Dioxide 19 mmol/L (23-31); Chloride 103 mmol/L (98-107); Glucose 106 mg/dL (83-110); Potassium 3.7 mmol/L (3.5-5.1); Sodium 134 mmol/L (136-145)
[2020-07-25 08:58] LABS: SARS-CoV-2 NAA Rapid Test Not Detected (NotDetected)
[2020-07-25] MEDS ORDERED: Vancomycin 1 GM in Premix Bag 1 BAG IVPB SCH (09:00)
[2020-07-25] MEDS ORDERED: Vancomycin 1.5 GM in Premix Bag 1 BAG IVPB SCH (09:00)
[2020-07-25] MEDS ORDERED: Enoxaparin Sodium 40 MG/0.4 ML SYRINGE SC SCH (09:00)
[2020-07-25] MEDS: Aspirin Chewable 81 MG TAB PO SCH (09:01)
[2020-07-25] MEDS: Rivaroxaban 10 MG TAB PO SCH (09:01)
[2020-07-25] MEDS: Lactinex Tablet PO SCH (09:01)
[2020-07-25] MEDS: Hydrochlorothiazide 25 MG TAB PO SCH (09:01)
[2020-07-25] MEDS: levETIRAcetam 500 MG TAB PO SCH ×2 (09:02→19:56)
[2020-07-25] MEDS ORDERED: Rivaroxaban 10 MG TAB ONE (09:06)
[2020-07-25] MEDS ORDERED: cefTRIAXone\\ROCEPHIN 1 GM in Sodium Chloride 0.9% 100 ML IVPB SCH (21:00)
[2020-07-25] MEDS ORDERED: Atorvastatin Calcium 40 MG TAB PO SCH (21:00)
[2020-07-26 05:23] LABS: #Eosinphils 0.1 thou/uL (0.0-0.7); #Lymphocytes 1.7 thou/uL (1.20-3.40); #Monocytes 1.2 thou/uL (0.11-0.59); %Basophils 0.5 % (0.0-1.0); %Eosinophils 1.2 % (0.0-10.0); %Monocytes 14.6 % (0.0-10.0); %Neutrophils 62.6 % (42.0-75.0); Hemoglobin 14.2 g/dL (14.0-18.0); Mean Corpuscular HGB CONC 33.8 g/dL (32.0-36.0); Mean Corpuscular Hemoglobin 33.9 pg (27.0-31.0); Mean Platelet Volume 8.5 fL (7.4-10.4); Platelet Count 135 thou/uL (130-400); RBC Distribution Width 12.6 % (11.5-14.5); Red Blood Cell (RBC) Count 4.19 mill/uL (4.70-6.10)
[2020-07-26 05:40] LABS: Anion Gap 14 mmol/L (10-20); BUN (Urea Nitrogen) 11 mg/dL (8.4-25.7); Calc. Creatinine Clearance 98 mL/min (70-130); Calcium 8.6 mg/dL (7.8-10.44); Carbon Dioxide 22 mmol/L (23-31); Chloride 99 mmol/L (98-107); Glucose 106 mg/dL (83-110); Potassium 3.5 mmol/L (3.5-5.1); Sodium 131 mmol/L (136-145)
[2020-07-26] MEDS: Cilostazol 100 MG TAB PO SCH (07:11)
[2020-07-26] MEDS: Hydrochlorothiazide 25 MG TAB PO SCH (08:56)
[2020-07-26] MEDS: Lactinex Tablet PO SCH (08:56)
[2020-07-26] MEDS: levETIRAcetam 500 MG TAB PO SCH (08:56)
[2020-07-26] MEDS: Aspirin Chewable 81 MG TAB PO SCH (08:56)
[2020-07-26] MEDS: Rivaroxaban 10 MG TAB PO SCH (08:57)
[2020-07-26 11:43] VITALS: BP 108/68; TEMP 97.6
== END 2020-07-26 14:10 | disposition home or self-care (01) | DRG 872 ==
LOC: SURG A 21:09
PROVIDERS: ADMIT Family Medicine; ATTEND Family Medicine
DX: A41.9 Sepsis, unspecified organism (principal); N39.0 Urinary tract infection, site not specified; Z20.822 Contact with and (suspected) exposure to COVID-19; E87.6 Hypokalemia; I10 Essential (primary) hypertension; E78.5 Hyperlipidemia, unspecified; K21.9 Gastro-esophageal reflux disease without esophagitis; I73.9 Peripheral vascular disease, unspecified; G40.909 Epilepsy, unspecified, not intractable, without status epilepticus; F17.210 Nicotine dependence, cigarettes, uncomplicated; I49.9 Cardiac arrhythmia, unspecified; Z85.46 Personal history of malignant neoplasm of prostate; Z86.73 Personal history of transient ischemic attack (TIA), and cerebral infarction without residual deficits; Z90.79 Acquired absence of other genital organ(s); Z87.440 Personal history of urinary (tract) infections; Z91.09 Other allergy status, other than to drugs and biological substances; Z79.899 Other long term (current) drug therapy; Z79.82 Long term (current) use of aspirin; Z79.02 Long term (current) use of antithrombotics/antiplatelets; Z79.52 Long term (current) use of systemic steroids; Z82.49 Family history of ischemic heart disease and other diseases of the circulatory system; Z95.818 Presence of other cardiac implants and grafts
CPT/HCPCS: 36415; 76770; 80048; 84145; 85025; J0696; J3490; U0002; U0003; U0005

== ENCOUNTER 2023-01-11 06:16 | Day surgery (SDC) | payer MEDICARE ==
[2023-01-10 11:30] VITALS: BMI 29.5
[2023-01-11 07:05] LABS: INR-International Normal Ratio 1.6; PTT 35.8 sec (22.9-36.1); Prothrombin Time 20.1 sec (12.0-14.7)
[2023-01-11] MEDS ORDERED: PROPOFOL 40 ML ONE (07:32)
== END 2023-01-11 09:37 | disposition home or self-care (01) ==
LOC: SDC 06:16
PROVIDERS: ATTEND Internal Medicine Cardiovascular Disease
PROC: B246ZZ4 Ultrasonography of Right and Left Heart, Transesophageal (ICD-10-PCS; principal; 2023-01-11)
DX: I48.11 Longstanding persistent atrial fibrillation (principal); I48.0 Paroxysmal atrial fibrillation; R04.0 Epistaxis; Z79.01 Long term (current) use of anticoagulants; Z79.899 Other long term (current) drug therapy
CPT/HCPCS: 36415; 85610; 85730; 93312; J2704

== ENCOUNTER 2023-02-17 20:47 | Inpatient (IN) | payer MEDICARE, OTHER ==
[2023-02-17 21:21] LABS: #Neutrophils 7.9 thou/uL (1.40-6.50); %Basophils 0.3 % (0.0-1.0); %Monocytes 9.6 % (0.0-10.0); %Neutrophils 78.5 % (42.0-75.0); Hematocrit 39.5 % (42.0-52.0); Hemoglobin 14.3 g/dL (14.0-18.0); Mean Corpuscular HGB CONC 36.2 g/dL (32.0-36.0); Mean Corpuscular Volume 96.6 fl (78.0-98.0); Mean Platelet Volume 9.9 fL (7.4-10.4); Platelet Count 136 10x3/uL (130-400); Red Blood Cell (RBC) Count 4.09 mill/uL (4.70-6.10)
[2023-02-17] MEDS ORDERED: Ondansetron PF 4 MG/2 ML Vial IVP PRN (21:31)
[2023-02-17] MEDS ORDERED: Ipratropium/Albuterol 3 ML NEB NEB PRN (21:31)
[2023-02-17 21:36] LABS: PTT 28.4 sec (22.9-36.1); Prothrombin Time 13.4 sec (12.0-14.7)
[2023-02-17 21:44] LABS: ALT (SGPT) 17 U/L (8-55); AST (SGOT) 20 U/L (5-34); Albumin 3.9 g/dL (3.4-4.8); Alkaline Phosphatase 92 U/L (40-110); Anion Gap 15 mmol/L (10-20); BUN (Urea Nitrogen) 16 mg/dL (8.4-25.7); Bilirubin, Total 1.3 mg/dL (0.2-1.2); Calc. Creatinine Clearance 0 mL/min (70-130); Calcium 8.7 mg/dL (7.8-10.44); Carbon Dioxide 23 mmol/L (23-31); Chloride 96 mmol/L (98-107); Estimated GFR 81; Globulin 2.8 g/dL (2.4-3.5); Glucose 100 mg/dL (83-110); Potassium 3.7 mmol/L (3.5-5.1); Protein, Total 6.7 g/dL (5.8-8.1); Sodium 130 mmol/L (136-145)
[2023-02-17 21:48] LABS: Troponin I 0.015 ng/mL (< 0.028)
[2023-02-17] MEDS ORDERED: Electrolyte Replacement Protocol 1 EACH IVPB PRN (23:34)
[2023-02-17] MEDS ORDERED: Acetaminophen 325 MG TAB PO PRN (23:34)
[2023-02-17] MEDS ORDERED: niCARdipine 25 MG in Sodium Chloride 0.9% 250 ML 250 ML IVPB PRN (23:34)
[2023-02-18 00:25] VITALS: BMI 28.8
[2023-02-18] MEDS ORDERED: levETIRAcetam 500 MG (5 mL) VIAL SLOW IVP SCH ×2 (00:45→21:00)
[2023-02-18] MEDS: Sodium Chloride 0.9% 1,000 ML IV SCH ×2 (01:00→21:23)
[2023-02-18] MEDS: Acetaminophen 500 MG TAB PO SCH ×4 (01:09→18:09)
[2023-02-18 07:43] LABS: #Monocytes 0.9 thou/uL (0.11-0.59); #Neutrophils 4.8 thou/uL (1.40-6.50); %Basophils 0.4 % (0.0-1.0); %Eosinophils 0.1 % (0.0-10.0); %Lymphocytes 15.2 % (21.0-51.0); %Monocytes 13.6 % (0.0-10.0); Hematocrit 39.7 % (42.0-52.0); Hemoglobin 13.9 g/dL (14.0-18.0); Mean Corpuscular Hemoglobin 34.2 pg (27.0-31.0); Mean Corpuscular Volume 97.5 fl (78.0-98.0); Mean Platelet Volume 10.1 fL (7.4-10.4); Platelet Count 149 10x3/uL (130-400); RBC Distribution Width 14.3 % (11.5-14.5); Red Blood Cell (RBC) Count 4.07 mill/uL (4.70-6.10); White Blood Cell (WBC) Count 6.9 10x3/uL (4.8-10.8)
[2023-02-18 07:58] LABS: PTT 30.1 sec (22.9-36.1); Prothrombin Time 13.6 sec (12.0-14.7)
[2023-02-18 08:18] LABS: Anion Gap 14 mmol/L (10-20); BUN (Urea Nitrogen) 13 mg/dL (8.4-25.7); Calc. Creatinine Clearance 98 mL/min (70-130); Calcium 8.7 mg/dL (7.8-10.44); Carbon Dioxide 21 mmol/L (23-31); Chloride 96 mmol/L (98-107); Estimated GFR 90; Glucose 105 mg/dL (83-110); Potassium 3.4 mmol/L (3.5-5.1); Sodium 128 mmol/L (136-145)
[2023-02-18] MEDS ORDERED: Potassium Chloride 20 MEQ in Premix 1 BAG IVPB SCH (08:30)
[2023-02-18] MEDS: Polyethylene Glycol 3350 17 GM Packet PO SCH (09:24)
[2023-02-18] MEDS: Amiodarone 200 MG TAB PO SCH ×2 (09:24→20:55)
[2023-02-18] MEDS: dilTIAZem CD 120 MG CAP PO SCH (09:24)
[2023-02-18] MEDS: Senokot S 8.6-50 MG TAB PO SCH ×2 (09:24→20:54)
[2023-02-18] MEDS: Famotidine/PF 20 mg/2ml Vial SLOW IVP SCH ×2 (09:24→20:55)
[2023-02-18] MEDS: Potassium Chloride 20 MEQ (100 mL) BAG ONE ×2 (09:25→09:32)
[2023-02-18] MEDS: Potassium Chloride 20 MEQ in Premix 1 BAG IVPB SCH ×2 (09:26→11:26)
[2023-02-18 18:00] LABS: Potassium 3.8 mmol/L (3.5-5.1)
[2023-02-18] MEDS: Atorvastatin Calcium 40 MG TAB PO SCH (20:55)
[2023-02-19] MEDS: Acetaminophen 500 MG TAB PO SCH ×4 (00:23→18:00)
[2023-02-19 03:05] LABS: Bacteria/HPF None Seen HPF (None Seen); Bilirubin Negative (Negative); Blood, Urine Negative (Negative); CAUTI Indications for Culture Alt mental st,lethar; Clarity Clear (Clear); Glucose, Urine (Dipstick) Normal (Negative); Ketone, Urine Negative (Negative); Leukocyte Negative Leu/uL (Negative); Nitrite Negative (Negative); Protein, Urine (Dipstick) Negative (Neg-Trace); RBC/HPF 0-3 HPF (0-3); Specific Gravity, Urine 1.018 (1.002-1.036); Squamous Epithelial 0-3 HPF (0-3); Urobilinogen Normal mg/dL (Less than 2); WBC/HPF 0-3 HPF (0-3); pH, Urine 6.5 (5.0-9.0)
[2023-02-19 03:10] LABS: Urine Culture Reflex No No
[2023-02-19 05:55] LABS: Magnesium 1.4 mg/dL (1.6-2.6); Phosphorus 3.1 mg/dL (2.3-4.7)
[2023-02-19] MEDS ORDERED: Magnesium Sulfate In Water 4 GM in Premix 1 BAG IVPB SCH ×2 (07:15)
[2023-02-19] MEDS: Polyethylene Glycol 3350 17 GM Packet PO SCH (09:21)
[2023-02-19] MEDS: Senokot S 8.6-50 MG TAB PO SCH ×2 (09:21→21:25)
[2023-02-19] MEDS: dilTIAZem CD 120 MG CAP PO SCH (09:21)
[2023-02-19] MEDS: Famotidine/PF 20 mg/2ml Vial SLOW IVP SCH (09:21)
[2023-02-19] MEDS: Amiodarone 200 MG TAB PO SCH ×2 (09:22→21:24)
[2023-02-19] MEDS: Sodium Chloride 1 GM TAB PO SCH ×2 (12:40→21:24)
[2023-02-19] MEDS: Sodium Chloride 0.9% 1,000 ML IV SCH ×2 (12:41→21:26)
[2023-02-19 13:08] LABS: Anion Gap 14 mmol/L (10-20); BUN (Urea Nitrogen) 13 mg/dL (8.4-25.7); Calc. Creatinine Clearance 104 mL/min (70-130); Calcium 9.1 mg/dL (7.8-10.44); Carbon Dioxide 19 mmol/L (23-31); Chloride 99 mmol/L (98-107); Estimated GFR 92; Glucose 94 mg/dL (83-110); Potassium 3.9 mmol/L (3.5-5.1); Sodium 128 mmol/L (136-145)
[2023-02-19] MEDS: Labetalol HCl 100 MG/20 ML VIAL SLOW IVP PRN (21:17)
[2023-02-19] MEDS: Atorvastatin Calcium 40 MG TAB PO SCH (21:24)
[2023-02-19] MEDS: levETIRAcetam 500 MG TAB PO SCH (21:24)
[2023-02-20] MEDS: Acetaminophen 500 MG TAB PO SCH ×5 (00:55→23:32)
[2023-02-20] MEDS: Sodium Chloride 1 GM TAB PO SCH ×3 (04:56→21:28)
[2023-02-20] MEDS: Sodium Chloride 0.9% 1,000 ML IV SCH (05:15)
[2023-02-20] MEDS: Labetalol HCl 100 MG/20 ML VIAL SLOW IVP PRN ×4 (05:18→23:33)
[2023-02-20 08:03] LABS: Anion Gap 9 mmol/L (10-20); BUN (Urea Nitrogen) 13 mg/dL (8.4-25.7); Calc. Creatinine Clearance 44 mL/min (70-130); Calcium 8.5 mg/dL (7.8-10.44); Carbon Dioxide 20 mmol/L (23-31); Chloride 102 mmol/L (98-107); Estimated GFR 93; Glucose 106 mg/dL (83-110); Magnesium 1.4 mg/dL (1.6-2.6); Phosphorus 3.4 mg/dL (2.3-4.7); Potassium 3.5 mmol/L (3.5-5.1); Sodium 127 mmol/L (136-145)
[2023-02-20] MEDS ORDERED: Magnesium 2 GM/50 ML(in water) 2 GM in Premix 1 BAG IVPB SCH (09:45)
[2023-02-20] MEDS: Polyethylene Glycol 3350 17 GM Packet PO SCH (09:56)
[2023-02-20] MEDS: Amiodarone 200 MG TAB PO SCH ×2 (09:57→21:28)
[2023-02-20] MEDS: Senokot S 8.6-50 MG TAB PO SCH ×2 (09:57→21:29)
[2023-02-20] MEDS: dilTIAZem CD 120 MG CAP PO SCH (09:57)
[2023-02-20] MEDS ORDERED: Magnesium Sulfate In Water 4 GM in Premix 1 BAG IVPB SCH (10:00)
[2023-02-20] MEDS ORDERED: Potassium Chloride 20 MEQ TAB PO SCH (14:00)
[2023-02-20] MEDS ORDERED: Electrolyte Replacement Protocol FS PRN (14:00)
[2023-02-20] MEDS: Atorvastatin Calcium 40 MG TAB PO SCH (21:28)
[2023-02-20] MEDS: levETIRAcetam 500 MG TAB PO SCH (21:28)
[2023-02-20 23:33] LABS: Potassium 3.8 mmol/L (3.5-5.1)
[2023-02-21] MEDS: Sodium Chloride 1 GM TAB PO SCH ×3 (04:23→19:43)
[2023-02-21 04:55] LABS: Magnesium 1.8 mg/dL (1.6-2.6)
[2023-02-21] MEDS: Acetaminophen 500 MG TAB PO SCH ×2 (05:20→12:33)
[2023-02-21 07:50] LABS: Anion Gap 15 mmol/L (10-20); BUN (Urea Nitrogen) 16 mg/dL (8.4-25.7); Calc. Creatinine Clearance 99 mL/min (70-130); Calcium 8.9 mg/dL (7.8-10.44); Carbon Dioxide 15 mmol/L (23-31); Chloride 106 mmol/L (98-107); Estimated GFR 93; Glucose 103 mg/dL (83-110); Potassium 3.7 mmol/L (3.5-5.1); Sodium 132 mmol/L (136-145)
[2023-02-21] MEDS: dilTIAZem CD 120 MG CAP PO SCH (08:50)
[2023-02-21] MEDS: Polyethylene Glycol 3350 17 GM Packet PO SCH (08:50)
[2023-02-21] MEDS: Amiodarone 200 MG TAB PO SCH ×2 (08:50→21:36)
[2023-02-21] MEDS: Senokot S 8.6-50 MG TAB PO SCH ×2 (08:50→21:35)
[2023-02-21] MEDS ORDERED: Sodium Bicarbonate 150 MEQ in Dextrose 5% in Water 1,000 ML IV SCH (09:00)
[2023-02-21] MEDS ORDERED: Magnesium 2 GM/50 ML(in water) 2 GM in Premix 1 BAG IVPB SCH (09:00)
[2023-02-21] MEDS ORDERED: FLU VACC QS2023(65UP)/MF59C/PF 60 MCG/0.5 ML SYRINGE IM ONE (09:00)
[2023-02-21] MEDS: Labetalol HCl 100 MG/20 ML VIAL SLOW IVP PRN ×2 (17:25→23:45)
[2023-02-21] MEDS: Atorvastatin Calcium 40 MG TAB PO SCH (21:35)
[2023-02-21] MEDS: levETIRAcetam 500 MG TAB PO SCH (21:36)
[2023-02-22] MEDS: Sodium Chloride 1 GM TAB PO SCH ×4 (03:47→21:01)
[2023-02-22] MEDS: Labetalol HCl 100 MG/20 ML VIAL SLOW IVP PRN ×4 (03:50→23:26)
[2023-02-22] MEDS: dilTIAZem CD 120 MG CAP PO SCH (10:34)
[2023-02-22] MEDS: Amiodarone 200 MG TAB PO SCH ×2 (10:35→21:00)
[2023-02-22] MEDS: Senokot S 8.6-50 MG TAB PO SCH ×2 (10:35→21:00)
[2023-02-22] MEDS: Polyethylene Glycol 3350 17 GM Packet PO SCH (10:37)
[2023-02-22 11:07] LABS: #Monocytes 0.7 thou/uL (0.11-0.59); #Neutrophils 6.1 thou/uL (1.40-6.50); %Basophils 0.3 % (0.0-1.0); %Eosinophils 0.5 % (0.0-10.0); %Lymphocytes 12.3 % (21.0-51.0); %Monocytes 9.2 % (0.0-10.0); %Neutrophils 77.2 % (42.0-75.0); Hemoglobin 13.6 g/dL (14.0-18.0); Mean Corpuscular HGB CONC 34.9 g/dL (32.0-36.0); Mean Corpuscular Volume 100.3 fl (78.0-98.0); Mean Platelet Volume 9.9 fL (7.4-10.4); Platelet Count 185 10x3/uL (130-400); RBC Distribution Width 14.5 % (11.5-14.5); Red Blood Cell (RBC) Count 3.89 mill/uL (4.70-6.10); White Blood Cell (WBC) Count 7.9 10x3/uL (4.8-10.8)
[2023-02-22 11:30] LABS: ALT (SGPT) 10 U/L (8-55); AST (SGOT) 12 U/L (5-34); Albumin 3.6 g/dL (3.4-4.8); Alkaline Phosphatase 80 U/L (40-110); Anion Gap 11 mmol/L (10-20); BUN (Urea Nitrogen) 13 mg/dL (8.4-25.7); Bilirubin, Total 0.9 mg/dL (0.2-1.2); Calc. Creatinine Clearance 106 mL/min (70-130); Carbon Dioxide 24 mmol/L (23-31); Chloride 102 mmol/L (98-107); Estimated GFR 92; Glucose 122 mg/dL (83-110); Potassium 3.1 mmol/L (3.5-5.1); Protein, Total 6.6 g/dL (5.8-8.1); Sodium 134 mmol/L (136-145)
[2023-02-22] MEDS ORDERED: Potassium Chloride 20 MEQ TAB PO SCH (13:00)
[2023-02-22 18:40] LABS: Potassium 3.7 mmol/L (3.5-5.1)
[2023-02-22] MEDS: Atorvastatin Calcium 40 MG TAB PO SCH (21:00)
[2023-02-22] MEDS: levETIRAcetam 500 MG (5 mL) VIAL SLOW IVP SCH (21:16)
[2023-02-23] MEDS: Labetalol HCl 100 MG/20 ML VIAL SLOW IVP PRN ×2 (04:51→09:36)
[2023-02-23] MEDS ORDERED: Sodium Chloride 0.9% 1,000 ML IV SCH (05:15)
[2023-02-23 05:55] LABS: #Eosinphils 0.1 thou/uL (0.0-0.7); #Monocytes 0.9 thou/uL (0.11-0.59); #Neutrophils 5.1 thou/uL (1.40-6.50); %Basophils 0.3 % (0.0-1.0); %Eosinophils 0.8 % (0.0-10.0); %Lymphocytes 19.8 % (21.0-51.0); %Monocytes 11.7 % (0.0-10.0); %Neutrophils 66.7 % (42.0-75.0); Hemoglobin 13.4 g/dL (14.0-18.0); Mean Corpuscular HGB CONC 34.4 g/dL (32.0-36.0); Mean Corpuscular Hemoglobin 34.3 pg (27.0-31.0); Mean Corpuscular Volume 99.7 fl (78.0-98.0); Mean Platelet Volume 9.9 fL (7.4-10.4); Platelet Count 189 10x3/uL (130-400); RBC Distribution Width 14.5 % (11.5-14.5); Red Blood Cell (RBC) Count 3.91 mill/uL (4.70-6.10); White Blood Cell (WBC) Count 7.6 10x3/uL (4.8-10.8)
[2023-02-23] MEDS: Sodium Chloride 1 GM TAB PO SCH ×3 (06:16→21:48)
[2023-02-23 06:21] LABS: Anion Gap 14 mmol/L (10-20); BUN (Urea Nitrogen) 17 mg/dL (8.4-25.7); Calc. Creatinine Clearance 105 mL/min (70-130); Calcium 9.1 mg/dL (7.8-10.44); Carbon Dioxide 21 mmol/L (23-31); Chloride 107 mmol/L (98-107); Estimated GFR 91; Glucose 99 mg/dL (83-110); Magnesium 1.6 mg/dL (1.6-2.6); Potassium 3.4 mmol/L (3.5-5.1); Sodium 139 mmol/L (136-145)
[2023-02-23] MEDS ORDERED: Magnesium 2 GM/50 ML(in water) 2 GM in Premix 1 BAG IVPB SCH (08:00)
[2023-02-23] MEDS ORDERED: Potassium Chloride 20 MEQ TAB PO SCH (08:00)
[2023-02-23] MEDS ORDERED: Lisinopril 5 MG TAB PO SCH (09:00)
[2023-02-23] MEDS: Amiodarone 200 MG TAB PO SCH ×2 (09:03→21:46)
[2023-02-23] MEDS: dilTIAZem CD 120 MG CAP PO SCH (09:04)
[2023-02-23] MEDS: levETIRAcetam 500 MG (5 mL) VIAL SLOW IVP SCH ×2 (09:05→21:58)
[2023-02-23] MEDS: Senokot S 8.6-50 MG TAB PO SCH ×2 (09:07→21:49)
[2023-02-23] MEDS: Lactulose 20 GM (30 mL) UDCUP PO SCH ×3 (09:26→21:48)
[2023-02-23] MEDS: Polyethylene Glycol 3350 17 GM Packet PO SCH (09:26)
[2023-02-23] MEDS: Atorvastatin Calcium 40 MG TAB PO SCH (21:48)
[2023-02-23] MEDS: hydrALAZINE 20 MG/ML VIAL SLOW IVP PRN (23:30)
[2023-02-24] MEDS: hydrALAZINE 20 MG/ML VIAL SLOW IVP PRN ×3 (04:28→23:32)
[2023-02-24] MEDS: Sodium Chloride 1 GM TAB PO SCH ×3 (04:28→21:56)
[2023-02-24] MEDS: levETIRAcetam 500 MG (5 mL) VIAL SLOW IVP SCH ×2 (08:29→21:57)
[2023-02-24] MEDS: Amiodarone 200 MG TAB PO SCH ×2 (08:31→21:56)
[2023-02-24] MEDS: Lisinopril 5 MG TAB PO SCH (08:31)
[2023-02-24] MEDS: dilTIAZem CD 120 MG CAP PO SCH (08:31)
[2023-02-24] MEDS: Polyethylene Glycol 3350 17 GM Packet PO SCH (08:32)
[2023-02-24] MEDS: Lactulose 20 GM (30 mL) UDCUP PO SCH ×2 (08:32→17:45)
[2023-02-24] MEDS: Senokot S 8.6-50 MG TAB PO SCH ×2 (08:32→21:56)
[2023-02-24] MEDS ORDERED: Polyethylene Glycol 3350 17 GM Packet PO PRN (15:12)
[2023-02-24] MEDS ORDERED: Betamethasone 0.1% Cream 45 GM TUBE TOP SCH (15:15)
[2023-02-24] MEDS ORDERED: Lisinopril 5 MG TAB PO SCH (21:00)
[2023-02-24] MEDS: Atorvastatin Calcium 40 MG TAB PO SCH (21:57)
[2023-02-24] MEDS: Betamethasone 0.1% Cream 45 GM TUBE TOP SCH (21:57)
[2023-02-25] MEDS: Sodium Chloride 1 GM TAB PO SCH (05:24)
[2023-02-25 05:32] LABS: #Basophils 0.1 thou/uL (0.0-0.2); #Eosinphils 0.1 thou/uL (0.0-0.7); #Monocytes 0.8 thou/uL (0.11-0.59); %Basophils 1.1 % (0.0-1.0); %Eosinophils 1.3 % (0.0-10.0); %Lymphocytes 19.8 % (21.0-51.0); %Monocytes 10.1 % (0.0-10.0); Hematocrit 47.4 % (42.0-52.0); Hemoglobin 14.9 g/dL (14.0-18.0); Mean Corpuscular HGB CONC 31.4 g/dL (32.0-36.0); Mean Corpuscular Hemoglobin 34.3 pg (27.0-31.0); Mean Platelet Volume 9.8 fL (7.4-10.4); Platelet Count 184 10x3/uL (130-400); RBC Distribution Width 14.2 % (11.5-14.5); Red Blood Cell (RBC) Count 4.35 mill/uL (4.70-6.10); White Blood Cell (WBC) Count 7.4 10x3/uL (4.8-10.8)
[2023-02-25 07:06] LABS: Albumin 3.3 g/dL (3.4-4.8)
[2023-02-25 07:08] LABS: Calcium 9.1 mg/dL (7.8-10.44); Chloride 117 mmol/L (98-107); Potassium 3.2 mmol/L (3.5-5.1); Sodium 145 mmol/L (136-145)
[2023-02-25 07:09] LABS: Globulin 3.4 g/dL (2.4-3.5); Glucose 78 mg/dL (83-110); Protein, Total 6.7 g/dL (5.8-8.1)
[2023-02-25 07:11] LABS: Anion Gap 18 mmol/L (10-20); Bilirubin, Total 1.1 mg/dL (0.2-1.2); Carbon Dioxide 13 mmol/L (23-31)
[2023-02-25 07:12] LABS: Alkaline Phosphatase 86 U/L (40-110); Calc. Creatinine Clearance 97 mL/min (70-130); Estimated GFR 90
[2023-02-25 07:13] LABS: BUN (Urea Nitrogen) 21 mg/dL (8.4-25.7)
[2023-02-25 07:14] LABS: AST (SGOT) 20 U/L (5-34)
[2023-02-25 07:15] LABS: ALT (SGPT) 9 U/L (8-55)
[2023-02-25] MEDS ORDERED: Potassium Chloride 20 MEQ TAB PO SCH (08:00)
[2023-02-25] MEDS: dilTIAZem CD 120 MG CAP PO SCH (08:41)
[2023-02-25] MEDS: Amiodarone 200 MG TAB PO SCH (08:42)
[2023-02-25] MEDS: Lisinopril 5 MG TAB PO SCH (08:42)
[2023-02-25] MEDS: Senokot S 8.6-50 MG TAB PO SCH (08:43)
[2023-02-25] MEDS: levETIRAcetam 500 MG (5 mL) VIAL SLOW IVP SCH (08:43)
[2023-02-25] MEDS: Betamethasone 0.1% Cream 45 GM TUBE TOP SCH (08:44)
[2023-02-25 15:04] LABS: Potassium 3.2 mmol/L (3.5-5.1)
[2023-02-25 16:40] VITALS: BP 153/76; TEMP 97.4
[2023-02-25] MEDS ORDERED: Lisinopril 10 MG TAB PO SCH (21:00)
[2023-02-26] MEDS ORDERED: Lisinopril 10 MG TAB PO SCH (09:00)
== END 2023-02-25 16:51 | DRG 85 ==
LOC: ERS 20:47 → CCU 21:35 → IMCU/EMU 02-18 17:46 → MSONC 02-21 13:13
PROVIDERS: ADMIT Family Medicine; ATTEND Family Medicine
PROC: 6A550Z2 Pheresis of Platelets, Single (ICD-10-PCS; 2023-02-17)
PROC: 4A00X4Z Measurement of Central Nervous Electrical Activity, External Approach (ICD-10-PCS; principal; 2023-02-20)
PROC: 5A09357 Assistance with Respiratory Ventilation, Less than 24 Consecutive Hours, Continuous Positive Airway Pressure (ICD-10-PCS; 2023-02-20)
PROC: 4A00X4Z Measurement of Central Nervous Electrical Activity, External Approach (ICD-10-PCS; 2023-02-22)
DX: S06.2X0A Diffuse traumatic brain injury without loss of consciousness, initial encounter (principal); G93.6 Cerebral edema; E22.2 Syndrome of inappropriate secretion of antidiuretic hormone; G93.40 Encephalopathy, unspecified; G81.92 Hemiplegia, unspecified affecting left dominant side; S05.11XA Contusion of eyeball and orbital tissues, right eye, initial encounter; R40.2410 Glasgow coma scale score 13-15, unspecified time; W18.30XA Fall on same level, unspecified, initial encounter; I10 Essential (primary) hypertension; K21.9 Gastro-esophageal reflux disease without esophagitis; I48.91 Unspecified atrial fibrillation; G89.11 Acute pain due to trauma; R60.0 Localized edema; E83.42 Hypomagnesemia; E87.8 Other disorders of electrolyte and fluid balance, not elsewhere classified; G93.89 Other specified disorders of brain; F10.10 Alcohol abuse, uncomplicated; G40.909 Epilepsy, unspecified, not intractable, without status epilepticus; D53.9 Nutritional anemia, unspecified; E66.9 Obesity, unspecified; G62.9 Polyneuropathy, unspecified; I73.9 Peripheral vascular disease, unspecified; E78.00 Pure hypercholesterolemia, unspecified; M19.90 Unspecified osteoarthritis, unspecified site; Z98.890 Other specified postprocedural states; Z87.891 Personal history of nicotine dependence; Z91.018 Allergy to other foods; Z86.73 Personal history of transient ischemic attack (TIA), and cerebral infarction without residual deficits; Z90.79 Acquired absence of other genital organ(s); Z68.28 Body mass index [BMI] 28.0-28.9, adult
CPT/HCPCS: 36415; 36430; 70450; 74018; 74230; 80048; 80053; 81001; 83735; 83930; 83935; 84100; 84132; 84300; 85025; 85610; 85730; 86850; 86900; 86901; 94760; 95711; 95819; G0390; J0360; J1953; J3475; J3480; J7050; J7070; P9035; S0028